=== PATIENT | male | born 1945 | race Caucasian/White ===

== ENCOUNTER 2016-06-24 16:08 | Inpatient (IN) | payer OTHER, MEDICARE ==
[2016-06-24] VITALS (9 sets, daily range): BP systolic 113–196; BP diastolic 59–92; PULSE 75–106; RESP 18–30; TEMP 98.1; O2SAT 84–99
[~2016-06-24] VITALS: Ht 182.9 cm; Wt 115.4 kg
[~2016-06-24 16:08] MED LIST: AZEL0.05 EACH NARE; B12-1CHW CHEW; COQ1200C3 PO; DILT180C56 PO; FISH500C PO; FURO40TA PO; MAGN400T PO; POTA10IN2 PO; PRED5TAB PO; RIVA20 PO; SIMV10TA PO; UMEC1AER INH; VENTAER INH; VITA100C6 PO; VITA400C28 PO
[2016-06-24] MEDS ORDERED: ETOMIDATE 20 MG/10 ML VIAL ONE (16:14)
[2016-06-24] MEDS ORDERED: SUCCINYLCHOLINE CHLORIDE 200 MG/10 ML VIAL ONE (16:15)
[2016-06-24] MEDS ORDERED: SODIUM CHLORIDE 0.9% FLUSH 5 ML FLUSH IVF PRN (16:15)
--- NOTE | 2016-06-24 16:45 | RADRPT ---
EXAM DATE/TIME: 06/24/2016 16:20 [facility] COMPARISON: CHEST PA & LAT, March 21, 2014, 20:13. INDICATIONS : Short of breath. MEDICAL HISTORY : Chronic obstructive pulmonary disease. Carcinoma, lung. Carcinoma, colon. SURGICAL HISTORY : left lower lobectomy,chest wall resection, colon resection ENCOUNTER: Initial ACUITY: 1 day PAIN SCORE: Non-responsive. LOCATION: Bilateral chest FINDINGS: There is a large pneumothorax on the right. Chronic scarring with volume loss on the left but the vol ume loss has increased compatible with a degree of probable acute tension. CONCLUSION: Large right pneumothorax with tension. Emergency department physician aware. Ryan Mccoy MD on June 24, 2016 at 16:42 Board Certified Radiologist. This report was verified electronically.
--- NOTE | 2016-06-24 17:15 | RADRPT ---
EXAM DATE/TIME: 06/24/2016 17:05 [facility] COMPARISON: CHEST PA & LAT, March 21, 2014, 20:13. CHEST SINGLE AP, June 24, 2016, 16:20. INDICATIONS : Post right chest tube placement MEDICAL HISTORY : Chronic obstructive pulmonary disease. Carcinoma, lung. Carcinoma, colon. SURGICAL HISTORY : left lower lobectomy,chest wall resection, colon resection ENCOUNTER: Subsequent ACUITY: 1 day PAIN SCORE: Non-responsive. LOCATION: Bilateral chest FINDINGS: Right chest tube is been placed, tip posterolaterally at the level of the midlung. The lung is reexpa nded. Chronic scarring and volume loss again noted on the left. CONCLUSION: 1. Interim chest tube placement. Pneumothorax has resolved. 2. Potential pleural-based mass laterally of the right lung base. There is also some fullness of the right hilum. CT of the chest suggested, preferably with intravenous contrast.3. Chronic scarring and volume loss on the left. Ryan Mccoy MD on June 24, 2016 at 17:11 Board Certified Radiologist. This report was verified electronically.
[2016-06-24 17:20] LABS: AUTOMATED NEUTROPHIL # 5.3 TH/MM3 (1.8-7.7); BASOPHIL # 0.1 TH/MM3 (0-0.2); BASOPHIL % 0.6 % (0.0-2.0); EOSINOPHIL # 0.1 TH/MM3 (0-0.4); EOSINOPHIL % 1.6 % (0.0-4.0); HEMATOCRIT 37.9 % (39.0-51.0); HEMO FLAGS DIFF FINAL; LYMPHOCYTE # 2.2 TH/MM3 (1.0-4.8); MEAN CELL VOLUME 94.2 FL (80.0-100.0); MEAN CORPUSCULAR HEMOGLOBIN 31.8 PG (27.0-34.0); MEAN CORPUSCULAR HGB CONC 33.7 % (32.0-36.0); MONO % 10.3 % (0.0-8.0); NEUT % 61.5 % (16.0-70.0); PLATELET COUNT 133 TH/MM3 (150-450); RED BLOOD COUNT 4.03 MIL/MM3 (4.50-5.90); RED CELL DISTRIBUTION WIDTH 15.6 % (11.6-17.2); WHITE BLOOD COUNT 8.6 TH/MM3 (4.0-11.0)
[2016-06-24 17:32] LABS: ANION GAP 10 MEQ/L (5-15); AST (GOT) 18 U/L (15-37); BICARBONATE 30.1 MEQ/L (21.0-32.0); BLOOD UREA NITROGEN 24 MG/DL (7-18); CHLORIDE 95 MEQ/L (98-107); GLOMERULAR FILTRATION RATE 62 ML/MIN (>89); MAGNESIUM 1.7 MG/DL (1.5-2.5); POTASSIUM 3.2 MEQ/L (3.5-5.1); SODIUM (NA) 135 MEQ/L (136-145)
[2016-06-24 17:33] LABS: APTT (PATIENT) 27.1 SEC (24.3-30.1); INTERNATIONAL NORMALIZED RATIO 1.1 RATIO
[2016-06-24 17:37] LABS: ALKALINE PHOSPHATASE 95 U/L (45-117); ALT (GPT) 23 U/L (12-78); TOTAL BILIRUBIN ADULT 0.7 MG/DL (0.2-1.0)
[2016-06-24 17:56] LABS: BLOOD GAS BASE EXCESS 2.7 mmol/L (-2-2); BLOOD GAS CARBOXYHEMOGLOBIN 2.2 % (0-4); BLOOD GAS HCO3 27 mmol/L (22-26); BLOOD GAS METHEMOGLOBIN 1.9 % (0-2); BLOOD GAS O2 HGB SATURATION 96 % (90-100); BLOOD GAS PCO2 46 mmHg (38-42); BLOOD GAS PO2 239 mmHG (61-120); BLOOD GAS TOTAL HGB 12.3 G/DL (12.0-16.0); CRITICAL VALUE NO; TEMP CORR TO 98.6
[2016-06-24 17:57] LABS: DRAW SITE RT BRACHIAL; FIO2 100 %; LITER FLOW 15 L/M; NUMBER OF ARTERIAL PUNCTURES 1; OXYGEN DEVICE NON REBREATHER; STAT YES
[2016-06-24] MEDS ORDERED: MULT-135 PO (18:53)
[2016-06-24] MEDS ORDERED: MAGN400T2 PO (18:53)
[2016-06-24] MEDS ORDERED: XARE20TA PO (18:53)
[2016-06-24] MEDS ORDERED: PRED5TAB PO (18:53)
[2016-06-24] MEDS ORDERED: DILT180C56 PO (18:53)
[2016-06-24] MEDS ORDERED: FURO1TAB60 PO (18:53)
[2016-06-24] MEDS ORDERED: UMEC1AER INH (18:53)
[2016-06-24] MEDS ORDERED: VENTAER INH (18:53)
[2016-06-24] MEDS ORDERED: CHOL50008 PO (18:53)
[2016-06-24] MEDS ORDERED: POTA-163 PO (18:53)
[2016-06-24] MEDS ORDERED: CYAN1TAB22 PO (18:53)
[2016-06-24] MEDS ORDERED: AZEL1SPR2 EACH NARE (18:53)
[2016-06-24] MEDS ORDERED: GLYB2.5T3 PO (18:53)
[2016-06-24] MEDS ORDERED: COQ1200C PO (18:53)
[2016-06-24] MEDS ORDERED: IPRASOL NEB (18:53)
[2016-06-24] MEDS ORDERED: ZOCO40TA PO (18:53)
[2016-06-24] MEDS ORDERED: TAMS0.4C4 PO (18:53)
--- NOTE | 2016-06-24 19:49 | PD ---
HPI Chief Complaint: Respiratory Distress Time Seen by Provider: 16:12 Travel History International Travel<30 days: No Contact w/Intl Traveler<30days: No Traveled to known affect area: No History of Present Illness HPI This 70-year-old man presents to the emergency department in extremis with shortness of breath. Patient describes couple days of URI symptoms, gradually worsening, with abrupt worsening this morning. He states he was using the commode when he had abrupt onset of severe shortness of breath. Symptoms been worsening since onset. He called the ambulance. He has a history of lung CA, status post partial resection on the left. No history of previous similar symptoms. With EMS he received Solu-Medrol, nebs, and was placed on nonrebreather. The best oxygen saturation to get on him was in the high 70s low 80s. History Past Medical History Narrative Medical History of colon cancer, cured History of lung cancer, probably cured but still being evaluated. He follows with Dr. Shoemaker. Social History Alcohol Use: No Tobacco Use: No (QUIT 16 YRS AGO) Allergies-Medications (Allergen,Severity, Reaction): Coded Allergies: Contrast Media (Verified Allergy, Severe, Hives, 06/24/16) Reported Meds & Prescriptions Reported Meds & Active Scripts Active Reported Xarelto (Rivaroxaban) 20 Mg Tab 20 Mg PO DAILY Ventolin Hfa 18 GM Inh (Albuterol Sulfate) 90 Mcg/Act Aer 1-2 Puff INH Q4-6H PRN Tamsulosin (Tamsulosin HCl) 0.4 Mg Cap 0.4 Mg PO HS Zocor (Simvastatin) 40 Mg Tab 40 Mg PO HS Prednisone 5 Mg Tab 5 Mg PO DAILY Potassium Chloride ER (Potassium Chloride) 20 Meq Tab 20 Meq PO DAILY Multi Vitamin (Multiple Vitamin) 1 Tab Tab 1 Tab PO DAILY Magnesium Oxide 400 Mg Tab 400 Mg PO DAILY Duoneb (Ipratropium-Albuterol Neb) 0.5-2.5 Mg/3 Ml Neb 1 Vial NEB BID Glyburide 2.5 Mg Tab 2.5 Mg PO DAILY Take with meals at the same time each day Lasix (Furosemide) 40 Mg Tab 40 Mg PO DAILY Diltiazem CD 24 HR 180 Mg Caper 180 Mg PO DAILY Vitamin D3 (Cholecalciferol) 5,000 Unit Tab 5,000 Units PO DAILY Coq10 (Coenzyme Q10 (Ubidecarenone)) 200 Mg Cap 200 Mg PO DAILY Vitamin B-12 (Cyanocobalamin) 5,000 Mcg Tab 5,000 Mcg PO DAILY Azelastine Nasal [place] (Azelastine HCl) 0.1% [place] 1 [place] EACH NARE DAILY Anoro Ellipta Inh (Umeclidinium/Vilanterol) 62.5-25 Mcg/Act Aero 1 Puff INH DAILY Review of Systems ROS Limitations: Clinical Condition Physical Exam Narrative GENERAL: 70-year-old man, marked respiratory distress. HEAD: Atraumatic. Normocephalic. EYES: Pupils equal and round. No scleral icterus. No injection or drainage. ENT: No nasal bleeding or discharge. Mucous membranes pink and moist. NECK: Trachea midline. No JVD. CARDIOVASCULAR: Tachycardia. No appreciable murmurs. RESPIRATORY: Marked respiratory distress. Faint wheezing on the left. Diminished breath sounds on the right. GASTROINTESTINAL: Abdomen soft, non-tender, nondistended. Hepatic and splenic margins not palpable. MUSCULOSKELETAL: No obvious deformities. No edema. NEUROLOGICAL: Awake and alert. No obvious cranial nerve deficits. Motor grossly within normal limits. Normal speech. PSYCHIATRIC: Appropriate mood and affect; insight and judgment normal. Data Data Last Documented VS Vital Signs Date Time Temp Pulse Resp B/P Pulse Ox O2 Delivery O2 Flow Rate FiO2 06/24/16 19:27 86 28 123/64 97 Non-Rebreather 15 06/24/16 16:11 98.1 Orders Complete Blood Count With Diff (06/24/16 16:12) Comprehensive Metabolic Panel (06/24/16 16:12) B-Type Natriuretic Peptide (06/24/16 16:12) D-Dimer (06/24/16 16:12) Act Partial Throm Time (Ptt) (06/24/16 16:12) Prothrombin Time / Inr (Pt) (06/24/16 16:12) Magnesium (Mg) (06/24/16 16:12) Troponin I (06/24/16 16:12) Arterial Blood Gas (Abg) (06/24/16 16:12) Iv Access Insert/Monitor (06/24/16 16:12) Electrocardiogram (06/24/16 16:12) Ecg Monitoring (06/24/16 16:12) Oximetry (06/24/16 16:12) Oxygen Administration (06/24/16 16:12) Chest, Single Ap (06/24/16 16:12) Sodium Chloride 0.9% Flush (Ns Flush) (06/24/16 16:15) Resp Bipap / Cpap Non Invas Vt (06/24/16 16:12) Etomidate Inj (Amidate Inj) (06/24/16 16:14) Succinylcholine Inj (Quelicin Inj) (06/24/16 16:15) Chest, Single Ap (06/24/16 ) Admit Order (Ed Use Only) (06/24/16 ) Labs Laboratory Tests Test 06/24/16 06/24/16 16:40 17:40 White Blood Count 8.6 TH/MM3 Red Blood Count 4.03 MIL/MM3 Hemoglobin 12.8 GM/DL Hematocrit 37.9 % Mean Corpuscular Volume 94.2 FL Mean Corpuscular Hemoglobin 31.8 PG Mean Corpuscular Hemoglobin 33.7 % Concent Red Cell Distribution Width 15.6 % Platelet Count 133 TH/MM3 Mean Platelet Volume 8.2 FL Neutrophils (%) (Auto) 61.5 % Lymphocytes (%) (Auto) 26.0 % Monocytes (%) (Auto) 10.3 % Eosinophils (%) (Auto) 1.6 % Basophils (%) (Auto) 0.6 % Neutrophils # (Auto) 5.3 TH/MM3 Lymphocytes # (Auto) 2.2 TH/MM3 Monocytes # (Auto) 0.9 TH/MM3 Eosinophils # (Auto) 0.1 TH/MM3 Basophils # (Auto) 0.1 TH/MM3 CBC Comment DIFF FINAL Differential Comment Prothrombin Time 12.0 SEC Prothromb Time International 1.1 RATIO Ratio Activated Partial 27.1 SEC Thromboplast Time D-Dimer Quantitative (PE/DVT) 0.48 MG/L FEU Sodium Level 135 MEQ/L Potassium Level 3.2 MEQ/L Chloride Level 95 MEQ/L Carbon Dioxide Level 30.1 MEQ/L Anion Gap 10 MEQ/L Blood Urea Nitrogen 24 MG/DL Creatinine 1.16 MG/DL Estimat Glomerular Filtration 62 ML/MIN Rate Random Glucose 213 MG/DL Calcium Level 9.1 MG/DL Magnesium Level 1.7 MG/DL Total Bilirubin 0.7 MG/DL Aspartate Amino Transf 18 U/L (AST/SGOT) Alanine Aminotransferase 23 U/L (ALT/SGPT) Alkaline Phosphatase 95 U/L Troponin I LESS THAN 0.02 NG/ML B-Type Natriuretic Peptide 184 PG/ML Total Protein 8.1 GM/DL Albumin 3.7 GM/DL Blood Gas Puncture Site RT BRACHIAL Blood Gas Patient Temperature 98.6 Blood Gas HCO3 27 mmol/L Blood Gas Base Excess 2.7 mmol/L Blood Gas Oxygen Saturation 96 % Arterial Blood pH 7.39 Arterial Blood Partial 46 mmHg Pressure CO2 Arterial Blood Partial 239 mmHG Pressure O2 Arterial Blood Oxygen Content 17.0 Vol % Arterial Blood 2.2 % Carboxyhemoglobin Arterial Blood Methemoglobin 1.9 % Blood Gas Hemoglobin 12.3 G/DL Oxygen Delivery Device NON REBREATHER Blood Gas Liter Flow 15 L/M Blood Gas Inspired Oxygen 100 % [facility] Medical Decision Making Medical Screen Exam Complete: Yes Emergency Medical Condition: Yes Interpretation(s) LABS: CBC remarkable for mild anemia. CMP generally unremarkable. Troponin negative BNP 184 Initial chest x-ray shows large right sided pneumothorax, repeat after chest tube shows resolution of the pneumothorax as well as a pleural-based mass laterally in the right lung base with fullness in the right hilum. Differential Diagnosis Pneumothorax, pneumonia, tumor, PE, other Narrative Course Medical decision making 70-year-old male presents emergent department in extremis respiratory distress found to have asymmetric lung sounds just of pneumothorax, confirmed on x-ray. Emergent chest tube was placed at the bedside by myself following procedural sedation with Etomidate. Patient tolerated well. Patient be admitted for further evaluation. Procedures Procedure Narrative After the risks and benefits were discussed the following procedure was performed: MODERATE SEDATION: The patient was placed on a shoe repairer and pulse oximetry. An ambu bag and suction was immediately available at bedside. The patient was monitored by the nurse. Oxygen saturation, heart rate and blood pressure were monitored. Procedural sedation was acheived using 8 mg of vomiting. The patient was observed until awake and alert. Procedural Sedation time in attendance was 25 minutes. CHEST TUBE THORACOSTOMY: The right chest was prepped with Betadine and sterilely draped. The area of the fifth intercostal interspace was infiltrated with 1% lidocaine plain. A 0.5 centimeter incision was made with a scalpel at the fifth intercostal space. Pigtail catheter was placed using trocar. Tube draining well. The thoracostomy tube was secured with suture. Sterile seal dressing placed. Patient tolerated procedure well. Diagnosis Primary Impression: Pneumothorax Qualified Code: J93.11 - Primary spontaneous pneumothorax Gary Gomez MD Jun 24, 2016 19:49
[2016-06-24] MEDS ORDERED: SODIUM CHLORIDE 0.9% FLUSH 5 ML FLUSH FLUSH PRN (20:15)
[2016-06-24] MEDS ORDERED: NALOXONE HCL 0.4 MG/ML AMP IV PRN (20:15)
[2016-06-24] MEDS: SODIUM CHLORIDE 0.9% FLUSH 5 ML FLUSH FLUSH SCH (21:38)
[2016-06-25] VITALS (12 sets, daily range): BP systolic 104–154; BP diastolic 62–95; PULSE 78–134; RESP 20–40; TEMP 97.9–98.9; O2SAT 88–100
[2016-06-25 04:23] LABS: AUTOMATED NEUTROPHIL # 5.3 TH/MM3 (1.8-7.7); BASOPHIL % 0.2 % (0.0-2.0); HEMATOCRIT 36.5 % (39.0-51.0); HEMO FLAGS DIFF FINAL; LYMPH % 2.9 % (9.0-44.0); LYMPHOCYTE # 0.2 TH/MM3 (1.0-4.8); MEAN CELL VOLUME 93.8 FL (80.0-100.0); MEAN CORPUSCULAR HGB CONC 34.1 % (32.0-36.0); MONO % 1.4 % (0.0-8.0); NEUT % 95.5 % (16.0-70.0); PLATELET COUNT 116 TH/MM3 (150-450); RED BLOOD COUNT 3.89 MIL/MM3 (4.50-5.90); RED CELL DISTRIBUTION WIDTH 15.4 % (11.6-17.2); WHITE BLOOD COUNT 5.6 TH/MM3 (4.0-11.0)
[2016-06-25 04:40] LABS: BICARBONATE 27.7 MEQ/L (21.0-32.0); POTASSIUM 4.2 MEQ/L (3.5-5.1)
--- NOTE | 2016-06-25 05:31 | HHI.HP ---
HPI Service [facility] Primary Care Physician Debbie Mcgee DO Admission Diagnosis Pneumothorax Diagnoses: Chief Complaint: Shortness of breath, low O2 sats Travel History International Travel<30 Days: No Contact w/Intl Traveler <30 Da: No Traveled to Known Affected Are: No History of Present Illness History from patient, ER physician communication, and review of medical records. Patient reported that he has been chronically short of breath for the past several months. However he stated yesterday, he also immediately noted that his O2 saturation were going down to the 70s. He stated he just was not reported to catch his breath and told his to call 911. He denies any fever. Denies hemoptysis. Patient attributed this to his constipation. He stated he was constipated all day long Has been sitting on the toilet all day long. He reports of history of emphysema. However is not sure whether he has bullous emphysema. Patient also has history of lung cancer bilaterally. However he did complete all treatments by 2013. In the emergency room, patient was found to have large right sided tension pneumothorax. Chest tube was placed by ER physician. Repeat chest x-ray post chest tube placement showed well expanded lungs. No complications. Review of Systems Constitutional: DENIES: Fatigue, Fever, Weight gain, Weight loss, Chills Respiratory: COMPLAINS OF: Cough, Shortness of breath, DENIES: Apneas, Snoring , Wheezing, Hemoptysis, Sputum production Cardiovascular: COMPLAINS OF: Dyspnea on Exertion, Lower Extremity Edema, Orthopnea, DENIES: Chest pain, Palpitations, Syncope, PND Gastrointestinal: COMPLAINS OF: Constipation, DENIES: Abdominal pain, Black stools, Bloody stools, Diarrhea, Nausea, Vomiting Genitourinary: DENIES: Urinary frequency, Urinary incontinence, Urgency, Hematuria, Dysuria, Nocturia Musculoskeletal: COMPLAINS OF: Muscle aches, DENIES: Joint pain, Stiffness, Back pain, Neck pain Hematologic/lymphatic: DENIES: Bruising Neurologic: COMPLAINS OF: Tremor, DENIES: Abnormal gait, Headache, Localized weakness, Seizures, Poor Balance Psychiatric: COMPLAINS OF: Anxiety Past Family Social History Past Medical History Hypertension Diet control diabetes Atrial fibrillationon chronic anticoagulation was Xarelto COPD/emphysema Left lower lobe lung cancerin 2005. Left lower lobectomy, chemotherapy, radiation therapy then. Right lung cancersmall [id number]. Status post chemotherapy and radiation therapy then. History of colon [id number]. Status post partial colon resection. 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 Multiple ureteral stents placements and removals. Latest intervention was last Friday by Dr. Aviles with cystoscopy and balloon dilatation versus removal. Chronic kidney disease Past Surgical History Partial colon resection Left lower lobe removal Hernia repair MediPort placement Reported Medications Patient's medications listed in EMR just reviewed. Patient does have a list of his meds on his phone. Allergies: Coded Allergies: Contrast Media (Verified Allergy, Severe, Hives, 06/24/16) Family History Mother who at 43 years old from breast cancer. Father at 49. Unknown cause. Social History Used to smoke cigarettes quit in 1999. Denies any alcohol abuse or use. Lives with his . Still driving. Physical Exam Vital Signs Vital Signs Date Time Temp Pulse Resp B/P Pulse Ox O2 Delivery O2 Flow Rate FiO2 06/24/16 23:17 87 18 113/59 97 Non-Rebreather 15 06/24/16 21:45 97 Non-Rebreather 12.00 06/24/16 21:40 98 Non-Rebreather 15 06/24/16 21:40 75 24 128/60 98 Non-Rebreather 15 06/24/16 21:30 96 Venturi Mask 50 06/24/16 21:06 94 Venturi Mask 50 06/24/16 19:30 99 Non-Rebreather 15.00 06/24/16 19:27 86 28 123/64 97 Non-Rebreather 15 06/24/16 17:54 88 20 129/61 99 Non-Rebreather 06/24/16 16:30 106 30 84 BiPAP 06/24/16 16:30 30 84 BiPAP 06/24/16 16:30 84 BiPAP 06/24/16 16:11 98.1 106 30 196/92 91 Physical Exam GENERAL: This is a well-nourished, well-developed patient, in no apparent distress. SKIN: No rashes, ecchymoses or lesions. Cool and dry. HEAD: Atraumatic. Normocephalic. No temporal or scalp tenderness. EYES:. No scleral icterus. No injection or drainage. Airway patent. NECK: Trachea midline. No JVD. Supple, nontender, no meningeal signs. CARDIOVASCULAR: Regular rate and rhythm without murmurs, gallops, or rubs. RESPIRATORY: Clear to auscultation. Breath sounds equal bilaterally. No wheezes , rales, or rhonchi. GASTROINTESTINAL: Abdomen soft, non-tender, nondistended. No hepato-splenomegaly , or palpable masses. No guarding. MUSCULOSKELETAL: Extremities without clubbing, cyanosis, or edema. No calf tenderness. NEUROLOGICAL: Awake and alert. Motor and sensory grossly within normal limits. Five out of 5 muscle strength in all muscle groups. Normal speech. Laboratory Laboratory Tests Test 06/24/16 06/24/16 06/25/16 16:40 17:40 03:30 White Blood Count 8.6 5.6 Red Blood Count 4.03 3.89 Hemoglobin 12.8 12.4 Hematocrit 37.9 36.5 Mean Corpuscular Volume 94.2 93.8 Mean Corpuscular Hemoglobin 31.8 32.0 Mean Corpuscular Hemoglobin 33.7 34.1 Concent Red Cell Distribution Width 15.6 15.4 Platelet Count 133 116 Mean Platelet Volume 8.2 8.3 Neutrophils (%) (Auto) 61.5 95.5 Lymphocytes (%) (Auto) 26.0 2.9 Monocytes (%) (Auto) 10.3 1.4 Eosinophils (%) (Auto) 1.6 0.0 Basophils (%) (Auto) 0.6 0.2 Neutrophils # (Auto) 5.3 5.3 Lymphocytes # (Auto) 2.2 0.2 Monocytes # (Auto) 0.9 0.1 Eosinophils # (Auto) 0.1 0.0 Basophils # (Auto) 0.1 0.0 CBC Comment DIFF FINAL DIFF FINAL Differential Comment Prothrombin Time 12.0 Prothromb Time International 1.1 Ratio Activated Partial 27.1 Thromboplast Time D-Dimer Quantitative (PE/DVT) 0.48 Sodium Level 135 139 Potassium Level 3.2 4.2 Chloride Level 95 102 Carbon Dioxide Level 30.1 27.7 Anion Gap 10 9 Blood Urea Nitrogen 24 20 Creatinine 1.16 0.96 Estimat Glomerular Filtration 62 78 Rate Random Glucose 213 168 Calcium Level 9.1 8.7 Magnesium Level 1.7 Total Bilirubin 0.7 Aspartate Amino Transf 18 (AST/SGOT) Alanine Aminotransferase 23 (ALT/SGPT) Alkaline Phosphatase 95 Troponin I LESS THAN 0.02 B-Type Natriuretic Peptide 184 Total Protein 8.1 Albumin 3.7 Blood Gas Puncture Site RT BRACHIAL Blood Gas Patient Temperature 98.6 Blood Gas HCO3 27 Blood Gas Base Excess 2.7 Blood Gas Oxygen Saturation 96 Arterial Blood pH 7.39 Arterial Blood Partial 46 Pressure CO2 Arterial Blood Partial 239 Pressure O2 Arterial Blood Oxygen Content 17.0 Arterial Blood 2.2 Carboxyhemoglobin Arterial Blood Methemoglobin 1.9 Blood Gas Hemoglobin 12.3 Oxygen Delivery Device NON REBREATHER Blood Gas Liter Flow 15 Blood Gas Inspired Oxygen 100 Result Diagram: 06/25/160 06/25/16 033 Imaging Vital Signs Date Time Temp Pulse Resp B/P Pulse Ox O2 Delivery O2 Flow Rate FiO2 06/25/16 06:17 90 20 145/74 99 Non-Rebreather 15 06/24/16 21:30 50 06/24/16 16:11 98.1 Assessment and Plan Assessment and Plan Impression: Right pneumothoraxwith tension. Status post chest tube placement. In ER Hypertension Diet control diabetes Atrial fibrillationon chronic anticoagulation was Xarelto COPD/emphysema Left lower lobe lung cancerin 2005. Left lower lobectomy, chemotherapy, radiation therapy then. Right lung cancersmall [id number]. Status post chemotherapy and radiation therapy then. History of colon [id number]. Status post partial colon resection. 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 Multiple ureteral stents placements and removals. Latest intervention was last Friday by Dr. Aviles with cystoscopy and balloon dilatation versus removal. Chronic kidney disease Plan: Continue chest tube. Pulmonology consult with patient's english and reading instructor. Repeat chest x-ray in about 12 hours. Resume home meds. Once the output from the chest tube is not significant, we'll DC the tube. For now pain control. Nebulizers scheduled and when necessary. Due to prophylaxiswith SCD. Discussed Condition With Patient, ER physician Physician Certification 2 Midnight Certification Type: Admission for Inpatient Services Order for Inpatient Services The services are ordered in accordance with Medicare regulations or non- Medicare payer requirements, as applicable. In the case of services not specified as inpatient-only, they are appropriately provided as inpatient services in accordance with the 2-midnight benchmark. Estimated LOS (days): 3 days is the estimated time the patient will need to remain in the hospital, assuming treatment plan goals are met and no additional complications. Post-Hospital Plan: Home Health Heber Falk MD Jun 25, 2016 05:31
[2016-06-25] MEDS: RESP: ALBUTEROL 2.5 MG/IPRATROPIUM 0.5 MG NEB (SCH) NEB ×3 (09:21→21:06)
[2016-06-25] MEDS: DILTIAZEM-CD 180 MG CAP ER PO SCH (09:53)
[2016-06-25] MEDS: SODIUM CHLORIDE 0.9% FLUSH 5 ML FLUSH FLUSH SCH ×2 (09:53→21:00)
[2016-06-25] MEDS: FUROSEMIDE 40 MG TAB PO SCH (09:54)
[2016-06-25] MEDS: predniSONE 5 MG TAB PO SCH (09:54)
[2016-06-25] MEDS: POTASSIUM CHLORIDE 20 MEQ CONTROLLED RELEASE TAB PO SCH (09:54)
[2016-06-25] MEDS: MAGNESIUM OXIDE 400 MG TAB PO SCH (09:55)
[2016-06-25] MEDS: RIVAROXABAN 20 MG TAB PO SCH (09:55)
[2016-06-25] MEDS: RESP: ALBUTEROL 2.5 MG/IPRATROPIUM 0.5 MG NEB (PRN) NEB (11:58)
--- NOTE | 2016-06-25 12:49 | RADRPT ---
EXAM DATE/TIME: 06/25/2016 12:18 [facility] COMPARISON: CHEST SINGLE AP, June 24, 2016, 16:20. CHEST SINGLE AP, June 24, 2016, 17:05. INDICATIONS : Short of breath, right lung collapse. MEDICAL HISTORY : None. SURGICAL HISTORY : None. ENCOUNTER: Subsequent ACUITY: 2 days PAIN SCORE: 3/10 LOCATION: Right chest FINDINGS: There is a right-sided pneumothorax with approximately 2.8 cm of separation along the mid right hemit horax. The left lung remains grossly clear and well-aerated. There is no significant midline shift. T he heart size is stable. The small chest tube appears to be in place in the right hemithorax. The findings were called by telephone to the nurse taking care of the patient. CONCLUSION: Right-sided pneumothorax with approximately 2.8 cm of separation. Ion Manrique MD on June 25, 2016 at 12:41 Board Certified Radiologist. This report was verified electronically.
[2016-06-25] MEDS ORDERED: DILTIAZEM INJ 125 MG in SODIUM CHLORIDE 0.9% INJ 100 ML IV SCH (13:00)
[2016-06-25] MEDS ORDERED: DILTIAZEM HCL 25 MG/5 ML VIAL IV PUSH ONE (13:00)
[2016-06-25] MEDS ORDERED: SODIUM CHLORIDE 0.9% FLUSH 5 ML FLUSH IVF PRN (13:00)
[2016-06-25] MEDS ORDERED: MIDAZOLAM HCL 2 MG/2 ML VIAL ONE (14:45)
--- NOTE | 2016-06-25 16:10 | PD.RAD ---
Post Procedure Progress Note Pre Procedure Diagnosis: (1) Pneumothorax Post Procedure Diagnosis: (1) Pneumothorax Procedure Date: Jun 25, 2016 Supervising Radiologist: Ryan Hillman Proceduralist/Assist: RT Martín(R) Anesthesia: Local, Conscious Sedation Plan of Activity Patient to Unit: Critical Care Patient Condition: Critical See PACS Report for procedural detail/treatment Drainage Procedure Procedure 1 Imaging Guidance: Fluoroscopy Side: Right Procedure Type: Chest Tube Non-Tunneled Procedure: Placement Macedonian: 12 Drainage: Pleurovac Ryan Hillman MD Jun 25, 2016 16:10
--- NOTE | 2016-06-25 16:33 | RADRPT ---
EXAM DATE/TIME: 06/25/2016 16:12 [facility] COMPARISON: CHEST SINGLE AP, June 25, 2016, 12:18. INDICATIONS : Chest tube placement. MEDICAL HISTORY : Carcinoma, colon. Chronic obstructive pulmonary disease. Carcinoma, lung. SURGICAL HISTORY : left lower lobectomy,chest wall resection, colon resection. ENCOUNTER: Subsequent ACUITY: 2 days PAIN SCORE: 0/10 LOCATION: Bilateral chest FINDINGS: The exam demonstrates a right-sided chest tube in good position. There is complete reinflation of the right lung. There is a small amount of subcutaneous emphysema. There are chronic interstitial change s seen bilaterally. CONCLUSION: 1. Right chest tube in good position with complete reinflation of the right lung. Aron Dorsey MD on June 25, 2016 at 16:31 Board Certified Radiologist. This report was verified electronically.
--- NOTE | 2016-06-25 16:40 | RADRPT ---
EXAM DATE/TIME: 06/25/2016 14:56 [facility] COMPARISON: No previous studies available for comparison. INDICATIONS : Patient presents with right sided pneumothorax in need of chest tube placement to inflate lung. MEDICAL HISTORY : HTN Afib COPD Left lower lobe cancer in 2006 Right lung cancer- small cell- 2014 History of colon cancer 2002 Left ureteral stricture Chronic kidney disease SURGICAL HISTORY : Partial colon resection Left lower lobe removal Hernia repair Port placement ENCOUNTER: Initial ACUITY: 1 day PAIN SCORE: 0/10 LOCATION: N/A FLUORO TIME: 1.4 minutes SEDATION TIME: 30 minutes MEDICATION(S): 1.) 1.5 mg midazolam (Versed) IV 2.) 75 mcg fentanyl (Sublimaze) IV DEVICE(S): 1.) 12 [place] non-locking catheter PROCEDURE : 1. Fluoroscopically guided chest tube placement. 2. Conscious sedation with continuous EKG and oximetry monitoring. The risks, benefits and alternatives to the procedure were explained and verbal and written consent w as obtained. The site was prepped in sterile fashion. Full sterile technique was used, including ca p, mask, sterile gloves and gown and a large sterile sheet. Hand hygiene and 2% chlorhexidine and/or betadine/alcohol prep was utilized per protocol for cutaneous antisepsis. The skin and subcutaneous tissues were infiltrated with local anesthetic solution. With fluoroscopic guidance the chest was punctured between the first and second interspace and the pr escribed catheter was placed in the lung apex. Wall suction was applied. Post procedure images demon strate satisfactory position of the tube. The catheter was sutured in place and a Percu-Stay was danyell lied. Conscious sedation was performed with the prescribed dosages and duration as above. The patient kanu ated the procedure well and there were no complications. EKG and oximetry remained stable throughout the procedure. The patient was sent to post anesthesia recovery in stable condition. CONCLUSION: Uncomplicated chest tube placement as above. Ryan Hillman MD on June 25, 2016 at 16:38 Board Certified Radiologist. This report was verified electronically.
--- NOTE | 2016-06-25 18:48 | MB ---
cc: GÓMEZ YEUNG MD DATE OF CONSULTATION 06/25/[address] Falk. REASON FOR CONSULTATION Pneumothorax and shortness of breath. HISTORY OF THE PRESENT ILLNESS Ms. Watkins is a pleasant 70-year-old male who is known to me from the office. He has history of non-small cell carcinoma status post resection and then a small cell carcinoma of the lung. He has chemotherapy and radiation treatment. He also developed radiation pneumonitis. The patient came to the hospital with sudden onset of shortness of breath. The patient states that he was feeling constipated. He has been going in and out of the bathroom. While he was in the bathroom he was straining and suddenly he felt chest pain and shortness of breath to the extent that he could not breathe. The patient's called the [facility]. He was brought to the hospital. He was found to have a large right pneumothorax. He had a chest tube placement with re-expansion of the lung. He still on non-rebreather mask but feels his breathing is better, has mild chest pain. No fever or chills. No night sweats. LABORATORY DATA His WBC count is 5.6, hemoglobin 12.4, hematocrit 36.5, MCV 93, platelet count 116. Sodium 139, potassium 4.2, chloride 102, CO2 27, BUN 20, creatinine 0.96. INR is 1.1. Blood gas on non-rebreather mask pH 7.39, pCO2 46, pO2 239, bicarb 27. PAST MEDICAL HISTORY Significant for: 1. A history of non-small cell carcinoma of the lung status post left lower lobectomy. 2. Small cell carcinoma of the lung status post chemotherapy and radiation therapy. 3. CA of the colon. 4. COPD. 5. Ureteral stent placement. 6. Atrial fibrillation. 7. Hypertension. MEDICATIONS He is currently takin. Flomax 0.4 mg a day. 2. Pravachol 80 mg a day. 3. Diltiazem drip. 4. Lasix 40 mg a day. 5. Potassium supplement. 6. Prednisone 5 mg a day. 7. Xarelto 20 mg a day. 8. Albuterol/Atrovent nebulizer treatment. ALLERGIES ALLERGIC TO CONTRAST MEDIA. SOCIAL HISTORY He is . Mother of breast cancer. He has history of smoking in the past. FAMILY HISTORY Noncontributory. REVIEW OF SYSTEMS Normally he is up, around and active. Does not use oxygen but he is on prednisone for radiation pneumonitis which was being weaned. No seizure, stroke or epilepsy.. PHYSICAL EXAMINATION GENERAL: Well built, well-nourished male in mild to moderate short of breath. He is on a nonrebreather mask. VITAL SIGNS: Blood pressure 114/63, heart rate 80, respirations 20, temperature 98.9. HEENT: Examination unremarkable. NECK: Supple. JVP not raised. CHEST: He has a right chest tube in place. Good breath sounds bilaterally. He has air leak. No SQ emphysema. CARDIOVASCULAR: S1, S2 irregular. ABDOMEN: Soft, nondistended. Bowel sounds are present. EXTREMITIES: 1+ pitting edema. IMPRESSION 1. Spontaneous right pneumothorax status post chest tube placement. 2. Small cell carcinoma of the lung status post left lower lobectomy. 3. Small cell carcinoma of the lung status post chemotherapy and radiation therapy. 4. History of CA of the colon. 5. COPD. 6. Atrial fibrillation. PLAN The patient is being admitted to the Intensive Care Unit. We will leave the chest tube to suction once the air leak stops, then we will repeat chest x-ray and clamp the chest tube. Continue aerosol treatment and p.o. steroid. He is on diltiazem and Xarelto. Supplement the oxygen to keep the saturation greater than 90%. Further treatment will depend on the course in the hospital. Thank you Dr. Falk for this consultation. MD CATHERINE Odom/MICHELE /5:53 PM /6:35 PM YOLY
--- NOTE | 2016-06-25 20:28 | PD.CONS ---
[facility] Service Critical Care Medicine Consult Requested By Dr. Sadler Reason for Consult acute hypoxia with respiratory distress Primary Care Physician Debbie Mcgee, DO History of Present Illness This is a 70-year-old male who presented the emergency department in apparent respiratory distress and shortness of breath. The patient describes chronic shortness of breath over the past few months with increase shortness of breath over the last 1 day. He states that he had abrupt onset of this when he was having a bowel movement and bearing down. In the ER, it was noted to have a complete right-sided pneumothorax with early midline shift the mediastinum to the left. A emergent right set up until chest tube was placed by the ER physician. This subsequently decompressed pneumothorax and the patient felt better. He was admitted to hospitalist service. However, while being in the ER home he again had acute shortness of breath and hypoxia. A repeat chest x- ray demonstrated reexpansion of the right-sided pneumothorax. Patient also went into atrial fibrillation with rapid ventricular response. He was given 30 mill grams of diltiazem IV and was placed on a nonrebreather. Critical-care medicine was consulted to evaluate and manage his rapid ventricular response and also his hypoxia and recurrent pneumothorax. Review of Systems Constitutional: DENIES: Diaphoretic episodes, Fatigue, Fever, Chills, Dizziness Respiratory: COMPLAINS OF: Shortness of breath, DENIES: Cough, Wheezing, Hemoptysis, Sputum production Cardiovascular: DENIES: Chest pain, Syncope, Dyspnea on Exertion, Orthopnea Gastrointestinal: DENIES: Abdominal pain, Constipation, Diarrhea, Nausea, Vomiting Past Family Social History Allergies: Coded Allergies: Contrast Media (Verified Allergy, Severe, Hives, 06/24/16) Past Medical History History of colon cancer in remission History of left-sided non-small cell lung cancer History of right sided small cell lung cancer status post XRT Hypertension Diabetes Atrial fibrillation on chronic anicteric regulation with cerebral toe COPD Left ureteral stricture CKD, unknown stage Past Surgical History Partial colon resection Left lower lobe lobectomy Hernia repair Port placement Reported Medications Xarelto Albuterol inhaler Tamsulosin Zocor Prednisone 5 mg daily The dried Lasix 40 mg daily Diltiazem 180 mg daily Active Ordered Medications See MAR Family History Was reviewed in the chart and found to be noncontributory to his acute illness. No family history of spontaneous pneumothorax Social History Prior smoker, quit in 1999. Denies alcohol. Denies drugs of abuse. Physical Exam Vital Signs Vital Signs Date Time Temp Pulse Resp B/P Pulse Ox O2 Delivery O2 Flow Rate FiO2 06/25/16 18:00 88 06/25/16 17:00 98 Non-Rebreather 15.00 06/25/16 17:00 98.3 78 32 111/62 98 06/25/16 17:00 84 06/25/16 16:03 88 20 114/63 99 Non-Rebreather 06/25/16 13:21 102 30 138/67 96 Non-Rebreather 06/25/16 12:21 98.9 134 30 148/95 96 Non-Rebreather 06/25/16 11:22 108 26 138/87 97 Non-Rebreather 06/25/16 10:00 88 06/25/16 09:56 99 40 154/80 91 Partial Rebreather 06/25/16 09:26 100 Non-Rebreather 15.00 06/25/16 06:17 90 20 145/74 99 Non-Rebreather 15 06/24/16 23:17 87 18 113/59 97 Non-Rebreather 15 06/24/16 21:45 97 Non-Rebreather 12.00 06/24/16 21:40 98 Non-Rebreather 15 06/24/16 21:40 75 24 128/60 98 Non-Rebreather 15 06/24/16 21:30 96 Venturi Mask 50 06/24/16 21:06 94 Venturi Mask 50 Physical Exam GENERAL: Elderly male, sitting in bed, mild respiratory distress HEENT: Normocephalic, atraumatic. Pupils equally round and reactive. Mucous membranes are moist. NECK: Trachea is midline. JVD unable to assess secondary to obesity CHEST: Mildly tachypneic, mildly labored. Scant expiratory wheezes. Significant decreased breath sounds on the right. There is a small pigtail chest tube which exits the right chest about the fifth intercostal space. There is a significant air leak with this chest tube. Chest tube is to suction. Minimal serosanguineous drainage. CARDIOVASCULAR: Normal rate, irregularly irregular rhythm. Rate is in the 90s on my evaluation. No appreciable murmurs. ABDOMEN: Obese, soft, nontender, nondistended. No guarding. MUSCULOSKELETAL: 1+ peripheral edema. Distal pulses 2+. NEUROLOGICAL: RASS 0. CAM -. Follows commands all 4 extremity. Laboratory Laboratory Tests Test 06/25/16 03:30 White Blood Count 5.6 Red Blood Count 3.89 Hemoglobin 12.4 Hematocrit 36.5 Mean Corpuscular Volume 93.8 Mean Corpuscular Hemoglobin 32.0 Mean Corpuscular Hemoglobin 34.1 Concent Red Cell Distribution Width 15.4 Platelet Count 116 Mean Platelet Volume 8.3 Neutrophils (%) (Auto) 95.5 Lymphocytes (%) (Auto) 2.9 Monocytes (%) (Auto) 1.4 Eosinophils (%) (Auto) 0.0 Basophils (%) (Auto) 0.2 Neutrophils # (Auto) 5.3 Lymphocytes # (Auto) 0.2 Monocytes # (Auto) 0.1 Eosinophils # (Auto) 0.0 Basophils # (Auto) 0.0 CBC Comment DIFF FINAL Differential Comment Sodium Level 139 Potassium Level 4.2 Chloride Level 102 Carbon Dioxide Level 27.7 Anion Gap 9 Blood Urea Nitrogen 20 Creatinine 0.96 Estimat Glomerular Filtration 78 Rate Random Glucose 168 Calcium Level 8.7 Result Diagram: 06/25/16 0330 06/25/16 0330 Assessment and Plan Assessment and Plan Assessment: This is a 70-year-old male with history of COPD and atrial fibrillation who presents now with atrial fibrillation with rapid ventricular response as well as a spontaneous pneumothorax which was initially decompressed with a right-sided pectoral chest tube but now 3 cannulated. Either, the pectoral chest tube is not working properly though it would be unlikely given that it still has a large air leak, more likely is that the pigtail chest tube is in adequate to drain the large air leak and the patient has. We will consult original radiology and will have them place a second anterior pigtail chest tube to relieve the pneumothorax. I do think that his rapid ventricular response likely related the fact he is not taking his diltiazem today and the catecholamine response associated with his labored breathing and pneumothorax. Certainly, given the patient's comorbidities and age, along with the fact that he is a recurrent pneumothorax causing respiratory distress, the patient remains critically ill as time. I agree with admitting him to the ICU. Active problems: Recurrent right-sided pneumothorax acute hypoxic respiratory failure Atrial fibrillation with rapid ventricular response Plan: IR consult for anterior chest tube placement for recurrent pneumothorax Wean oxygen for goal SPO2 greater than 90% Continue chest tube to suction Continue diltiazem infusion as needed for goal heart rate greater than 120 I agree with the hospitalist plan as documented earlier in the day. Admit the patient to the ICU. The patient's new infarct resolves, and he remained stable in the ICU overnight , I think it may be safe to evaluate tomorrow and possibly transfer him to the floor. This patient remains critically ill with one or more organ systems which are or may become a threat to life. I have spent in excess of 30 minutes discontinuously in the care and management of this patient. This time is exclusive of procedures, and includes, but is not limited to, evaluation of the patient, review of the medical record, discussions with family, consultants, nursing staff, or respiratory therapy, and documentation in the medical record. Abhijeet Warren MD Jun 25, 2016 20:28
[2016-06-25] MEDS: TAMSULOSIN HCL 0.4 MG CAP PO SCH (21:00)
[2016-06-25] MEDS: PRAVASTATIN SOD 80 MG TAB PO SCH (21:00)
--- NOTE | 2016-06-25 23:57 | EKG ---
Date Performed: 06/24/2016 Time Performed: 16:14:42 PTAGE: 70 years EKG: ATRIAL FIBRILLATION WITH RAPID VENTRICULAR RESPONSE MARKED LEFT AXIS DEVIATION INTRAVENTRIC ULAR CONDUCTION DELAY ABNORMAL ECG PREVIOUS TRACING : 03/21/2014 19.48 DOCTOR: David Murry Interpretating Date/Time 06/25/2016 23:49:24
[2016-06-26] VITALS (12 sets, daily range): BP systolic 101–116; BP diastolic 55–75; PULSE 61–91; RESP 17–20; TEMP 97.5–98; O2SAT 92–96
[2016-06-26] MEDS ORDERED: FUROSEMIDE 20 MG/2 ML VIAL IV PUSH ONE (00:15)
--- NOTE | 2016-06-26 02:44 | RADRPT ---
EXAM DATE/TIME: 06/26/2016 02:17 [facility] COMPARISON: CHEST EXPIRATION ONLY, June 25, 2016, 16:12. INDICATIONS : Pneumothorax MEDICAL HISTORY : Carcinoma, colon. Chronic obstructive pulmonary disease. Carcinoma, lung. SURGICAL HISTORY : ENCOUNTER: Subsequent ACUITY: 2 days PAIN SCORE: Non-responsive. LOCATION: Bilateral chest FINDINGS: A single portable frontal view the chest shows 2 small caliber thoracostomy tubes involving the right hemithorax. There is a lateral pneumothorax which is small. This is new from the prior exam. Separat ion from the overlying parietal pleura is 12 mm. Heart remains mildly enlarged. Volume loss on the le ft in the thorax unchanged. Old trauma involving the left rib cage. CONCLUSION: Small lateral right pneumothorax despite 2 small caliber thoracostomy tubes. Italo Carrillo Jr., MD on June 26, 2016 at 2:41 Board Certified Radiologist. This report was verified electronically.
[2016-06-26] MEDS: RESP: ALBUTEROL 2.5 MG/IPRATROPIUM 0.5 MG NEB (SCH) NEB ×2 (03:46→08:43)
[2016-06-26 04:39] LABS: HEMATOCRIT 33.5 % (39.0-51.0); MEAN CELL VOLUME 92.6 FL (80.0-100.0); MEAN CORPUSCULAR HEMOGLOBIN 31.6 PG (27.0-34.0); MEAN CORPUSCULAR HGB CONC 34.1 % (32.0-36.0); PLATELET COUNT 116 TH/MM3 (150-450); RED BLOOD COUNT 3.62 MIL/MM3 (4.50-5.90); RED CELL DISTRIBUTION WIDTH 15.5 % (11.6-17.2); REVIEW FLAG FINAL; WHITE BLOOD COUNT 8.9 TH/MM3 (4.0-11.0)
[2016-06-26 05:08] LABS: BICARBONATE 28.1 MEQ/L (21.0-32.0); POTASSIUM 3.8 MEQ/L (3.5-5.1)
[2016-06-26] MEDS: RIVAROXABAN 20 MG TAB PO SCH ×2 (08:11→09:00)
[2016-06-26] MEDS: POTASSIUM CHLORIDE 20 MEQ CONTROLLED RELEASE TAB PO SCH (08:11)
[2016-06-26] MEDS: predniSONE 5 MG TAB PO SCH (08:11)
[2016-06-26] MEDS: DILTIAZEM-CD 180 MG CAP ER PO SCH (08:11)
[2016-06-26] MEDS: FUROSEMIDE 40 MG TAB PO SCH (08:11)
[2016-06-26] MEDS: MAGNESIUM OXIDE 400 MG TAB PO SCH (08:11)
[2016-06-26] MEDS: SODIUM CHLORIDE 0.9% FLUSH 5 ML FLUSH FLUSH SCH (08:12)
--- NOTE | 2016-06-26 12:01 | EKG ---
Date Performed: 06/25/2016 Time Performed: 12:56:48 PTAGE: 70 years EKG: ATRIAL FIBRILLATION WITH RAPID VENTRICULAR RESPONSE LEFT ANTERIOR FASCICULAR BLOCK ST DEVIA TION AND MODERATE T-WAVE ABNORMALITY, CONSIDER LATERAL ISCHEMIA ABNORMAL ECG PREVIOUS TRACING : 06/24/2016 16.14 DOCTOR: Gray Meadows Interpretating Date/Time 06/26/2016 11:59:48
[2016-06-26] MEDS: RESP: ALBUTEROL 2.5 MG/IPRATROPIUM 0.5 MG NEB (PRN) NEB (12:33)
--- NOTE | 2016-06-26 12:52 | HHI.PR ---
Subjective Remarks The patient was receiving a breathing treatment. He says that his breathing was better. He said that he had pain at the site of the second chest tube placement. His past was at the bedside. Discussed with nursing. Objective Vitals Vital Signs Date Time Temp Pulse Resp B/P Pulse Ox O2 Delivery O2 Flow Rate FiO2 06/26/16 10:00 90 06/26/16 08:44 96 Nasal Cannula 2.00 06/26/16 08:00 97.8 68 20 108/70 96 06/26/16 08:00 61 06/26/16 07:00 96 Nasal Cannula 3.00 06/26/16 06:00 70 06/26/16 04:00 64 06/26/16 04:00 64 17 101/55 95 06/26/16 03:53 93 Nasal Cannula 4.00 06/26/16 02:00 70 06/26/16 00:00 98.0 68 18 105/63 92 06/26/16 00:00 68 06/25/16 22:00 78 06/25/16 21:07 Venturi Mask 6.00 35 06/25/16 21:00 Venturi Mask 35 06/25/16 20:00 78 06/25/16 20:00 97.9 78 35 104/74 100 06/25/16 18:00 88 06/25/16 17:00 98 Non-Rebreather 15.00 06/25/16 17:00 98.3 78 32 111/62 98 06/25/16 17:00 84 06/25/16 16:03 88 20 114/63 99 Non-Rebreather 06/25/16 13:21 102 30 138/67 96 Non-Rebreather I/O 06/25/16 06/25/16 06/25/16 06/26/16 06/26/16 06/26/16 07:00 15:00 23:00 07:00 15:00 23:00 Intake Total 326 ml 35 ml Output Total 650 ml 900 ml 20 ml Balance -324 ml -865 ml -20 ml Intake Oral 240 ml IV Total 86 ml 35 ml Output Urine Total 650 ml 900 ml Chest Tube Drainage Total 20 ml Result Diagram: 06/26/16 0417 06/26/16416 Imaging Last Impressions Chest X-Ray 06/26/16 06 Signed Impressions: Service Date/Time: Sunday, June 26, 2016 02:17 - CONCLUSION: Small lateral right pneumothorax despite 2 small caliber thoracostomy tubes. Italo Carrillo Jr., MD Chest Tube Insertion 06/25/16 0000 Signed Impressions: Service Date/Time: Saturday, June 25, 2016 14:56 - CONCLUSION: Uncomplicated chest tube placement as above. Ryan Hillman MD Objective Remarks GENERAL: Elderly male, sitting in bed, NAD, HEENT: Normocephalic, atraumatic. Pupils equally round and reactive. Mucous membranes are moist. NECK: Trachea is midline. JVD unable to assess secondary to obesity CHEST: Scant expiratory wheezes. Significant decreased breath sounds on the right. There is a small pigtail chest tube which exits the right chest about the fifth intercostal space. Second chest tube at upper right of chest. Tender to palpation. CARDIOVASCULAR: Irregularly irregular rhythm. ABDOMEN: Obese, soft, nontender, nondistended. No guarding. MUSCULOSKELETAL: 1+ peripheral edema. Distal pulses 2+. NEUROLOGICAL: Follows commands all 4 extremity. PSYCH: Mood and affect appropriate. Medications and IVs Current Medications Medications (Trade) Dose Ordered Sig/Shola Route Start Time Stop Time Status Last Admin (NS Flush) 2 ml UNSCH PRN FLUSH 06/24/16 20:15 (NS Flush) 2 ml BID FLUSH 06/24/16 21:00 06/26/16 08:12 (Narcan Inj) 0.4 mg UNSCH PRN IV 06/24/16 20:15 (Cardizem Cd) 180 mg DAILY PO 06/25/16 09:00 06/26/16 08:11 (Lasix) 40 mg DAILY PO 06/25/16 09:00 06/26/16 08:11 (Mag-Ox) 400 mg DAILY PO 06/25/16 09:00 06/26/16 08:11 (KCl) 20 meq DAILY PO 06/25/16 09:00 06/26/16 08:11 (Deltasone) 5 mg DAILY PO 06/25/16 09:00 06/26/16 08:11 (Xarelto) 20 mg DAILY PO 06/25/16 09:00 06/26/16 09:00 (Flomax) 0.4 mg HS PO 06/25/16 21:00 06/25/16 21:00 (Pravachol) 80 mg HS PO 06/25/16 21:00 06/25/16 21:00 (NS Flush) 2 ml UNSCH PRN IVF 06/25/16 13:00 A/P Assessment and Plan Pneumothorax Spontaneous pneumothorax initially decompressed with a right-sided pectoral chest tube but repeat CXR revealed recurrence. Interventional radiology placed a second anterior pigtail chest tube to relieve the pneumothorax. CXR AM 06/26 revealed: Small lateral right pneumothorax despite 2 small caliber thoracostomy tubes. - Discussed with IR, plan on upsizing chest tube 06/26. - repeat CXR in AM. - oxygen and nebs as needed. - chest tubes to suction. Atrial fibrillation with rapid ventricular response S/t respiratory distress. Resolved after diltiazem infusion given. - continue PO diltiazem. - telemetry. Anemia/ thrombocytopenia The pt has a history of cancer. Counts are similar to baseline. - continue to monitor. Hyperglycemia The pt is on prednisone as an outpt. - insulin sliding scale. - check HgbA1c. PPx: Xarelto. Discharge Planning Transfer to the floor. Lavelle Sadler DO Jun 26, 2016 12:52
[2016-06-26] MEDS ORDERED: fentaNYL CITRATE 250 MCG/5 ML AMP ONE (14:51)
--- NOTE | 2016-06-26 16:39 | RADRPT ---
EXAM DATE/TIME: 06/26/2016 14:41 [facility] COMPARISON: No previous studies available for comparison. INDICATIONS : Patient is in need of an exchange of existing chest tube due to recurrent pneumothorax. MEDICAL HISTORY : History of right sided tension pneumothorax, emphysema, bilateral lung cancer, HTN, DM, AFIB with RVR , colon cancer, chronic kidney disease, anemia, thrombocytopenia, left ureteral stricture. SURGICAL HISTORY : History of port placement, chest tube placement, partial colon resection, left lower lobe removal, he rnia repair, ureteral stent placement amd removal, cystoscopy with balloon dilatation. ENCOUNTER: Subsequent ACUITY: 1 day PAIN SCORE: 0/10 FLUORO TIME: 10.4 minutes SEDATION TIME: 40 minutes MEDICATION(S): 1.) 250 mcg fentanyl (Sublimaze) IV DEVICE(S): 1.) 18 Bahamian non-locking catheter BS Expel Large Capacity Drainage Catheter PROCEDURE : 1. Fluoroscopically guided chest tube exchange. 2. Conscious sedation with continuous EKG and oximetry monitoring. The risks, benefits and alternatives to the procedure were explained and verbal and written consent w as obtained. The site was prepped in sterile fashion. Full sterile technique was used, including ca p, mask, sterile gloves and gown and a large sterile sheet. Hand hygiene and 2% chlorhexidine and/or betadine/alcohol prep was utilized per protocol for cutaneous antisepsis. The skin and subcutaneous tissues were infiltrated with local anesthetic solution. With fluoroscopic guidance the previously placed chest tube was exchanged for the prescribed catheter . Post procedure imaging demonstrates satisfactory position of the tube. The catheter was sutured i n place and a Percu-Stay was applied. Conscious sedation was performed with the prescribed dosages and duration as above. The patient kanu ated the procedure well and there were no complications. EKG and oximetry remained stable throughout the procedure. The patient was sent to post anesthesia recovery in stable condition. CONCLUSION: Uncomplicated chest tube exchange as above. Ryan Hillman MD on June 26, 2016 at 16:36 Board Certified Radiologist. This report was verified electronically.
[2016-06-26 16:44] LABS: HEMOGLOBIN A1a 2.7 %; HEMOGLOBIN A1b 0.9 %; HEMOGLOBIN Ao 82.5 %; HEMOGLOBIN F 1.5 %; HEMOGLOBIN LA1C 1.9 %; HEMOGLOBIN P3 3.8 %
--- NOTE | 2016-06-26 18:14 | PD.RAD ---
Post Procedure Progress Note Pre Procedure Diagnosis: (1) Pneumothorax Post Procedure Diagnosis: (1) Pneumothorax Procedure Date: Jun 26, 2016 Supervising Radiologist: Ryan Hillman Proceduralist/Assist: RT Jose(R)(CV) Anesthesia: Local, Conscious Sedation Plan of Activity Patient to Unit: Critical Care Patient Condition: Good See PACS Report for procedural detail/treatment Drainage Procedure Procedure 1 Imaging Guidance: Fluoroscopy Side: Right Procedure Type: Chest Tube Non-Tunneled Procedure: Exchange Burkinan: 18 Drainage: Pleurovac Ryan Hillman MD Jun 26, 2016 18:14
--- NOTE | 2016-06-26 18:49 | HHI.PR ---
Subjective Remarks 70 YOWM with COPD,PTX, s/p Chest tube had chest tube replaced today Breathing much better Weaned to NC Mild CP Chest tube with air leak Objective Vital Signs Vital Signs Date Time Temp Pulse Resp B/P Pulse Ox O2 Delivery O2 Flow Rate FiO2 06/26/16 12:00 88 06/26/16 12:00 98.0 88 20 108/66 92 06/26/16 10:00 90 06/26/16 08:44 96 Nasal Cannula 2.00 06/26/16 08:00 97.8 68 20 108/70 96 06/26/16 08:00 61 06/26/16 07:00 96 Nasal Cannula 3.00 06/26/16 06:00 70 06/26/16 04:00 64 06/26/16 04:00 64 17 101/55 95 06/26/16 03:53 93 Nasal Cannula 4.00 06/26/16 02:00 70 06/26/16 00:00 98.0 68 18 105/63 92 06/26/16 00:00 68 06/25/16 22:00 78 06/25/16 21:07 Venturi Mask 6.00 35 06/25/16 21:00 Venturi Mask 35 06/25/16 20:00 78 06/25/16 20:00 97.9 78 35 104/74 100 I/O 06/25/16 06/25/16 06/25/16 06/26/16 06/26/16 06/26/16 07:00 15:00 23:00 07:00 15:00 23:00 Intake Total 326 ml 35 ml 720 ml Output Total 650 ml 900 ml 1245 ml Balance -324 ml -865 ml -525 ml Intake Oral 240 ml 720 ml IV Total 86 ml 35 ml 0 ml Output Urine Total 650 ml 900 ml 1225 ml Chest Tube Drainage Total 20 ml # Bowel Movements 0 Result Diagram: 06/26/1641606/26/16416 Objective Remarks GENERAL: WBWN WM, NAD SKIN: Warm and dry. HEAD: Normocephalic. EYES: No scleral icterus. No injection or drainage. NECK: Supple, trachea midline. No JVD or lymphadenopathy. CARDIOVASCULAR: Regular rate and rhythm without murmurs, gallops, or rubs. RESPIRATORY: Breath sounds equal bilaterally. No accessory muscle use. Two right chest tubes, has air leak GASTROINTESTINAL: Abdomen soft, non-tender, nondistended. MUSCULOSKELETAL: No cyanosis, or edema. BACK: Nontender without obvious deformity. No CVA tenderness. A/P Assessment and Plan Right PTX, s/p chest tubes COPD HTN AF Ca lung and Colon PLAN: Chest tubes to suction Supplement 02 Cont Xarelto Pred 5 mg daily Dw pt and his . Jasen Zacarias MD Jun 26, 2016 18:49
[2016-06-26] MEDS: INSULIN ASPART SUPPLEMENTAL SCALE SQ SCH (21:00)
[2016-06-27] VITALS (12 sets, daily range): BP systolic 110–130; BP diastolic 63–78; PULSE 61–96; RESP 16–20; TEMP 97.8–99.3; O2SAT 92–95
[2016-06-27] MEDS: TAMSULOSIN HCL 0.4 MG CAP PO SCH ×2 (00:04→20:38)
[2016-06-27] MEDS: PRAVASTATIN SOD 80 MG TAB PO SCH ×2 (00:05→20:39)
[2016-06-27] MEDS: SODIUM CHLORIDE 0.9% FLUSH 5 ML FLUSH FLUSH SCH ×3 (00:13→20:39)
[2016-06-27] MEDS: RESP: ALBUTEROL 2.5 MG/IPRATROPIUM 0.5 MG NEB (PRN) NEB (00:44)
[2016-06-27] MEDS: RESP: ALBUTEROL 2.5 MG/IPRATROPIUM 0.5 MG NEB (SCH) NEB ×4 (04:32→22:03)
[2016-06-27] MEDS: INSULIN ASPART SUPPLEMENTAL SCALE SQ SCH ×4 (06:06→20:41)
--- NOTE | 2016-06-27 07:42 | RADRPT ---
EXAM DATE/TIME: 06/27/2016 06:32 [facility] COMPARISON: No previous studies available for comparison. INDICATIONS : Short of breath, coughing, evaluate pneumothorax MEDICAL HISTORY : Carcinoma, colon. Carcinoma, lung. Chronic obstructive pulmonary disease. SURGICAL HISTORY : chest tubes on right side ENCOUNTER: Subsequent ACUITY: 4 - 6 days PAIN SCORE: 0/10 LOCATION: Right chest FINDINGS: A single frontal expiratory view of the chest was performed. The lungs are symmetrically aerated and clear. 2 pigtail catheters identified within the right chest. The upper pigtail is slightly larger than on the previous film. There may be a miniscule amount of residual air at the right lung apex but markedly improved since the previous days film. Mediastinal structures are in the midline. The cardio-mediastinal contours and bronchopulmonary markings are unremarkable for an expiratory exam . Left-sided rib deformities are stable. CONCLUSION: 2 chest tubes noted on the right side. Marked improvement in the pneumothorax on the right with a haja y questionable pleural line the right lung apex clearly smaller than on the previous day study Gray Bernardo MD on June 27, 2016 at 7:39 Board Certified Radiologist. This report was verified electronically.
[2016-06-27] MEDS: POTASSIUM CHLORIDE 20 MEQ CONTROLLED RELEASE TAB PO SCH (09:36)
[2016-06-27] MEDS: predniSONE 5 MG TAB PO SCH (09:36)
[2016-06-27] MEDS: RIVAROXABAN 20 MG TAB PO SCH (09:36)
[2016-06-27] MEDS: MAGNESIUM OXIDE 400 MG TAB PO SCH (09:36)
[2016-06-27] MEDS: DILTIAZEM-CD 180 MG CAP ER PO SCH (09:36)
[2016-06-27] MEDS: FUROSEMIDE 40 MG TAB PO SCH (09:36)
--- NOTE | 2016-06-27 11:11 | HHI.PR ---
Subjective Remarks The pt mentioned that he hasn't ambulated. He is also constipated. He says his breathing is better. Discussed with nursing. Objective Vitals Vital Signs Date Time Temp Pulse Resp B/P Pulse Ox O2 Delivery O2 Flow Rate FiO2 06/27/16 09:14 95 Nasal Cannula 2.00 06/27/16 08:00 98.9 87 18 130/78 94 06/27/16 04:35 94 Nasal Cannula 2.00 06/27/16 04:00 99.3 85 20 122/74 93 06/27/16 00:50 92 Nasal Cannula 2.00 06/27/16 00:00 97.8 61 20 126/63 94 06/27/16 00:00 97.8 61 20 126/63 94 06/26/16 23:30 Nasal Cannula 2.00 06/26/16 20:00 97.8 84 20 110/75 94 06/26/16 19:21 92 Nasal Cannula 2.00 06/26/16 18:00 91 06/26/16 14:00 97.5 86 17 116/68 92 06/26/16 12:00 88 06/26/16 12:00 98.0 88 20 108/66 92 I/O 06/26/16 06/26/16 06/26/16 06/27/16 06/27/16 06/27/16 06:59 14:59 22:59 06:59 14:59 22:59 Intake Total 755 ml 240 ml 240 ml Output Total 2145 ml 350 ml 300 ml Balance -1390 ml -110 ml -60 ml Intake Oral 720 ml 240 ml 240 ml IV Total 35 ml Output Urine Total 2125 ml 350 ml 300 ml Chest Tube Drainage Total 20 ml # Voids 0 # Bowel Movements 0 0 0 Result Diagram: 06/26/167 06/26/16 0417 Imaging Last Impressions Chest X-Ray 06/27/16 0600 Signed Impressions: Service Date/Time: June 06:32 - CONCLUSION: 2 chest tubes noted on the right side. Marked improvement in the pneumothorax on the right with a very questionable pleural line the right lung apex clearly smaller than on the previous day study Gray Bernardo MD Chest Tube Change 06/26/16 0000 Signed Impressions: Service Date/Time: Sunday, June 26, 2016 14:41 - CONCLUSION: Uncomplicated chest tube exchange as above. Ryan Hillman MD Chest Tube Insertion 06/25/16 0000 Signed Impressions: Service Date/Time: Saturday, June 25, 2016 14:56 - CONCLUSION: Uncomplicated chest tube placement as above. Ryan Hillman MD Objective Remarks GENERAL: Elderly male, sitting in bed, NAD. HEENT: Normocephalic, atraumatic. Pupils equally round and reactive. Mucous membranes are moist. NECK: Trachea is midline. JVD unable to assess secondary to obesity CHEST: Scant expiratory wheezes. Significant decreased breath sounds on the right. There is a small pigtail chest tube which exits the right chest about the fifth intercostal space. Second chest tube at upper right of chest. Tender to palpation. CARDIOVASCULAR: Irregularly irregular rhythm. ABDOMEN: Obese, soft, nontender, nondistended. No guarding. MUSCULOSKELETAL: 1+ peripheral edema. Distal pulses 2+. NEUROLOGICAL: Follows commands all 4 extremity. PSYCH: Mood and affect appropriate. Medications and IVs Current Medications Medications (Trade) Dose Ordered Sig/Shola Route Start Time Stop Time Status Last Admin (NS Flush) 2 ml UNSCH PRN FLUSH 06/24/16 20:15 (NS Flush) 2 ml BID FLUSH 06/24/16 21:00 06/27/16 09:36 (Narcan Inj) 0.4 mg UNSCH PRN IV 06/24/16 20:15 (Cardizem Cd) 180 mg DAILY PO 06/25/16 09:00 06/27/16 09:36 (Lasix) 40 mg DAILY PO 06/25/16 09:00 06/27/16 09:36 (Mag-Ox) 400 mg DAILY PO 06/25/16 09:00 06/27/16 09:36 (KCl) 20 meq DAILY PO 06/25/16 09:00 06/27/16 09:36 (Deltasone) 5 mg DAILY PO 06/25/16 09:00 06/27/16 09:36 (Xarelto) 20 mg DAILY PO 06/25/16 09:00 06/27/16 09:36 (Flomax) 0.4 mg HS PO 06/25/16 21:00 06/27/16 00:04 (Pravachol) 80 mg HS PO 06/25/16 21:00 06/27/16 00:05 (NS Flush) 2 ml UNSCH PRN IVF 06/25/16 13:00 A/P Assessment and Plan Pneumothorax Spontaneous pneumothorax initially decompressed with a right-sided pectoral chest tube but repeat CXR revealed recurrence. Interventional radiology placed a second anterior pigtail chest tube to relieve the pneumothorax. CXR AM 06/26 revealed: Small lateral right pneumothorax despite 2 small caliber thoracostomy tubes. S/p upsizing of chest tube 06/26. CXR 06/27 improved. - oxygen and nebs as needed. - chest tubes to suction. - follow up with pulmonology. - physical therapy. Atrial fibrillation with rapid ventricular response S/t respiratory distress. Resolved after diltiazem infusion given. - continue PO diltiazem. - telemetry. Anemia/ thrombocytopenia The pt has a history of cancer. Counts are similar to baseline. - continue to monitor. Hyperglycemia The pt is on prednisone as an outpt. A1c is 6.4%. - insulin sliding scale. - lifestyle modifications. Constipation The pt has some abdominal discomfort. +BS. - bowel regimen started. PPx: Xarelto. Discharge Planning Awaiting clinical improvement. Lavelle Sadler DO Jun 27, 2016 11:11
[2016-06-27] MEDS ORDERED: POLYETHYLENE GLYCOL 17 GM PKG PO ONE (12:00)
[2016-06-27] MEDS: DOCUSATE SODIUM 100 MG CAP PO SCH ×2 (12:04→20:38)
[2016-06-27] MEDS: SENNOSIDES 8.6 MG TAB PO SCH (12:04)
--- NOTE | 2016-06-27 17:08 | RADRPT ---
EXAM DATE/TIME: 06/27/2016 16:31 [facility] COMPARISON: CHEST EXPIRATION ONLY, June 27, 2016, 6:32. INDICATIONS : Pneumothorax. MEDICAL HISTORY : None. SURGICAL HISTORY : None. Chest tube placement. ENCOUNTER: Initial ACUITY: 4 - 6 days PAIN SCORE: 0/10 LOCATION: Right chest FINDINGS: Right thoracostomy tubes remain in place. I see no residual pneumothorax. There is minimal parenchyma l opacity at the right lung base and minimal residual subcutaneous emphysema. Vague left chest densit y is stable. Cardiomediastinal contours are stable. CONCLUSION: No residual pneumothorax. Ryan Hillman MD on June 27, 2016 at 16:56 Board Certified Radiologist. This report was verified electronically.
--- NOTE | 2016-06-27 19:22 | HHI.PR ---
Subjective Remarks 70 YOWM with COPD,PTX, s/p Chest tube Breathing much better Weaned to NC Mild CP Chest tube with air leak Desaturated when 02 was removed briefly. Objective Vital Signs Vital Signs Date Time Temp Pulse Resp B/P Pulse Ox O2 Delivery O2 Flow Rate FiO2 06/27/16 14:00 98.1 72 17 113/70 94 06/27/16 12:00 98.4 84 16 116/74 94 06/27/16 09:14 95 Nasal Cannula 2.00 06/27/16 08:00 98.9 87 18 130/78 94 06/27/16 04:35 94 Nasal Cannula 2.00 06/27/16 04:00 99.3 85 20 122/74 93 06/27/16 00:50 92 Nasal Cannula 2.00 06/27/16 00:00 97.8 61 20 126/63 94 06/27/16 00:00 97.8 61 20 126/63 94 06/26/16 23:30 Nasal Cannula 2.00 06/26/16 20:00 97.8 84 20 110/75 94 I/O 06/26/16 06/26/16 06/26/16 06/27/16 06/27/16 06/27/16 06:59 14:59 22:59 06:59 14:59 22:59 Intake Total 755 ml 240 ml 240 ml 700 ml Output Total 2145 ml 350 ml 300 ml Balance -1390 ml -110 ml -60 ml 700 ml Intake Oral 720 ml 240 ml 240 ml 700 ml IV Total 35 ml Output Urine Total 2125 ml 350 ml 300 ml Chest Tube Drainage Total 20 ml # Voids 0 3 # Bowel Movements 0 0 0 0 Result Diagram: 06/26/1641606/26/16416 Objective Remarks GENERAL: WBWN WM, NAD SKIN: Warm and dry. HEAD: Normocephalic. EYES: No scleral icterus. No injection or drainage. NECK: Supple, trachea midline. No JVD or lymphadenopathy. CARDIOVASCULAR: Regular rate and rhythm without murmurs, gallops, or rubs. RESPIRATORY: Breath sounds equal bilaterally. No accessory muscle use. Two right chest tubes, has air leak GASTROINTESTINAL: Abdomen soft, non-tender, nondistended. MUSCULOSKELETAL: No cyanosis, or edema. BACK: Nontender without obvious deformity. No CVA tenderness. A/P Assessment and Plan Right PTX, s/p chest tubes COPD HTN AF Ca lung and Colon PLAN: Chest tubes to suction Supplement 02 Cont Xarelto Pred 5 mg daily CXR in AM Jasen Zacarias MD Jun 27, 2016 19:22
[2016-06-28] VITALS (12 sets, daily range): BP systolic 99–137; BP diastolic 68–78; PULSE 59–104; RESP 17–20; TEMP 97.5–99.4; O2SAT 92–100
[2016-06-28] MEDS: RESP: ALBUTEROL 2.5 MG/IPRATROPIUM 0.5 MG NEB (SCH) NEB ×4 (04:26→19:38)
[2016-06-28] MEDS: INSULIN ASPART SUPPLEMENTAL SCALE SQ SCH ×4 (06:48→21:25)
--- NOTE | 2016-06-28 08:22 | RADRPT ---
EXAM DATE/TIME: 06/28/2016 07:59 [facility] COMPARISON: CHEST SINGLE AP, June 25, 2016, 12:18. CHEST EXPIRATION ONLY, June 27, 2016, 6:32. INDICATIONS: Pneumothorax. Short of breath. MEDICAL HISTORY: History of right sided tension pneumothorax, emphysema, bilateral lung cancer, SURGICAL HISTORY: History of port placement, chest tube placement, partial colon resection, left ENCOUNTER: Subsequent ACUITY: 2 days PAIN SCORE: 0/10 LOCATION: Right chest FINDINGS: Large bore chest tube is in place on the right without pneumothorax. Minimal subcutaneous emphysema i s present. Second small bore chest tube is in the right base. Minimal parenchymal changes are seen on the left. CONCLUSION: Chest tubes in good position without pneumothorax. Thomas Dorsey MD FACR on June 28, 2016 at 8:15 Board Certified Radiologist. This report was verified electronically.
[2016-06-28] MEDS: RIVAROXABAN 20 MG TAB PO SCH (08:54)
[2016-06-28] MEDS: MAGNESIUM OXIDE 400 MG TAB PO SCH (08:55)
[2016-06-28] MEDS: DILTIAZEM-CD 180 MG CAP ER PO SCH (08:55)
[2016-06-28] MEDS: FUROSEMIDE 40 MG TAB PO SCH (08:55)
[2016-06-28] MEDS: predniSONE 5 MG TAB PO SCH (08:55)
[2016-06-28] MEDS: DOCUSATE SODIUM 100 MG CAP PO SCH (08:55)
[2016-06-28] MEDS: POTASSIUM CHLORIDE 20 MEQ CONTROLLED RELEASE TAB PO SCH (08:55)
[2016-06-28] MEDS: SENNOSIDES 8.6 MG TAB PO SCH (08:55)
[2016-06-28] MEDS: SODIUM CHLORIDE 0.9% FLUSH 5 ML FLUSH FLUSH SCH ×2 (08:55→21:23)
[2016-06-28] MEDS ORDERED: LACTULOSE SYRUP 20 GM/30 ML CUP PO SCH (11:15)
[2016-06-28] MEDS ORDERED: POLYETHYLENE GLYCOL 17 GM PKG PO SCH (11:15)
[2016-06-28] MEDS ORDERED: BISACODYL 10 MG SUPP RECTAL ONE (11:15)
--- NOTE | 2016-06-28 11:15 | HHI.PR ---
Subjective Remarks The patient was resting comfortably. He said that he still has not had a bowel movement. He did complain of some congestion. He also had some pain at the site of the top chest tube. He said that he felt weak and would be agreeable with going to rehabilitation when stable for discharge. Discussed with nursing. Objective Vitals Vital Signs Date Time Temp Pulse Resp B/P Pulse Ox O2 Delivery O2 Flow Rate FiO2 06/28/16 09:57 97 Nasal Cannula 2.00 06/28/16 09:57 97 Nasal Cannula 2.00 06/28/16 09:04 Nasal Cannula 6.00 06/28/16 08:32 97.8 90 20 118/68 92 06/28/16 04:00 97.5 59 20 99/69 94 06/28/16 00:00 98.2 78 18 114/78 93 06/28/16 00:00 98.2 78 18 114/78 93 06/27/16 22:05 95 Nasal Cannula 2.00 06/27/16 20:45 Nasal Cannula 2.00 06/27/16 20:00 98.6 89 18 110/76 92 06/27/16 18:00 95 06/27/16 14:00 98.1 72 17 113/70 94 06/27/16 12:00 98.4 84 16 116/74 94 I/O 06/27/16 06/27/16 06/27/16 06/28/16 06/28/16 06/28/16 07:00 15:00 23:00 07:00 15:00 23:00 Intake Total 240 ml 700 ml 750 ml Output Total 300 ml 220 ml 40 ml 20 ml Balance -60 ml -220 ml 660 ml 730 ml Intake Oral 240 ml 700 ml 750 ml Output Urine Total 300 ml 220 ml Chest Tube Drainage Total 40 ml 20 ml # Voids 3 2 # Bowel Movements 0 0 Result Diagram: 06/26/1641606/26/16416 Imaging Last Impressions Chest X-Ray 06/27/16 0600 Signed Impressions: Service Date/Time: June 06:32 - CONCLUSION: 2 chest tubes noted on the right side. Marked improvement in the pneumothorax on the right with a very questionable pleural line the right lung apex clearly smaller than on the previous day study Gray Bernardo MD Chest Tube Change 06/26/16 0000 Signed Impressions: Service Date/Time: Sunday, June 26, 2016 14:41 - CONCLUSION: Uncomplicated chest tube exchange as above. Ryan Hillman MD Chest Tube Insertion 06/25/16 0000 Signed Impressions: Service Date/Time: Saturday, June 25, 2016 14:56 - CONCLUSION: Uncomplicated chest tube placement as above. Ryan Hillman MD Objective Remarks GENERAL: Elderly male, sitting in bed, NAD. HEENT: Normocephalic, atraumatic. Pupils equally round and reactive. Mucous membranes are moist. NECK: Trachea is midline. JVD unable to assess secondary to obesity CHEST: Scant expiratory wheezes. Significant decreased breath sounds on the right. There is a small pigtail chest tube which exits the right chest about the fifth intercostal space. Second chest tube at upper right of chest. Tender to palpation. CARDIOVASCULAR: Irregularly irregular rhythm. ABDOMEN: Obese, soft, nontender, nondistended. No guarding. MUSCULOSKELETAL: 1+ peripheral edema. Distal pulses 2+. NEUROLOGICAL: Follows commands all 4 extremity. PSYCH: Mood and affect appropriate. Procedures Chest tube placement. Medications and IVs Current Medications Medications (Trade) Dose Ordered Sig/Shola Route Start Time Stop Time Status Last Admin (NS Flush) 2 ml UNSCH PRN FLUSH 06/24/16 20:15 (NS Flush) 2 ml BID FLUSH 06/24/16 21:00 06/28/16 08:55 (Narcan Inj) 0.4 mg UNSCH PRN IV 06/24/16 20:15 (Cardizem Cd) 180 mg DAILY PO 06/25/16 09:00 06/28/16 08:55 (Lasix) 40 mg DAILY PO 06/25/16 09:00 06/28/16 08:55 (Mag-Ox) 400 mg DAILY PO 06/25/16 09:00 06/28/16 08:55 (KCl) 20 meq DAILY PO 06/25/16 09:00 06/28/16 08:55 (Deltasone) 5 mg DAILY PO 06/25/16 09:00 06/28/16 08:55 (Xarelto) 20 mg DAILY PO 06/25/16 09:00 06/28/16 08:54 (Flomax) 0.4 mg HS PO 06/25/16 21:00 06/27/16 20:38 (Pravachol) 80 mg HS PO 06/25/16 21:00 06/27/16 20:39 (NS Flush) 2 ml UNSCH PRN IVF 06/25/16 13:00 (Colace) 100 mg BID PO 06/27/16 12:00 06/28/16 08:55 (Senokot) 17.2 mg DAILY PO 06/27/16 12:00 06/28/16 08:55 (Lactulose Liq) 30 ml DAILY PO 06/28/16 11:15 (Miralax) 17 gm DAILY PO 06/28/16 11:15 UNV (Dulcolax Supp) 10 mg ONCE ONCE RECTAL 06/28/16 11:15 06/28/16 11:16 (Roxicodone) 5 mg Q4H PRN PO 06/28/16 11:15 UNV (Roxicodone) 10 mg Q4H PRN PO 06/28/16 11:15 UNV A/P Assessment and Plan Pneumothorax Spontaneous pneumothorax initially decompressed with a right-sided pectoral chest tube but repeat CXR revealed recurrence. Interventional radiology placed a second anterior pigtail chest tube to relieve the pneumothorax. CXR AM 06/26 revealed: Small lateral right pneumothorax despite 2 small caliber thoracostomy tubes. S/p upsizing of chest tube 06/26. CXR 06/27 improved. Chest tubes on water seal 06/28. - oxygen and nebs as needed. - chest tubes to water seal. - follow up CXR this afternoon. Remove CT per IR. - follow up with pulmonology. - physical therapy. - pain control. - sputum culture and gram stain. - start guaifenesin. Atrial fibrillation with rapid ventricular response S/t respiratory distress. Resolved after diltiazem infusion given. - continue PO diltiazem. - telemetry. Anemia/ thrombocytopenia The pt has a history of cancer. Counts are similar to baseline. - continue to monitor. Hyperglycemia The pt is on prednisone as an outpt. A1c is 6.4%. - insulin sliding scale. - lifestyle modifications. Constipation The pt has some abdominal discomfort. +BS. - bowel regimen started. Suppository if necessary. PPx: Xarelto. Discharge Planning Awaiting clinical improvement. Lavelle Sadler DO Jun 28, 2016 11:15
[2016-06-28] MEDS: guaiFENesin E.R. 600 MG TAB PO SCH ×2 (12:07→21:23)
--- NOTE | 2016-06-28 13:34 | RADRPT ---
EXAM DATE/TIME: 06/28/2016 12:52 [facility] COMPARISON: CHEST EXPIRATION ONLY, June 28, 2016, 7:59. INDICATIONS : Evaluate chest tube, heart and lungs. MEDICAL HISTORY : Carcinoma, lung. Emphysema. Pneumothorax SURGICAL HISTORY : Chest tube, port. ENCOUNTER: Subsequent ACUITY: 3 days PAIN SCORE: 4/10 LOCATION: Right chest FINDINGS: Right-sided pigtail thoracostomy tubes remain in place. There is no evidence of pneumothorax. Diminis hed aeration in the bases is exacerbated by expiratory technique the mediastinal configuration is em ssly stable accounting for differences in projection. CONCLUSION: No pneumothorax Ryan Hillman MD on June 28, 2016 at 13:24 Board Certified Radiologist. This report was verified electronically.
[2016-06-28] MEDS ORDERED: PILL SPLITTER OTHER PRN (15:15)
--- NOTE | 2016-06-28 15:34 | RADRPT ---
EXAM DATE/TIME: 06/28/2016 15:24 [facility] COMPARISON: CHEST SINGLE AP, June 28, 2016, 12:52. INDICATIONS : Status post chest tube removal. MEDICAL HISTORY : History of right sided tension pneumothorax, emphysema, bilateral lung. SURGICAL HISTORY : History of port placement, chest tube placement, partial colon resection, left. ENCOUNTER: Subsequent ACUITY: 1 day PAIN SCORE: 0/10 LOCATION: chest FINDINGS: There is been removal of both chest tubes from the right. No residual pneumothorax is seen. There are chronic interstitial changes throughout both lungs. The heart is normal in size. The bony s tructures demonstrate old, healed rib fractures on the left. CONCLUSION: 1. No pneumothorax identified following chest tube removal. Aron Dorsey MD on June 28, 2016 at 15:32 Board Certified Radiologist. This report was verified electronically.
--- NOTE | 2016-06-28 17:24 | RADRPT ---
EXAM DATE/TIME: 06/28/2016 00:00 [facility] COMPARISON: No previous studies available for comparison. INDICATIONS : Pneumothorax DEVICE(S): 1.) Vaseline occlusive dressing PROCEDURE : Chest tube removal x2, right chest. Using aseptic technique the previously placed chest tubes were easily removed in one piece and Vaseli ne gauze and sterile dressing was applied. Chest radiograph is to be obtained. CONCLUSION: Uncomplicated chest tube removal. Ryan Hillman MD on June 28, 2016 at 17:11 Board Certified Radiologist. This report was verified electronically.
[2016-06-28] MEDS: SOD PHOSPHATE/SOD BIPHOSPHATE (ADULT) ENEMA 133ML PR ONE ×2 (17:30→21:25)
[2016-06-28] MEDS: ALPRAZolam 0.25 MG TAB PO PRN (17:36)
[2016-06-28] MEDS ORDERED: ETOMIDATE 20 MG/10 ML VIAL ONE (18:04)
[2016-06-28] MEDS ORDERED: SUCCINYLCHOLINE CHLORIDE 200 MG/10 ML VIAL ONE (18:05)
[2016-06-28] MEDS ORDERED: MIDAZOLAM HCL 5 MG/ML VIAL (1 ML) ONE (18:15)
[2016-06-28] MEDS ORDERED: LIDOCAINE 2%/EPINEPHrine 1:100,000 30ML MDV ONE (18:16)
[2016-06-28] MEDS ORDERED: DILTIAZEM HCL 25 MG/5 ML VIAL ONE (18:37)
--- NOTE | 2016-06-28 18:42 | HHI.PR ---
Subjective Remarks 70 YOWM with COPD,PTX, s/p Chest tube Breathing much better Weaned to NC Mild CP Chest tube wasremoved Developed PTX, hypoxia tr to IDC put kem tube with improvement in oxygenation Objective Vital Signs Vital Signs Date Time Temp Pulse Resp B/P Pulse Ox O2 Delivery O2 Flow Rate FiO2 06/28/16 18:00 100 15.00 100 06/28/16 17:14 99.4 89 20 113/74 94 06/28/16 15:14 94 Nasal Cannula 2.00 06/28/16 15:14 94 Nasal Cannula 2.00 06/28/16 13:13 98.1 80 20 109/76 93 06/28/16 09:57 97 Nasal Cannula 2.00 06/28/16 09:57 97 Nasal Cannula 2.00 06/28/16 09:04 Nasal Cannula 6.00 06/28/16 08:32 97.8 90 20 118/68 92 06/28/16 04:00 97.5 59 20 99/69 94 06/28/16 00:00 98.2 78 18 114/78 93 06/28/16 00:00 98.2 78 18 114/78 93 06/27/16 22:05 95 Nasal Cannula 2.00 06/27/16 20:45 Nasal Cannula 2.00 06/27/16 20:00 98.6 89 18 110/76 92 I/O 06/27/16 06/27/16 06/27/16 06/28/16 06/28/16 06/28/16 07:00 15:00 23:00 07:00 15:00 23:00 Intake Total 240 ml 700 ml 750 ml 400 ml Output Total 300 ml 220 ml 40 ml 20 ml Balance -60 ml -220 ml 660 ml 730 ml 400 ml Intake Oral 240 ml 700 ml 750 ml 400 ml Output Urine Total 300 ml 220 ml Chest Tube Drainage Total 40 ml 20 ml # Voids 3 2 # Bowel Movements 0 0 Result Diagram: 06/26/1641606/26/16416 Objective Remarks GENERAL: WBWN WM, NAD SKIN: Warm and dry. HEAD: Normocephalic. EYES: No scleral icterus. No injection or drainage. NECK: Supple, trachea midline. No JVD or lymphadenopathy. CARDIOVASCULAR: Regular rate and rhythm without murmurs, gallops, or rubs. RESPIRATORY: Breath sounds equal bilaterally. No accessory muscle use. Two right chest tubes, has air leak GASTROINTESTINAL: Abdomen soft, non-tender, nondistended. MUSCULOSKELETAL: No cyanosis, or edema. BACK: Nontender without obvious deformity. No CVA tenderness. A/P Assessment and Plan Right PTX, s/p chest tubes COPD HTN AF Ca lung and Colon PLAN: Chest tubes to suction Supplement 02 Cont Xarelto Pred 5 mg daily CXR in AM DW Family at BS DW . Jasen Zacarias MD Jun 28, 2016 18:42
--- NOTE | 2016-06-28 19:27 | RADRPT ---
EXAM DATE/TIME: 06/28/2016 18:56 [facility] COMPARISON: No previous studies available for comparison. INDICATIONS : Post right chest tube placement MEDICAL HISTORY : Right sided tension pneumothorax, emphysema, bilateral lung. SURGICAL HISTORY : Port placement, chest tube placement, partial colon resection, left. ENCOUNTER: Subsequent ACUITY: 1 day PAIN SCORE: 0/10 LOCATION: Right chest FINDINGS: A single view of the chest demonstrates right chest tube without significant pneumothorax. Subcutaneo us air the right chest wall. Multiple remote left rib fractures. Mild basilar dependent opacity most characteristic of atelectasis. Mild cardiomegaly. CONCLUSION: 1. Right chest tube without significant pneumothorax. Subcutaneous air right chest wall. Remote left sided rib fractures. Aamir Johnson MD on June 28, 2016 at 19:23 Board Certified Radiologist. This report was verified electronically.
--- NOTE | 2016-06-28 20:11 | PD.PROCEDR ---
Procedure Note Procedure Tube Thoracostomy Procedure Note Right sided 28 Tamazight chest tube Diagnosis: Recurrent spontaneous pneumothorax with tension physiology Indications: Current right-sided spontaneous pneumothorax Consent: Consent is deemed emergent or medically necessary. Anesthesia: Versed 2 mg IV, fentanyl 100 g IV, 1% lidocaine locally Description of the Procedure: The patient was placed in the supine position. The arm was abducted above the head and secured. The right lateral chest was prepped and draped sterilely to include the axilla and nipple. 1% Lidcaine was infiltrated subcutaneously and into the tissues down to the periosteum of the rib. The 5th intercostal space was identified. A small incision was made using a #11 blade. At the mid-axillary line, blunt dissection was performed until the rib was palpated. A Shanti clamp was used to bluntly enter the pleura immediately above the adjacent rib. The space was opened bluntly with the Shanti clamp. A finger was inserted and lung and pleura were felt. A 28 Fr chest tube was inserted along the course of the finger and into the pleural cavity easily and without resistance. The chest tube was connected to a Pleur-o -vac and connected to [id number] suction. The catheter was sutured to the skin using a 0 silk sandal suture and an occlusive dressing was applied. There were no immediate complications noted. There was minimal EBL. The patient tolerated the procedure well. Chest Tube output: Approximately 40 cc of serosanguineous output. There is an air leak. A Chest x-ray has been ordered. I personally performed the procedure. Abhijeet Warren MD Jun 28, 2016 20:11
--- NOTE | 2016-06-28 20:21 | PD.CONS ---
[facility] Service Critical Care Medicine Consult Requested By Dr. Sadler Reason for Consult acute respiratory distress Primary Care Physician Debbie Mcgee, DO History of Present Illness This patient is a 70-year-old male well-known to me who originally presented to the emergency department with right-sided spontaneous pneumothorax. At that time I was consult to evaluate the patient for recurrent pneumothorax. At that time, a second chest tube was placed by interventional radiology, and the patient was sent to the ICU for overnight monitoring. At that time he remained stable and was discharged to the floor. I was called emergently to the ICU for a rapid response that was coming from the floor. The rapid response was this gentleman who was in severe respiratory distress of few hours after his 2 chest tubes had been removed. The patient has an SPO2 of 70% and is being assisted with his ventilation with a [id number]. It was very difficult to accurately her breath sounds given the patient's obesity, but he did appear to have nearly absent breath sounds on the right. He is in severe respiratory distress. Emergently, I placed a 14-gauge 1.75 inch Angiocath in the second intercostal space, midclavicular line anteriorly and got a large gush of air. Immediately, the patient's respiratory distress subsided, and his saturations improved to 100%. Due to the patient's obesity and recent pulmonary instability , I decided that the safest possible action at this point was to place a slightly more permanent connection to the pleura. Through the 14-gauge Angiocath, I threaded a J-tipped guidewire into the pleural space, and over this I threaded a 8 Honduran pigtail catheter. This pigtail catheter was connected to a Pleur-evac and maintained at 40 cm water suction. This procedure was not done sterilely, and again was done emergently. This pigtail chest tube had a significant air leak. Given the patient's prior history of a spontaneous hemothorax that did not resolve with a single pigtail chest tube, decision was made to place a formal open thoracostomy tube which would be large bore enough to completely decompress his pneumothorax. At this point, the patient was stable. We raised the arm above the head, and under sterile conditions, I placed a 28 Honduran right-sided chest tube (please see separate procedure note for details). At the end of this, the patient was much more calm and unlabored. The patient is no longer distresses and is hemodynamically stable. Review of Systems ROS Limitations: Clinical Condition Past Family Social History Allergies: Coded Allergies: Contrast Media (Verified Allergy, Severe, Hives, 06/24/16) Past Medical History Atrial fibrillation Lung cancer COPD Past Surgical History Unknown at this time Physical Exam Vital Signs Vital Signs Date Time Temp Pulse Resp B/P Pulse Ox O2 Delivery O2 Flow Rate FiO2 06/28/16 19:43 100 Non-Rebreather 06/28/16 18:00 100 15.00 100 06/28/16 17:14 99.4 89 20 113/74 94 06/28/16 15:14 94 Nasal Cannula 2.00 06/28/16 15:14 94 Nasal Cannula 2.00 06/28/16 13:13 98.1 80 20 109/76 93 06/28/16 09:57 97 Nasal Cannula 2.00 06/28/16 09:57 97 Nasal Cannula 2.00 06/28/16 09:04 Nasal Cannula 6.00 06/28/16 08:32 97.8 90 20 118/68 92 06/28/16 04:00 97.5 59 20 99/69 94 06/28/16 00:00 98.2 78 18 114/78 93 06/28/16 00:00 98.2 78 18 114/78 93 06/27/16 22:05 95 Nasal Cannula 2.00 06/27/16 20:45 Nasal Cannula 2.00 Physical Exam GENERAL: Elderly male, sitting in bed, mild respiratory distress HEENT: Normocephalic, atraumatic. Pupils equally round and reactive. Mucous membranes are moist. NECK: Trachea is midline. JVD unable to assess secondary to obesity CHEST: Mildly tachypneic, mildly labored. Scant expiratory wheezes. Significant decreased breath sounds on the right. There is a small pigtail chest tube which exits the right chest about the fifth intercostal space. There is a significant air leak with this chest tube. Chest tube is to suction. Minimal serosanguineous drainage. CARDIOVASCULAR: Normal rate, irregularly irregular rhythm. Rate is in the 90s on my evaluation. No appreciable murmurs. ABDOMEN: Obese, soft, nontender, nondistended. No guarding. MUSCULOSKELETAL: 1+ peripheral edema. Distal pulses 2+. NEUROLOGICAL: RASS 0. CAM -. Follows commands all 4 extremity. Laboratory Date/Time Procedure Status Source Growth 06/28/16 13:50 Gram Stain Received Sputum Expectorated Sputum Pending 06/28/16 13:50 Sputum Culture Received Sputum Expectorated Sputum Pending Result Diagram: 06/26/16 0417 06/26/16 0417 Assessment and Plan Assessment and Plan Assessment: This is a 70-year-old male with history of COPD and atrial fibrillation who was recently admitted and diagnosed with spontaneous pneumothorax, now recently status post removal of chest tubes, with severe respiratory distress and near respiratory arrest. Clinically, he has recurrent right-sided tension pneumothorax. Active problems: Recurrent right-sided pneumothorax with tension physiology acute hypoxic respiratory failure Atrial fibrillation with rapid ventricular response Plan: Emergent needle thoracostomy, transitioning to emergent anterior percutaneous pigtail thoracostomy Urgent right-sided 28 Honduran tube thoracostomy Stat chest x-ray Keep chest tube to suction Admit the patient to the ICU. Wean oxygen by nasal cannula for goal SPO2 greater than 90% now that his respiratory status stabilized Diltiazem 20 mg IV bolus for atrial fibrillation with RVR. After this we will start patient on Cardizem drip. This note represents the time I spent in evaluation and management of this patient while he was critically ill in near respiratory arrest. I have spent in excess of 35 minutes discontinuously in the care and management of this patient. This time is exclusive of procedures, and includes, but is not limited to, evaluation of the patient, review of the medical record, discussions with family, consultants, nursing staff, or respiratory therapy, and documentation in the medical record. Abhijeet Warren MD Jun 28, 2016 20:21
[2016-06-28] MEDS ORDERED: MAGNESIUM CITRATE SOLN 300 ML BTL PO ONE (21:00)
[2016-06-28] MEDS: DOCUSATE SODIUM 50 MG/SENNA 8.6 MG TAB PO SCH (21:23)
[2016-06-28] MEDS: TAMSULOSIN HCL 0.4 MG CAP PO SCH (21:23)
[2016-06-28] MEDS: POLYETHYLENE GLYCOL 17 GM PKG PO SCH (21:24)
[2016-06-28] MEDS: BISACODYL 10 MG SUPP RECTAL SCH (21:24)
[2016-06-28] MEDS: LACTULOSE SYRUP 20 GM/30 ML CUP PO SCH (21:24)
[2016-06-28] MEDS: PRAVASTATIN SOD 80 MG TAB PO SCH (21:24)
[2016-06-29] VITALS (16 sets, daily range): BP systolic 105–149; BP diastolic 60–80; PULSE 86–146; RESP 19–27; TEMP 98.3–98.6; O2SAT 91–99
[2016-06-29] MEDS: RESP: ALBUTEROL 2.5 MG/IPRATROPIUM 0.5 MG NEB (SCH) NEB ×4 (03:53→16:00)
--- NOTE | 2016-06-29 06:13 | RADRPT ---
EXAM DATE/TIME: 06/29/2016 05:08 [facility] COMPARISON: No previous studies available for comparison. INDICATIONS : Distention. MEDICAL HISTORY : Carcinoma, colon. Hiatal hernia. SURGICAL HISTORY : Colon resection. Colostomy. ENCOUNTER: Initial ACUITY: 1 day PAIN SCORE: Non-responsive. LOCATION: abdomen, all quadrants. FINDINGS: Frontal view of the abdomen demonstrates gas in nondistended loops of small and large bowel. Chest t ube projects over the lower right chest. Anterior abdominal wall anchor screws in place. The osseou s structures are grossly intact. CONCLUSION: No dilated loops of small or large bowel. Italo Hayes MD on June 29, 2016 at 6:11 Board Certified Radiologist. This report was verified electronically.
[2016-06-29] MEDS: INSULIN ASPART SUPPLEMENTAL SCALE SQ SCH ×4 (06:14→20:12)
--- NOTE | 2016-06-29 06:55 | RADRPT ---
EXAM DATE/TIME: 06/29/2016 06:24 [facility] COMPARISON: CHEST SINGLE AP, June 28, 2016, 18:56. INDICATIONS : Shortness of breath. MEDICAL HISTORY : Emphysema. SURGICAL HISTORY : None. ENCOUNTER: Subsequent ACUITY: 4 - 6 days PAIN SCORE: Non-responsive. LOCATION: Bilateral chest FINDINGS: Right chest tube remains projected at the lower right chest. No evidence of pneumothorax. Stable pr ominence to the right hilum and patchy infiltrates in the medial left lower lung. The heart is marsha l size. Both hemidiaphragms are well delineated. Old left rib fractures. CONCLUSION: Stable appearance the chest with fullness in the right hilar region and patchy left lower lung infilt rates. No evidence of pneumothorax. Italo Hayes MD on June 29, 2016 at 6:52 Board Certified Radiologist. This report was verified electronically.
--- NOTE | 2016-06-29 08:18 | HHI.CCPN ---
Subjective Remarks/Hospital Course Hospital Course: This patient is a 70-year-old male well-known to me who originally presented to the emergency department with right-sided spontaneous pneumothorax. At that time I was consult to evaluate the patient for recurrent pneumothorax. At that time, a second chest tube was placed by interventional radiology, and the patient was sent to the ICU for overnight monitoring. At that time he remained stable and was discharged to the floor. I was called emergently to the ICU for a rapid response that was coming from the floor. The rapid response was this gentleman who was in severe respiratory distress of few hours after his 2 chest tubes had been removed. The patient has an SPO2 of 70% and is being assisted with his ventilation with a [id number]. It was very difficult to accurately her breath sounds given the patient's obesity, but he did appear to have nearly absent breath sounds on the right. He is in severe respiratory distress. Emergently, I placed a 14-gauge 1.75 inch Angiocath in the second intercostal space, midclavicular line anteriorly and got a large gush of air. Immediately, the patient's respiratory distress subsided, and his saturations improved to 100%. Due to the patient's obesity and recent pulmonary instability , I decided that the safest possible action at this point was to place a slightly more permanent connection to the pleura. Through the 14-gauge Angiocath, I threaded a J-tipped guidewire into the pleural space, and over this I threaded a 8 Khmer pigtail catheter. This pigtail catheter was connected to a Pleur-evac and maintained at 40 cm water suction. This procedure was not done sterilely, and again was done emergently. This pigtail chest tube had a significant air leak. Given the patient's prior history of a spontaneous hemothorax that did not resolve with a single pigtail chest tube, decision was made to place a formal open thoracostomy tube which would be large bore enough to completely decompress his pneumothorax. At this point, the patient was stable. We raised the arm above the head, and under sterile conditions, I placed a 28 Khmer right-sided chest tube (please see separate procedure note for details). At the end of this, the patient was much more calm and unlabored. The patient is no longer distresses and is hemodynamically stable. Subjective: 06/29: feels much better this AM. CXR without evidence of ptx. CT to [id number] suction. only had 1 small liquid BM which sounds like overflow diarrhea, despite vigorous bowel regimen. still feels constipated. on NC o2. Objective Vital Signs Date Time Temp Pulse Resp B/P Pulse Ox O2 Delivery O2 Flow Rate FiO2 06/29/16 06:00 89 06/29/16 04:00 98.5 27 125/71 99 06/28/16 21:00 Nasal Cannula 2.00 06/28/16 18:00 100 Intake and Output 06/28/16 06/28/16 06/29/16 08:00 16:00 00:00 Intake Total 750 ml 640 ml Output Total 20 ml 200 ml Balance 730 ml 440 ml Result Diagram: 06/26/1641606/26/16416 Objective Remarks GENERAL: Elderly male, sitting in bed, no distress this AM. HEENT: Normocephalic, atraumatic. Pupils equally round and reactive. Mucous membranes are moist. NECK: Trachea is midline. JVD unable to assess secondary to obesity CHEST: unlabored. on NC o2. equal breath sounds. right-sided chest tube with 300mL serosanguinous output. +tidal. no air leak with coughing. CARDIOVASCULAR: Normal rate, irregularly irregular rhythm. Rate is in the 70s on my evaluation. No appreciable murmurs. ABDOMEN: Obese, soft, nontender, moderately distended. No guarding. MUSCULOSKELETAL: 1+ peripheral edema. Distal pulses 2+. NEUROLOGICAL: RASS 0. CAM -. Follows commands all 4 extremity. A/P Assessment and Plan Assessment: This is a 70-year-old male with history of COPD and atrial fibrillation who was recently admitted and diagnosed with spontaneous pneumothorax, now recently status post removal of chest tubes, couse complicated by recurrent pneumothorax with tension physiology. now with new right chest tube. Clinically improved this AM, but I am concerned that we may be missing something from a ptx standpoint. I will order non-contrasted Chest CT to eval for structural abnormalities which may be contributing to his recurrent ptx. He has had prior radiation to that lung, and has COPD, so he has risk factors. If there are structural abnormalities, I will consult thoracic surgery. From a constipation standpoint, we have a vigorous bowel regimen, which we will continue. I will order non-contrasted CT abd/pelvis to ensure that this patient s/p partial colectomy with h/o colon cancer does not have any mechanical obstruction. If he does not have evidence of mechanical obstruction, we will proceed with Neostigmine to help alleviate constipation symptoms, since it appears by clinical history that Valsalva contributed to his initial spontaneous ptx. His afib RVR is more controlled this AM and we will transition from diltiazem drip to po dilt and increase his home dose. Active problems: Recurrent right-sided pneumothorax with tension physiology acute hypoxic respiratory failure- resolving Atrial fibrillation with rapid ventricular response Severe Constipation Plan: continue chest tube to suction --non-contrasted Chest CT, will consider thoracic surgery consult if there are structural abnormalities present --wean o2 by NC for goal spo2 > 90% --daily CXR --wean off dilt drip. --increase home dilt to 240mg daily Bowel Regimen: --senna/colace BID --lactulose TID --miraLAX BID --Dulcolax suppository daily --will give another bottle of mag citrate today --will order another enema today --will give a dose of methylnaltrexone SQ today --will obtain non-contrasted CT abd/pelvis to eval for mechanical obstruction --if no mechanical obstruction, and still no significant relief, will pursue Neostigmine --SCDs and home Xarelto for DVT prophylaxis --no GI prophy indicated at this time --remain in the ICU. Abhijeet Warren MD Jun 29, 2016 08:18
[2016-06-29] MEDS ORDERED: MAGNESIUM CITRATE SOLN 300 ML BTL PO ONE (08:30)
[2016-06-29] MEDS: guaiFENesin E.R. 600 MG TAB PO SCH ×2 (08:48→20:12)
[2016-06-29] MEDS: SENNOSIDES 8.6 MG TAB PO SCH (08:48)
[2016-06-29] MEDS: SODIUM CHLORIDE 0.9% FLUSH 5 ML FLUSH FLUSH SCH ×2 (08:48→20:13)
[2016-06-29] MEDS: POTASSIUM CHLORIDE 20 MEQ CONTROLLED RELEASE TAB PO SCH (08:48)
[2016-06-29] MEDS: LACTULOSE SYRUP 20 GM/30 ML CUP PO SCH ×3 (08:48→17:11)
[2016-06-29] MEDS: FUROSEMIDE 40 MG TAB PO SCH (08:49)
[2016-06-29] MEDS: MAGNESIUM OXIDE 400 MG TAB PO SCH (08:49)
[2016-06-29] MEDS: RIVAROXABAN 20 MG TAB PO SCH (08:49)
[2016-06-29] MEDS: BISACODYL 10 MG SUPP RECTAL SCH (08:49)
[2016-06-29] MEDS: DOCUSATE SODIUM 50 MG/SENNA 8.6 MG TAB PO SCH ×2 (08:49→20:12)
[2016-06-29] MEDS: predniSONE 5 MG TAB PO SCH (08:49)
[2016-06-29] MEDS ORDERED: MINERAL OIL ENEMA 118 ML BTL RECTAL ONE (09:00)
[2016-06-29] MEDS ORDERED: DILTIAZEM-CD 240 MG CAP ER PO SCH (09:00)
[2016-06-29] MEDS ORDERED: METHYLNALTREXONE BROMIDE 12 MG/0.6 ML VIAL SQ ONE (10:00)
[2016-06-29 10:07] LABS: HEMATOCRIT 42.9 % (39.0-51.0); MEAN CELL VOLUME 93.7 FL (80.0-100.0); MEAN CORPUSCULAR HEMOGLOBIN 32.2 PG (27.0-34.0); MEAN CORPUSCULAR HGB CONC 34.4 % (32.0-36.0); PLATELET COUNT 102 TH/MM3 (150-450); RED BLOOD COUNT 4.58 MIL/MM3 (4.50-5.90); RED CELL DISTRIBUTION WIDTH 15.7 % (11.6-17.2); REVIEW FLAG FINAL; WHITE BLOOD COUNT 10.4 TH/MM3 (4.0-11.0)
[2016-06-29] MEDS: POLYETHYLENE GLYCOL 17 GM PKG PO SCH ×2 (10:20→20:12)
[2016-06-29 11:40] LABS: BICARBONATE 30.8 MEQ/L (21.0-32.0)
[2016-06-29] MEDS ORDERED: DILTIAZEM HCL 25 MG/5 ML VIAL ONE (14:22)
--- NOTE | 2016-06-29 14:26 | RADRPT ---
EXAM DATE/TIME: 06/29/2016 13:14 [facility] COMPARISON: No previous studies available for comparison. INDICATIONS : Constipation; history of colon cancer. ORAL CONTRAST: No oral contrast ingested. RADIATION DOSE: 19.75 CTDIvol (mGy) ; Combined studies - Thorax/Abdomen/Pelvis MEDICAL HISTORY : Carcinoma, colon. Chronic obstructive pulmonary disease. Cardiovascular disease Renal disease, diabetes. SURGICAL HISTORY : Lobectomy. Hiatal hernia. ENCOUNTER: Initial ACUITY: 1 week PAIN SCALE: 0/10 LOCATION: Abdomen. TECHNIQUE: Volumetric scanning of the abdomen and pelvis was performed. Using automated exposure control and adjustment of the mA and/or kV according to patient size, radiation dose was kept as low as reasonably achievable to obtain optimal diagnostic quality images. FINDINGS: Large-bore chest tube is seen in the base of the lung. There is a very small right pneumothorax pres ent. Moderate coronary artery calcifications are noted. Portion of the liver and spleen identified are free of focal defects. Pancreas is unremarkable. Adrenal glands appear normal. There are no renal stones identified. The left ureter is dilated down to the mid pelvis. The point of obstruction is not identified. The point of obstruction is approximately 4 cm above the bladder. The right kidney is unremarkable. Pelvic contents appear otherwise normal with only moderate vascular calcifications. CONCLUSION: 1. Small right pneumothorax in spite of chest tube. 2. Dilatation of the left collecting system with dilated ureter extending down to within 4 cm of the bladder. Etiology for this dilatation is not appreciated. Thomas Dorsey MD FACR on June 29, 2016 at 14:10 Board Certified Radiologist. This report was verified electronically.
--- NOTE | 2016-06-29 14:30 | RADRPT ---
EXAM DATE/TIME: 06/29/2016 13:14 [facility] COMPARISON: CT THORAX W/O CONTRAST, January 31, 2014, 20:40. INDICATIONS : Recurrent spontaneous pneumothorax; evaluate for structural abnormality. RADIATION DOSE: 19.74 CTDIvol (mGy) ; Combined studies - Thorax/Abdomen/Pelvis MEDICAL HISTORY : Cardiovascular disease. Chronic obstructive pulmonary disease. Carcinoma, colon . SURGICAL HISTORY : Lobectomy. Colon resection. Hiatal hernia repair. ENCOUNTER: Initial ACUITY: 1 week PAIN SCALE: 7/10 LOCATION: Right chest TECHNIQUE: Volumetric scanning of the chest was performed. Using automated exposure control and adjustment of the mA and/or kV according to patient size, radiation dose was kept as low as reasonab ly achievable to obtain optimal diagnostic quality images. FINDINGS: Large-bore chest tube remains in place in the right base. There is a small pneumothorax anteriorly. There is moderate pleural thickening along the pleural surface of the lung. The right lung may not c ompletely re-expand. The left lung is small with some shift of the mediastinum to the right. Old left rib fractures are noted. There is no pericardial effusion identified. There is no axillary or significant mediastinal adenopathy appreciated. CONCLUSION: 1. Persistent loculated right pneumothorax. Chest tube is in the right base. 2. Given the amount of pleural thickening evident, the right lung may not re-expand. 3. I do not see any blebs. Does the patient have a persistent air leak? Thomas Dorsey MD FACR on June 29, 2016 at 14:18 Board Certified Radiologist. This report was verified electronically.
[2016-06-29] MEDS: DILTIAZEM 125 MG/NS 100 ML IV SCH ×2 (15:24)
[2016-06-29] MEDS ORDERED: fentaNYL CITRATE 250 MCG/5 ML AMP ONE (20:10)
[2016-06-29] MEDS: TAMSULOSIN HCL 0.4 MG CAP PO SCH (20:12)
[2016-06-29] MEDS: PRAVASTATIN SOD 80 MG TAB PO SCH (20:12)
[2016-06-29] MEDS ORDERED: LORazepam 2 MG/ML VIAL ONE (21:05)
--- NOTE | 2016-06-29 21:25 | PD.RAD ---
Post Procedure Progress Note Pre Procedure Diagnosis: (1) Pneumothorax Post Procedure Diagnosis: (1) Pneumothorax Procedure Date: Jun 29, 2016 Supervising Radiologist: Ryan Hillman Proceduralist/Assist: RT Jose(R)(CV) Anesthesia: Local, Conscious Sedation Plan of Activity Patient to Unit: Critical Care Patient Condition: Fair See PACS Report for procedural detail/treatment Drainage Procedure Procedure 1 Imaging Guidance: Fluoroscopy Side: Right Procedure Type: Chest Tube Non-Tunneled Procedure: Placement Iranian: 14 Drainage: Pleurovac Ryan Hillman MD Jun 29, 2016 21:25
--- NOTE | 2016-06-29 22:57 | RADRPT ---
EXAM DATE/TIME: 06/29/2016 22:19 [facility] COMPARISON: CHEST SINGLE AP, June 29, 2016, 6:24. CT THORAX W/O CONTRAST, June 29, 2016, 13:14. INDICATIONS : Post right chest tube placement MEDICAL HISTORY : Emphysema SURGICAL HISTORY : None. ENCOUNTER: Initial ACUITY: 1 day PAIN SCORE: Non-responsive. LOCATION: Bilateral chest FINDINGS: Large bore chest tube remains in place in the right lung base. There is now a pigtail catheter placed in the right apex. No evidence of pneumothorax is appreciated CONCLUSION: Placement second right chest tube pigtail catheter towards the apex with no evidence of pneumothorax Cristi Gutierrez MD on June 29, 2016 at 22:54 Board Certified Radiologist. This report was verified electronically.
[2016-06-30] VITALS (13 sets, daily range): BP systolic 117–149; BP diastolic 68–95; PULSE 81–101; RESP 18–30; TEMP 97.6–98.8; O2SAT 94–97
[2016-06-30] MEDS: RESP: ALBUTEROL 2.5 MG/IPRATROPIUM 0.5 MG NEB (SCH) NEB ×4 (03:53→21:10)
[2016-06-30] MEDS: INSULIN ASPART SUPPLEMENTAL SCALE SQ SCH ×4 (06:50→22:47)
--- NOTE | 2016-06-30 08:46 | RADRPT ---
EXAM DATE/TIME: 06/30/2016 08:18 [facility] COMPARISON: CHEST SINGLE AP, June 29, 2016, 6:24. INDICATIONS : Shortness of breath. MEDICAL HISTORY : Emphysema. SURGICAL HISTORY : None. ENCOUNTER: Subsequent ACUITY: 4 - 6 days PAIN SCORE: 0/10 LOCATION: Bilateral chest FINDINGS: Chest tube has been placed in the apex of the right lung. Large-bore chest tube is in the right base . Left lung is clear. Heart and pulmonary vascularity are normal. CONCLUSION: Large-bore chest tube apex of the right lung without pneumothorax. Thomas Dorsey MD FACR on June 30, 2016 at 8:43 Board Certified Radiologist. This report was verified electronically.
[2016-06-30] MEDS: LACTULOSE SYRUP 20 GM/30 ML CUP PO SCH ×3 (09:00→18:00)
[2016-06-30] MEDS: BISACODYL 10 MG SUPP RECTAL SCH (09:00)
[2016-06-30] MEDS: POLYETHYLENE GLYCOL 17 GM PKG PO SCH ×3 (09:00→22:50)
[2016-06-30] MEDS: DOCUSATE SODIUM 50 MG/SENNA 8.6 MG TAB PO SCH ×3 (09:00→22:50)
[2016-06-30] MEDS: POTASSIUM CHLORIDE 20 MEQ CONTROLLED RELEASE TAB PO SCH (09:34)
[2016-06-30] MEDS: guaiFENesin E.R. 600 MG TAB PO SCH ×2 (09:34→22:24)
[2016-06-30] MEDS: FUROSEMIDE 40 MG TAB PO SCH (09:34)
[2016-06-30] MEDS: SENNOSIDES 8.6 MG TAB PO SCH (09:34)
[2016-06-30] MEDS: RIVAROXABAN 20 MG TAB PO SCH (09:34)
[2016-06-30] MEDS: MAGNESIUM OXIDE 400 MG TAB PO SCH (09:35)
[2016-06-30] MEDS: DILTIAZEM-CD 180 MG CAP ER PO SCH (09:35)
[2016-06-30] MEDS: predniSONE 5 MG TAB PO SCH (09:35)
[2016-06-30] MEDS: SODIUM CHLORIDE 0.9% FLUSH 5 ML FLUSH FLUSH SCH ×2 (09:36→22:26)
--- NOTE | 2016-06-30 17:16 | EKG ---
Date Performed: 06/29/2016 Time Performed: 14:09:44 PTAGE: 70 years EKG: Atrial fibrillation with rapid ventricular response Left axis deviation LBBB Possible left ventricular hypertrophy Lateral ST-T changes may be due to hypertrophy and/or ischemia Abnormal ECG PREVIOUS TRACING : 06/25/2016 12.56 Since previous tracing, no significant change noted DOCTOR: Javed Nunez Interpretating Date/Time 06/30/2016 17:15:38
--- NOTE | 2016-06-30 18:42 | RADRPT ---
EXAM DATE/TIME: 06/29/2016 20:27 [facility] COMPARISON: No previous studies available for comparison. INDICATIONS : Patient with a history of recurrent pneumothorax. MEDICAL HISTORY : History of right sided tension pneumothorax, emphysema, bilateral lung cancer, HTN, DM, AFIB with RVR , colon cancer, chronic kidney disease, anemia, thrombocytopenia, left ureteral stricture. SURGICAL HISTORY : History of port placement, chest tube placement, partial colon resection, left lower lobe removal, he rnia repair, ureteral stent placement amd removal, cystoscopy with balloon dilatation. ENCOUNTER: Subsequent ACUITY: 1 week PAIN SCORE: 3/10 LOCATION: Shortness of breath FLUORO TIME: 3.8 minutes MEDICATION(S): 1.) 1 mg lorazepam (Ativan) IV 2.) 150 mcg fentanyl (Sublimaze) IV DEVICE(S): 1.) 14 Egyptian locking catheter Expel drainage catheter with twist-loc hub PROCEDURE : 1. Fluoroscopically guided chest tube placement. 2. Conscious sedation with continuous EKG and oximetry monitoring. The risks, benefits and alternatives to the procedure were explained and verbal and written consent w as obtained. The site was prepped in sterile fashion. Full sterile technique was used, including ca p, mask, sterile gloves and gown and a large sterile sheet. Hand hygiene and 2% chlorhexidine and/or betadine/alcohol prep was utilized per protocol for cutaneous antisepsis. The skin and subcutaneous tissues were infiltrated with local anesthetic solution. With fluoroscopic guidance the chest was punctured between the first and second interspace and the pr escribed catheter was placed in the lung apex. Wall suction was applied. Post procedure images demon strate satisfactory position of the tube. The catheter was sutured in place and a Percu-Stay was danyell lied. Conscious sedation was performed with the prescribed dosages and duration as above. The patient kanu ated the procedure well and there were no complications. EKG and oximetry remained stable throughout the procedure. The patient was sent to post anesthesia recovery in stable condition. CONCLUSION: Uncomplicated chest tube placement as above. Ryan Hillman MD on June 30, 2016 at 18:41 Board Certified Radiologist. This report was verified electronically.
--- NOTE | 2016-06-30 21:55 | HHI.CCPN ---
Subjective Remarks/Hospital Course Hospital Course: This patient is a 70-year-old male well-known to me who originally presented to the emergency department with right-sided spontaneous pneumothorax. At that time I was consult to evaluate the patient for recurrent pneumothorax. At that time, a second chest tube was placed by interventional radiology, and the patient was sent to the ICU for overnight monitoring. At that time he remained stable and was discharged to the floor. I was called emergently to the ICU for a rapid response that was coming from the floor. The rapid response was this gentleman who was in severe respiratory distress of few hours after his 2 chest tubes had been removed. The patient has an SPO2 of 70% and is being assisted with his ventilation with a [id number]. It was very difficult to accurately her breath sounds given the patient's obesity, but he did appear to have nearly absent breath sounds on the right. He is in severe respiratory distress. Emergently, I placed a 14-gauge 1.75 inch Angiocath in the second intercostal space, midclavicular line anteriorly and got a large gush of air. Immediately, the patient's respiratory distress subsided, and his saturations improved to 100%. Due to the patient's obesity and recent pulmonary instability , I decided that the safest possible action at this point was to place a slightly more permanent connection to the pleura. Through the 14-gauge Angiocath, I threaded a J-tipped guidewire into the pleural space, and over this I threaded a 8 Marshallese pigtail catheter. This pigtail catheter was connected to a Pleur-evac and maintained at 40 cm water suction. This procedure was not done sterilely, and again was done emergently. This pigtail chest tube had a significant air leak. Given the patient's prior history of a spontaneous hemothorax that did not resolve with a single pigtail chest tube, decision was made to place a formal open thoracostomy tube which would be large bore enough to completely decompress his pneumothorax. At this point, the patient was stable. We raised the arm above the head, and under sterile conditions, I placed a 28 Marshallese right-sided chest tube (please see separate procedure note for details). At the end of this, the patient was much more calm and unlabored. The patient is no longer distresses and is hemodynamically stable. Subjective: 06/29: feels much better this AM. CXR without evidence of ptx. CT to [id number] suction. only had 1 small liquid BM which sounds like overflow diarrhea, despite vigorous bowel regimen. still feels constipated. on NC o2. 06/30: CT scan yesterday with residual apical ptx. IR re-consulted and Dr. Hillman placed right apical pigtail chest tube with resolution of ptx. AM CXR this AM without evidence of ptx. successful large BM yesterday with complete resolution of severe constipation (almost 2 weeks without BM). feels good today. no complaints. Objective Vital Signs Date Time Temp Pulse Resp B/P Pulse Ox O2 Delivery O2 Flow Rate FiO2 06/30/16 18:00 81 06/30/16 16:16 24 06/30/16 16:00 98.8 132/80 97 06/30/16 13:21 Nasal Cannula 2.00 06/28/16 18:00 100 Intake and Output 06/29/16 06/29/16 06/30/16 08:00 16:00 00:00 Intake Total 480 ml 480 ml 667 ml Output Total 625 ml 650 ml 54 ml Balance -145 ml -170 ml 613 ml Result Diagram: 06/29/16 0845 06/29/16 1051 Other Results Microbiology Date/Time Procedure Status Source Growth 06/28/16 13:50 Gram Stain - Final Complete Sputum Expectorated Sputum 06/28/16 13:50 Sputum Culture - Final Complete Sputum Expectorated Sputum HEAVY GROWTH NORMAL RESPIRATORY BRIANA Objective Remarks GENERAL: Elderly male, sitting in bed, no distress this AM. HEENT: Normocephalic, atraumatic. Pupils equally round and reactive. Mucous membranes are moist. NECK: Trachea is midline. JVD unable to assess secondary to obesity CHEST: unlabored. on NC o2. equal breath sounds. right-sided chest tube in place with minimal serous output. right-sided pigtail catheter in place with minimal serous output. +tidal. no air leak with coughing. CARDIOVASCULAR: Normal rate, irregularly irregular rhythm. Rate is in the 70s on my evaluation. No appreciable murmurs. ABDOMEN: Obese, soft, nontender, moderately distended. No guarding. MUSCULOSKELETAL: 1+ peripheral edema. Distal pulses 2+. NEUROLOGICAL: RASS 0. CAM -. Follows commands all 4 extremity. A/P Assessment and Plan Assessment: This is a 70-year-old male with history of COPD and atrial fibrillation who was recently admitted and diagnosed with spontaneous pneumothorax, now recently status post removal of chest tubes, couse complicated by recurrent pneumothorax with tension physiology. now with new right chest tube and pigtail anterior chest tube. From a chest tube standpoint, I have discussed his care again today with Dr. Hillman. We both feel like after 3 pneumothoraces, we should be more conservative with his chest tube removals. We agree that we should give him at minimum another 24-48h, and then stage the removal of the chest tubes one at a time, most likely pulling the 28Fr first, and secondly the pigtail. Before we completely pull all chest tubes, Dr. Hillman feels it would be very helpful to get repeat non-contrasted CT chest to evaluate particularly the posterior apical bleb to see if there again is any structural reason. We are planning to hold off on CT surgery evaluation until we repeat the CT chest, and if there appears to be a structural abnormality, or residual ptx at that time, involve the thoracic surgery team. Active problems: Recurrent right-sided pneumothorax with tension physiology acute hypoxic respiratory failure- resolving Atrial fibrillation with rapid ventricular response Severe Constipation Plan: continue chest tubes to suction --non-contrasted Chest CT in 48h --conservative management of chest tubes --wean o2 by NC for goal spo2 > 90% --daily CXR --wean off dilt drip. --increase home dilt to 360mg daily Bowel Regimen: --senna/colace BID --lactulose TID prn --miraLAX BID --Dulcolax suppository daily prn -- goal daily bowel movements. --SCDs and home Xarelto for DVT prophylaxis --no GI prophy indicated at this time --remain in the ICU. Abhijeet Warren MD Jun 30, 2016 21:55
[2016-06-30] MEDS: PRAVASTATIN SOD 80 MG TAB PO SCH (22:25)
[2016-06-30] MEDS: TAMSULOSIN HCL 0.4 MG CAP PO SCH (22:25)
[2016-07-01] VITALS (14 sets, daily range): BP systolic 104–123; BP diastolic 58–74; PULSE 68–79; RESP 17–22; TEMP 97.7–98.6; O2SAT 95–98
[2016-07-01] MEDS: DILTIAZEM 125 MG/NS 100 ML IV SCH ×2 (01:29)
[2016-07-01] MEDS: RESP: ALBUTEROL 2.5 MG/IPRATROPIUM 0.5 MG NEB (SCH) NEB ×4 (04:09→21:13)
[2016-07-01] MEDS: INSULIN ASPART SUPPLEMENTAL SCALE SQ SCH ×4 (06:36→20:24)
[2016-07-01] MEDS: SENNOSIDES 8.6 MG TAB PO SCH (09:00)
[2016-07-01] MEDS: BISACODYL 10 MG SUPP RECTAL SCH (09:00)
[2016-07-01] MEDS: LACTULOSE SYRUP 20 GM/30 ML CUP PO SCH ×3 (09:00→18:00)
[2016-07-01] MEDS: predniSONE 5 MG TAB PO SCH (09:43)
[2016-07-01] MEDS: SODIUM CHLORIDE 0.9% FLUSH 5 ML FLUSH FLUSH SCH ×2 (09:43→21:00)
[2016-07-01] MEDS: RIVAROXABAN 20 MG TAB PO SCH (09:43)
[2016-07-01] MEDS: DILTIAZEM-CD 180 MG CAP ER PO SCH (09:44)
[2016-07-01] MEDS: POTASSIUM CHLORIDE 20 MEQ CONTROLLED RELEASE TAB PO SCH (09:44)
[2016-07-01] MEDS: FUROSEMIDE 40 MG TAB PO SCH (09:44)
[2016-07-01] MEDS: guaiFENesin E.R. 600 MG TAB PO SCH ×2 (09:44→20:25)
[2016-07-01] MEDS: MAGNESIUM OXIDE 400 MG TAB PO SCH (09:44)
--- NOTE | 2016-07-01 10:28 | HHI.CCPN ---
Subjective Remarks/Hospital Course Hospital Course: This patient is a 70-year-old male well-known to me who originally presented to the emergency department with right-sided spontaneous pneumothorax. At that time I was consult to evaluate the patient for recurrent pneumothorax. At that time, a second chest tube was placed by interventional radiology, and the patient was sent to the ICU for overnight monitoring. At that time he remained stable and was discharged to the floor. I was called emergently to the ICU for a rapid response that was coming from the floor. The rapid response was this gentleman who was in severe respiratory distress of few hours after his 2 chest tubes had been removed. The patient has an SPO2 of 70% and is being assisted with his ventilation with a [id number]. It was very difficult to accurately her breath sounds given the patient's obesity, but he did appear to have nearly absent breath sounds on the right. He is in severe respiratory distress. Emergently, I placed a 14-gauge 1.75 inch Angiocath in the second intercostal space, midclavicular line anteriorly and got a large gush of air. Immediately, the patient's respiratory distress subsided, and his saturations improved to 100%. Due to the patient's obesity and recent pulmonary instability , I decided that the safest possible action at this point was to place a slightly more permanent connection to the pleura. Through the 14-gauge Angiocath, I threaded a J-tipped guidewire into the pleural space, and over this I threaded a 8 Danish pigtail catheter. This pigtail catheter was connected to a Pleur-evac and maintained at 40 cm water suction. This procedure was not done sterilely, and again was done emergently. This pigtail chest tube had a significant air leak. Given the patient's prior history of a spontaneous hemothorax that did not resolve with a single pigtail chest tube, decision was made to place a formal open thoracostomy tube which would be large bore enough to completely decompress his pneumothorax. At this point, the patient was stable. We raised the arm above the head, and under sterile conditions, I placed a 28 Danish right-sided chest tube (please see separate procedure note for details). At the end of this, the patient was much more calm and unlabored. The patient is no longer distresses and is hemodynamically stable. Subjective: 06/29: feels much better this AM. CXR without evidence of ptx. CT to [id number] suction. only had 1 small liquid BM which sounds like overflow diarrhea, despite vigorous bowel regimen. still feels constipated. on NC o2. 06/30: CT scan yesterday with residual apical ptx. IR re-consulted and Dr. Hillman placed right apical pigtail chest tube with resolution of ptx. AM CXR this AM without evidence of ptx. successful large BM yesterday with complete resolution of severe constipation (almost 2 weeks without BM). feels good today. no complaints. 07/01: No acute issues overnight. The patient remains on 3 L nasal cannula, O2 saturation 97-98%. Patient had bowel movement this morning, the patient issued resolved. Patient continues on a Cardizem infusion receiving his first dose of oral Cardizem last evening. Objective Vital Signs Date Time Temp Pulse Resp B/P Pulse Ox O2 Delivery O2 Flow Rate FiO2 07/01/16 08:00 98.0 78 20 112/69 95 07/01/16 07:20 Nasal Cannula 3.00 06/28/16 18:00 100 Intake and Output 06/30/16 06/30/16 07/01/16 08:00 16:00 00:00 Intake Total 280 ml 682 ml Output Total 0 ml 910 ml Balance 280 ml -228 ml Result Diagram: 06/29/16 0845 06/29/16 1051 Other Results Microbiology Date/Time Procedure Status Source Growth 06/28/16 13:50 Gram Stain - Final Complete Sputum Expectorated Sputum 06/28/16 13:50 Sputum Culture - Final Complete Sputum Expectorated Sputum HEAVY GROWTH NORMAL RESPIRATORY BRIANA Objective Remarks GENERAL: Elderly male, sitting in bed, no distress this AM. HEENT: Normocephalic, atraumatic. Pupils equally round and reactive. Mucous membranes are moist. NECK: Trachea is midline. No JVD CHEST: On 3 L nasal cannula,B/L breath sounds equal. right-sided chest tube in place with minimal serous output. right-sided pigtail catheter in place with minimal serous output. +tidal. no noted air leak. CARDIOVASCULAR: Normal rate, irregularly irregular rhythm. Rate is in the 70s on my evaluation. No appreciable murmurs. On Cardizem infusion ABDOMEN: Obese, soft, nontender, moderately distended. No guarding. MUSCULOSKELETAL: 1+ peripheral edema. Distal pulses 2+. NEUROLOGICAL: RASS 0. CAM -. Follows commands x 4 extremities. A/P Assessment and Plan Assessment: This is a 70-year-old male with history of COPD and atrial fibrillation who was recently admitted and diagnosed with spontaneous pneumothorax, now recently status post removal of chest tubes, couse complicated by recurrent pneumothorax with tension physiology. now with new right chest tube and pigtail anterior chest tube. From a chest tube standpoint, I have discussed his care again today with Dr. Hillman. We both feel like after 3 pneumothoraces, we should be more conservative with his chest tube removals. We agree that we should give him at minimum another 24-48h, and then stage the removal of the chest tubes one at a time, most likely pulling the 28Fr first, and secondly the pigtail. Active problems: Recurrent right-sided pneumothorax with tension physiology acute hypoxic respiratory failure- resolving Atrial fibrillation with rapid ventricular response Severe Constipation Plan: continue chest tubes to suction --non-contrasted Chest CT -06/30 negative --conservative management of chest tubes --wean o2 by NC for goal spo2 > 90% --daily CXR --wean off dilt drip, Cardizem infusion at 5 mg/hour, continue to wean. --increase home dilt to 360mg daily Bowel Regimen: --senna/colace BID --lactulose TID prn --miraLAX BID --Dulcolax suppository daily prn -- goal daily bowel movements --SCDs and home Xarelto for DVT prophylaxis --no GI prophy indicated at this time -- to be transferred to CICU Dispo: Level 3 Physician Shital Cadet MD Jul 01, 2016 10:28
--- NOTE | 2016-07-01 11:43 | RADRPT ---
EXAM DATE/TIME: 07/01/2016 10:37 [facility] COMPARISON: CHEST SINGLE AP, June 30, 2016, 8:18. INDICATIONS: Respiratory disease, pneumothorax MEDICAL HISTORY: Emphysema. SURGICAL HISTORY: None. ENCOUNTER: Subsequent ACUITY: 1 week PAIN SCORE: 0/10 LOCATION: Bilateral chest FINDINGS: The right-sided chest tubes are stable in appearance compared to previous examination. The heart and mediastinal structures are unchanged. No acute focal pulmonary infiltrate is noted. There is persi stent elevation of the left yinka-diaphragm. No pneumothorax is noted. CONCLUSION: 1. No significant change compared to 06/30/16. Jose R Solomon MD on July 01, 2016 at 11:36 Board Certified Radiologist. This report was verified electronically.
[2016-07-01] MEDS: ALPRAZolam 0.25 MG TAB PO PRN (12:45)
--- NOTE | 2016-07-01 15:04 | RADRPT ---
EXAM DATE/TIME: 07/01/2016 13:51 [facility] COMPARISON: CHEST SINGLE AP, July 01, 2016, 10:37. INDICATIONS : Chest tube, water seal MEDICAL HISTORY : None. SURGICAL HISTORY : None. ENCOUNTER: Subsequent ACUITY: 1 week PAIN SCORE: 0/10 LOCATION: Bilateral chest FINDINGS: A single view of the chest demonstrates 2 right-sided chest tubes there is a large basilar thoracosto my tube and a pigtail apical tube. There is no evidence of pneumothorax. Chest is otherwise stable. CONCLUSION: No evidence of pneumothorax line placement of chest tube to waterseal. Nasim Varma MD on July 01, 2016 at 14:58 Board Certified Radiologist. This report was verified electronically.
--- NOTE | 2016-07-01 19:13 | HHI.PR ---
Subjective Remarks 70 YOWM with COPD,PTX, s/p Chest tube Breathing much better Weaned to NC Two chest tubes to water seal Denies sob Gets anxious some time Objective Vital Signs Vital Signs Date Time Temp Pulse Resp B/P Pulse Ox O2 Delivery O2 Flow Rate FiO2 07/01/16 18:00 79 07/01/16 17:00 76 07/01/16 16:00 68 07/01/16 15:00 76 07/01/16 15:00 98.2 76 18 104/63 98 07/01/16 15:00 94 Nasal Cannula 3.00 07/01/16 11:00 97.7 79 18 121/74 95 07/01/16 11:00 79 07/01/16 11:00 95 Nasal Cannula 3.00 07/01/16 08:00 98.0 78 20 112/69 95 07/01/16 08:00 78 07/01/16 07:20 97 Nasal Cannula 3.00 07/01/16 07:00 95 Nasal Cannula 3.00 07/01/16 06:00 77 07/01/16 04:00 73 07/01/16 04:00 97.9 73 22 116/58 95 07/01/16 02:00 79 07/01/16 00:00 76 07/01/16 00:00 98.6 76 20 123/70 96 06/30/16 22:00 84 06/30/16 21:10 94 Nasal Cannula 3.00 06/30/16 20:00 94 06/30/16 20:00 98.7 82 18 144/72 94 I/O 06/30/16 06/30/16 06/30/16 07/01/16 07/01/16 07/01/16 07:00 15:00 23:00 07:00 15:00 23:00 Intake Total 280 ml 682 ml 369 ml 960 ml Output Total 0 ml 910 ml 470 ml 933 ml Balance 280 ml -228 ml -101 ml 27 ml Intake Oral 240 ml 600 ml 320 ml 960 ml IV Total 40 ml 82 ml 49 ml Output Urine Total 880 ml 450 ml 875 ml Chest Tube Drainage Total 0 ml 30 ml 20 ml 58 ml # Voids 2 # Bowel Movements 4 3 2 3 Result Diagram: 06/29/16 0845 06/29/16 1051 Objective Remarks GENERAL: WBWN WM, NAD SKIN: Warm and dry. HEAD: Normocephalic. EYES: No scleral icterus. No injection or drainage. NECK: Supple, trachea midline. No JVD or lymphadenopathy. CARDIOVASCULAR: Regular rate and rhythm without murmurs, gallops, or rubs. RESPIRATORY: Breath sounds equal bilaterally. No accessory muscle use. Two right chest tubes, has air leak GASTROINTESTINAL: Abdomen soft, non-tender, nondistended. MUSCULOSKELETAL: No cyanosis, or edema. BACK: Nontender without obvious deformity. No CVA tenderness. A/P Assessment and Plan Right PTX, s/p chest tubes COPD HTN AF Ca lung and Colon PLAN: Chest tubes to water seal Supplement 02 Cont Xarelto Pred 5 mg daily Xanax prn anxiety. Jasen Zacarias MD Jul 01, 2016 19:13
[2016-07-01] MEDS: PRAVASTATIN SOD 80 MG TAB PO SCH (20:24)
[2016-07-01] MEDS: TAMSULOSIN HCL 0.4 MG CAP PO SCH (20:24)
[2016-07-01] MEDS: DOCUSATE SODIUM 50 MG/SENNA 8.6 MG TAB PO SCH (21:00)
[2016-07-01] MEDS: POLYETHYLENE GLYCOL 17 GM PKG PO SCH (21:00)
[2016-07-02] VITALS (7 sets, daily range): BP systolic 103–126; BP diastolic 57–65; PULSE 72–85; RESP 17–20; TEMP 97.8–98.6; O2SAT 96–98
[2016-07-02] MEDS: RESP: ALBUTEROL 2.5 MG/IPRATROPIUM 0.5 MG NEB (SCH) NEB ×3 (03:55→15:44)
[2016-07-02 04:44] LABS: BICARBONATE 29.8 MEQ/L (21.0-32.0); POTASSIUM 3.7 MEQ/L (3.5-5.1)
--- NOTE | 2016-07-02 06:44 | RADRPT ---
EXAM DATE/TIME: 07/02/2016 05:39 [facility] COMPARISON: CHEST SINGLE AP, July 01, 2016, 13:51. INDICATIONS : Short of breath. MEDICAL HISTORY : Cardiovascular disease. Chronic obstructive pulmonary disease. Carcinoma, colon. SURGICAL HISTORY : Lobectomy. Colon resection. Hiatal hernia repair. ENCOUNTER: Subsequent ACUITY: 1 week PAIN SCORE: Non-responsive. LOCATION: Bilateral chest FINDINGS: A single view of the chest demonstrates 2 right-sided chest tubes, stable. No pneumothorax. Right bas ilar density in seen. The cardiomediastinal contours are unremarkable. Old left-sided rib fractures. CONCLUSION: No evidence for pneumothorax. Persistent right basilar density. Leonid Chavez MD on July 02, 2016 at 6:41 Board Certified Radiologist. This report was verified electronically.
[2016-07-02] MEDS: INSULIN ASPART SUPPLEMENTAL SCALE SQ SCH ×4 (07:00→21:00)
[2016-07-02] MEDS: SODIUM CHLORIDE 0.9% FLUSH 5 ML FLUSH FLUSH SCH ×2 (08:56→22:08)
[2016-07-02] MEDS: predniSONE 5 MG TAB PO SCH (09:00)
[2016-07-02] MEDS: DILTIAZEM-CD 180 MG CAP ER PO SCH (09:00)
[2016-07-02] MEDS: DOCUSATE SODIUM 50 MG/SENNA 8.6 MG TAB PO SCH ×2 (09:00→21:00)
[2016-07-02] MEDS: FUROSEMIDE 40 MG TAB PO SCH (09:00)
[2016-07-02] MEDS: RIVAROXABAN 20 MG TAB PO SCH (09:00)
[2016-07-02] MEDS: guaiFENesin E.R. 600 MG TAB PO SCH ×2 (09:00→22:09)
[2016-07-02] MEDS: POTASSIUM CHLORIDE 20 MEQ CONTROLLED RELEASE TAB PO SCH (09:00)
[2016-07-02] MEDS: MAGNESIUM OXIDE 400 MG TAB PO SCH (09:00)
--- NOTE | 2016-07-02 18:18 | HHI.CCPN ---
Subjective Remarks/Hospital Course Hospital Course: This patient is a 70-year-old male well-known to me who originally presented to the emergency department with right-sided spontaneous pneumothorax. At that time I was consult to evaluate the patient for recurrent pneumothorax. At that time, a second chest tube was placed by interventional radiology, and the patient was sent to the ICU for overnight monitoring. At that time he remained stable and was discharged to the floor. I was called emergently to the ICU for a rapid response that was coming from the floor. The rapid response was this gentleman who was in severe respiratory distress of few hours after his 2 chest tubes had been removed. The patient has an SPO2 of 70% and is being assisted with his ventilation with a jle-yvags-nlda. It was very difficult to accurately her breath sounds given the patient's obesity, but he did appear to have nearly absent breath sounds on the right. He is in severe respiratory distress. Emergently, I placed a 14-gauge 1.75 inch Angiocath in the second intercostal space, midclavicular line anteriorly and got a large gush of air. Immediately, the patient's respiratory distress subsided, and his saturations improved to 100%. Due to the patient's obesity and recent pulmonary instability , I decided that the safest possible action at this point was to place a slightly more permanent connection to the pleura. Through the 14-gauge Angiocath, I threaded a J-tipped guidewire into the pleural space, and over this I threaded a 8 Maldivian pigtail catheter. This pigtail catheter was connected to a Pleur-evac and maintained at 40 cm water suction. This procedure was not done sterilely, and again was done emergently. This pigtail chest tube had a significant air leak. Given the patient's prior history of a spontaneous hemothorax that did not resolve with a single pigtail chest tube, decision was made to place a formal open thoracostomy tube which would be large bore enough to completely decompress his pneumothorax. At this point, the patient was stable. We raised the arm above the head, and under sterile conditions, I placed a 28 Maldivian right-sided chest tube (please see separate procedure note for details). At the end of this, the patient was much more calm and unlabored. The patient is no longer distresses and is hemodynamically stable. Subjective: 06/29: feels much better this AM. CXR without evidence of ptx. CT to [id number] suction. only had 1 small liquid BM which sounds like overflow diarrhea, despite vigorous bowel regimen. still feels constipated. on NC o2. 06/30: CT scan yesterday with residual apical ptx. IR re-consulted and Dr. Hillman placed right apical pigtail chest tube with resolution of ptx. AM CXR this AM without evidence of ptx. successful large BM yesterday with complete resolution of severe constipation (almost 2 weeks without BM). feels good today. no complaints. 07/01: No acute issues overnight. The patient remains on 3 L nasal cannula, O2 saturation 97-98%. Patient had bowel movement this morning, the patient issued resolved. Patient continues on a Cardizem infusion receiving his first dose of oral Cardizem last evening. 07/02: No output from chest tubes, placed to waterseal., Pulmonary following. Patient continues on 2 L/m nasal cannula. O2 saturation 97-99%. Cardizem infusion discontinued, last evening. Objective Vital Signs Date Time Temp Pulse Resp B/P Pulse Ox O2 Delivery O2 Flow Rate FiO2 07/02/16 15:00 98.4 83 20 126/65 96 07/02/16 15:00 Nasal Cannula 3.00 06/28/16 18:00 100 Intake and Output 07/01/16 07/01/16 07/02/16 08:00 16:00 00:00 Intake Total 369 ml 960 ml Output Total 470 ml 933 ml Balance -101 ml 27 ml Result Diagram: 06/29/16 0845 07/02/16 0354 Imaging Last 24 hours Impressions Chest X-Ray 07/02/16 0600 Signed Impressions: Service Date/Time: Saturday, July 02, 2016 05:39 - CONCLUSION: No evidence for pneumothorax. Persistent right basilar density. Leonid Chavez MD Objective Remarks GENERAL: Elderly male, sitting in bed, no respiratory distress . HEENT: Normocephalic, atraumatic. Pupils equally round and reactive. Mucous membranes are moist. NECK: Trachea is midline. No JVD CHEST: On 3 L nasal cannula,B/L breath sounds equal. right-sided chest tube in place with no output. right-sided pigtail catheter in place with no output. + tidal. Both placed to waterseal. CARDIOVASCULAR: Normal rate, irregularly irregular rhythm. Rate is in the 70s on my evaluation. No appreciable murmurs. On Cardizem infusion ABDOMEN: Obese, soft, nontender, moderately distended. No guarding. MUSCULOSKELETAL: 1+ peripheral edema. Distal pulses 2+. NEUROLOGICAL: RASS 0. CAM -. Follows commands x 4 extremities. Urinary Catheter: No Vascular Central Line Catheter: No A/P Assessment and Plan Assessment: This is a 70-year-old male with history of COPD and atrial fibrillation who was recently admitted and diagnosed with spontaneous pneumothorax, now recently status post removal of chest tubes, couse complicated by recurrent pneumothorax with tension physiology. now with new right chest tube and pigtail anterior chest tube. From a chest tube standpoint, I have discussed his care again today with Dr. Hillman. We both feel like after 3 pneumothoraces, we should be more conservative with his chest tube removals. We agree that we should give him at minimum another 24-48h, and then stage the removal of the chest tubes one at a time, most likely pulling the 28Fr first, and secondly the pigtail. Active problems: Recurrent right-sided pneumothorax with tension physiology acute hypoxic respiratory failure- resolving Atrial fibrillation with rapid ventricular response Severe Constipation-resolved Plan: continue chest tubes to suction --non-contrasted Chest CT -06/30 negative --conservative management of chest tubes --wean o2 by NC for goal spo2 > 90% --daily CXR --wean off dilt drip, Cardizem infusion at 5 mg/hour, continue to wean. --increase home dilt to 360mg daily Bowel Regimen: --senna/colace BID --lactulose TID prn on hold --miraLAX BID on hold --Dulcolax suppository daily prn -- goal daily bowel movements --SCDs and home Xarelto for DVT prophylaxis --no GI prophy indicated at this time -- to be transferred to CICU Dispo: Level 2 Physician Shital Cadet MD Jul 02, 2016 18:18
--- NOTE | 2016-07-02 18:58 | HHI.PR ---
Subjective Remarks 70 YOWM with COPD,PTX, s/p Chest tube Breathing much better Weaned to NC Denies sob Gets anxious some time Was out of bed to commode One chest tube to water seal, other to suction no air leak CXR no PTX Objective Vital Signs Vital Signs Date Time Temp Pulse Resp B/P Pulse Ox O2 Delivery O2 Flow Rate FiO2 07/02/16 15:00 98.4 83 20 126/65 96 07/02/16 15:00 95 Nasal Cannula 3.00 07/02/16 15:00 84 07/02/16 11:00 95 Nasal Cannula 3.00 07/02/16 11:00 85 07/02/16 11:00 98.6 85 18 103/65 96 07/02/16 07:35 98 Nasal Cannula 3.00 07/02/16 07:00 76 07/02/16 07:00 95 Nasal Cannula 2.00 07/02/16 07:00 98.2 76 17 117/60 96 07/02/16 03:00 95 Nasal Cannula 3.00 07/02/16 03:00 72 07/02/16 03:00 74 18 103/57 97 07/01/16 23:00 73 07/01/16 23:00 98.0 73 17 109/60 96 07/01/16 23:00 94 Nasal Cannula 3.00 07/01/16 21:15 97 Nasal Cannula 3.00 07/01/16 19:00 98.1 74 18 115/60 95 07/01/16 19:00 96 Nasal Cannula 3.00 07/01/16 19:00 73 I/O 07/01/16 07/01/16 07/01/16 07/02/16 07/02/16 07/02/16 07:00 15:00 23:00 07:00 15:00 23:00 Intake Total 369 ml 960 ml 960 ml 750 ml 750 ml Output Total 470 ml 933 ml 350 ml 1100 ml 1100 ml Balance -101 ml 27 ml 610 ml -350 ml -350 ml Intake Oral 320 ml 960 ml 960 ml 700 ml 700 ml IV Total 49 ml 50 ml 50 ml Output Urine Total 450 ml 875 ml 350 ml 1100 ml 1100 ml Chest Tube Drainage Total 20 ml 58 ml 0 ml # Bowel Movements 2 3 0 2 2 Result Diagram: 06/29/16 0845 07/02/16 0354 Objective Remarks GENERAL: WBWN WM, NAD SKIN: Warm and dry. HEAD: Normocephalic. EYES: No scleral icterus. No injection or drainage. NECK: Supple, trachea midline. No JVD or lymphadenopathy. CARDIOVASCULAR: Regular rate and rhythm without murmurs, gallops, or rubs. RESPIRATORY: Breath sounds equal bilaterally. No accessory muscle use. Two right chest tubes, has air leak GASTROINTESTINAL: Abdomen soft, non-tender, nondistended. MUSCULOSKELETAL: No cyanosis, or edema. BACK: Nontender without obvious deformity. No CVA tenderness. A/P Assessment and Plan Right PTX, s/p chest tubes COPD HTN AF Ca lung and Colon PLAN: Put Both Chest tubes to water seal CXR in AM If no ptx, can clamp chest tube Supplement 02 Cont Xarelto Pred 5 mg daily Xanax prn anxiety. Jasen Zacarias MD Jul 02, 2016 18:58
[2016-07-02] MEDS: RESP: ALBUTEROL 2.5 MG/IPRATROPIUM 0.5 MG NEB (PRN) NEB (20:32)
[2016-07-02] MEDS: TAMSULOSIN HCL 0.4 MG CAP PO SCH (22:08)
[2016-07-02] MEDS: PRAVASTATIN SOD 80 MG TAB PO SCH (22:09)
[2016-07-03] VITALS (13 sets, daily range): BP systolic 93–116; BP diastolic 63–78; PULSE 55–80; RESP 18–20; TEMP 98–99.4; O2SAT 94–97
--- NOTE | 2016-07-03 07:25 | RADRPT ---
EXAM DATE/TIME: 07/03/2016 06:50 [facility] COMPARISON: CHEST SINGLE AP, July 01, 2016, 10:37. CHEST SINGLE AP, July 01, 2016, 13:51. CHEST SINGLE AP , July 02, 2016, 5:39. INDICATIONS : Right pneumothorax. MEDICAL HISTORY : Cardiovascular disease. Chronic obstructive pulmonary disease.Carcinoma, colon. SURGICAL HISTORY : Lobectomy. Colon resection. Hiatal hernia repair. ENCOUNTER: Subsequent ACUITY: 1 week PAIN SCORE: 0/10 LOCATION: Right chest FINDINGS: Portable AP view of the chest demonstrates a normal-sized cardiac silhouette with calcification of th e aorta. Multiple EKG lines overlie the patient. 2 right chest tubes remain present and no pneumothor ax is visualized. There is a pleural-parenchymal opacity at the left lung base that has increased. CONCLUSION: 1. 2 chest tubes remain present on the right and no pneumothorax is visualized. 2. Increased left basilar pleural-parenchymal opacity likely representing pleural effusion with assoc iated volume loss and/or airspace consolidation. Ryan Melgoza MD on July 03, 2016 at 7:22 Board Certified Radiologist. This report was verified electronically.
[2016-07-03] MEDS: INSULIN ASPART SUPPLEMENTAL SCALE SQ SCH ×4 (08:23→21:12)
[2016-07-03] MEDS: SODIUM CHLORIDE 0.9% FLUSH 5 ML FLUSH FLUSH SCH ×2 (08:24→21:13)
[2016-07-03] MEDS: guaiFENesin E.R. 600 MG TAB PO SCH ×2 (08:34→21:13)
[2016-07-03] MEDS: MAGNESIUM OXIDE 400 MG TAB PO SCH (08:34)
[2016-07-03] MEDS: POTASSIUM CHLORIDE 20 MEQ CONTROLLED RELEASE TAB PO SCH (08:34)
[2016-07-03] MEDS: DILTIAZEM-CD 180 MG CAP ER PO SCH (08:34)
[2016-07-03] MEDS: DOCUSATE SODIUM 50 MG/SENNA 8.6 MG TAB PO SCH ×2 (08:34→21:12)
[2016-07-03] MEDS: RIVAROXABAN 20 MG TAB PO SCH (08:34)
[2016-07-03] MEDS: FUROSEMIDE 40 MG TAB PO SCH (08:34)
[2016-07-03] MEDS: predniSONE 5 MG TAB PO SCH (08:34)
--- NOTE | 2016-07-03 12:10 | HHI.CCPN ---
Subjective Remarks/Hospital Course Hospital Course: This patient is a 70-year-old male well-known to me who originally presented to the emergency department with right-sided spontaneous pneumothorax. At that time I was consult to evaluate the patient for recurrent pneumothorax. At that time, a second chest tube was placed by interventional radiology, and the patient was sent to the ICU for overnight monitoring. At that time he remained stable and was discharged to the floor. I was called emergently to the ICU for a rapid response that was coming from the floor. The rapid response was this gentleman who was in severe respiratory distress of few hours after his 2 chest tubes had been removed. The patient has an SPO2 of 70% and is being assisted with his ventilation with a [id number]. It was very difficult to accurately her breath sounds given the patient's obesity, but he did appear to have nearly absent breath sounds on the right. He is in severe respiratory distress. Emergently, I placed a 14-gauge 1.75 inch Angiocath in the second intercostal space, midclavicular line anteriorly and got a large gush of air. Immediately, the patient's respiratory distress subsided, and his saturations improved to 100%. Due to the patient's obesity and recent pulmonary instability , I decided that the safest possible action at this point was to place a slightly more permanent connection to the pleura. Through the 14-gauge Angiocath, I threaded a J-tipped guidewire into the pleural space, and over this I threaded a 8 [place] pigtail catheter. This pigtail catheter was connected to a Pleur-evac and maintained at 40 cm water suction. This procedure was not done sterilely, and again was done emergently. This pigtail chest tube had a significant air leak. Given the patient's prior history of a spontaneous hemothorax that did not resolve with a single pigtail chest tube, decision was made to place a formal open thoracostomy tube which would be large bore enough to completely decompress his pneumothorax. At this point, the patient was stable. We raised the arm above the head, and under sterile conditions, I placed a 28 [place] right-sided chest tube (please see separate procedure note for details). At the end of this, the patient was much more calm and unlabored. The patient is no longer distresses and is hemodynamically stable. Subjective: 06/29: feels much better this AM. CXR without evidence of ptx. CT to [id number] suction. only had 1 small liquid BM which sounds like overflow diarrhea, despite vigorous bowel regimen. still feels constipated. on NC o2. 06/30: CT scan yesterday with residual apical ptx. IR re-consulted and Dr. Hillman placed right apical pigtail chest tube with resolution of ptx. AM CXR this AM without evidence of ptx. successful large BM yesterday with complete resolution of severe constipation (almost 2 weeks without BM). feels good today. no complaints. 07/01: No acute issues overnight. The patient remains on 3 L nasal cannula, O2 saturation 97-98%. Patient had bowel movement this morning, the patient issued resolved. Patient continues on a Cardizem infusion receiving his first dose of oral Cardizem last evening. 07/02: No output from chest tubes, placed to waterseal., Pulmonary following. Patient continues on 2 L/m nasal cannula. O2 saturation 97-99%. Cardizem infusion discontinued, last evening. 07/03: Afebrile. O2 sat remains 97% on 2 L nasal cannula. Patient up out of bed in the last 24 hours with PT, plan today's removal of pigtail catheter. Chest tube to remain to waterseal. Pulmonary on board. Chest x-ray this a.m. showed pleural effusion, additional dose of Lasix given. Objective Vital Signs Date Time Temp Pulse Resp B/P Pulse Ox O2 Delivery O2 Flow Rate FiO2 07/03/16 11:03 79 07/03/16 11:03 98.2 18 116/63 96 07/03/16 11:03 Nasal Cannula 2.00 07/03/16 07:25 21 Intake and Output 07/02/16 07/02/16 07/03/16 08:00 16:00 00:00 Intake Total 960 ml 750 ml 750 ml Output Total 350 ml 1100 ml 1100 ml Balance 610 ml -350 ml -350 ml Result Diagram: 06/29/16 0845 07/02/16 0354 Imaging Last 24 hours Impressions Chest X-Ray 07/02/16 0600 Signed Impressions: Service Date/Time: Saturday, July 02, 2016 05:39 - CONCLUSION: No evidence for pneumothorax. Persistent right basilar density. Leonid Chavez MD Objective Remarks GENERAL: Elderly male, sitting in bed, no respiratory distress . HEENT: Normocephalic, atraumatic. Pupils equally round and reactive. Mucous membranes are moist. NECK: Trachea is midline. No JVD CHEST: On 3 L nasal cannula,B/L breath sounds equal.Right-sided chest tube in place with no output. right-sided pigtail catheter in place with no output. + tidal. [facility]. CARDIOVASCULAR: Normal rate, irregularly irregular rhythm. Rate is in the 70s on my evaluation. No appreciable murmurs. ABDOMEN: Obese, soft, nontender, moderately distended. No guarding. MUSCULOSKELETAL: 1+ peripheral edema. Distal pulses 2+. NEUROLOGICAL: RASS 0. CAM -. Follows commands x 4 extremities. Urinary Catheter: No Vascular Central Line Catheter: No A/P Assessment and Plan Assessment: This is a 70-year-old male with history of COPD and atrial fibrillation who was recently admitted and diagnosed with spontaneous pneumothorax, now recently status post removal of chest tubes, couse complicated by recurrent pneumothorax with tension physiology. now with new right chest tube and pigtail anterior chest tube. From a chest tube standpoint, I have discussed with Dr. Hillman, pigtail catheter to be removed today. Active problems: Recurrent right-sided pneumothorax with tension physiology acute hypoxic respiratory failure- resolving Atrial fibrillation with rapid ventricular response Severe Constipation-resolved Plan: Chest tubes to waterseal --non-contrasted Chest CT -06/30 negative --conservative management of chest tubes --wean o2 by NC for goal spo2 > 90% --daily CXR-07/03 increased opacity, pleural effusion,additional dose of Lasix given. --Continue home med Diltiziam 360mg/day - Incentive Spirometry every hour while awake -Continue scheduled duo nebs every 6 hours Bowel Regimen: --senna/colace BID --lactulose TID prn on hold --miraLAX BID on hold --Dulcolax suppository daily prn -- goal daily bowel movements --SCDs and home Xarelto for DVT prophylaxis --no GI prophy indicated at this time -- to be transferred to floor, Pulmonolgist, Dr. Zacarias following Dispo: Critical care medicine signed off. Planned transfer to hospitalist Level 2 Physician Shital Cadet MD Jul 03, 2016 12:10
[2016-07-03] MEDS: RESP: ALBUTEROL 2.5 MG/IPRATROPIUM 0.5 MG NEB (SCH) NEB ×3 (12:30→20:00)
[2016-07-03] MEDS ORDERED: FUROSEMIDE 20 MG/2 ML VIAL IV PUSH ONE (12:30)
--- NOTE | 2016-07-03 14:42 | RADRPT ---
EXAM DATE/TIME: 07/03/2016 14:09 [facility] COMPARISON: CHEST EXPIRATION ONLY, June 29, 2016, 22:19. INDICATIONS: Post chest tube removal. Evaluate for pneumothorax. MEDICAL HISTORY: Cardiovascular disease. Chronic obstructive pulmonary disease. Carcinoma, colon. SURGICAL HISTORY: Lobectomy. Colon resection. Hiatal hernia repair. ENCOUNTER: Subsequent ACUITY: 4 - 6 days PAIN SCORE: 3/10 LOCATION: Bilateral chest FINDINGS: One of the right-sided chest tubes has been removed. No recurrent pneumothorax is noted. A chest tu be remains within the right lung base. Bilateral scattered densities are noted within the lungs and are stable. CONCLUSION: 1. No pneumothorax status post removal of one of the right-sided chest tubes. 2. No significant change in the scattered parenchymal densities bilaterally. Jose R Solomon MD on July 03, 2016 at 14:31 Board Certified Radiologist. This report was verified electronically.
--- NOTE | 2016-07-03 18:54 | HHI.PR ---
Subjective Remarks 70 YOWM with COPD,PTX, s/p Chest tube Breathing much better Weaned to NC Denies sob Gets anxious some time Was out of bed to commode One chest tube removed Denies sob, mild chest discomfort Objective Vital Signs Vital Signs Date Time Temp Pulse Resp B/P Pulse Ox O2 Delivery O2 Flow Rate FiO2 07/03/16 15:52 97 Nasal Cannula 2.00 07/03/16 15:52 98.0 79 18 101/72 96 07/03/16 15:46 72 07/03/16 11:03 79 07/03/16 11:03 98.2 79 18 116/63 96 07/03/16 11:03 96 Nasal Cannula 2.00 07/03/16 07:25 95 21 07/03/16 07:00 98.3 80 18 93/67 96 07/03/16 07:00 96 Nasal Cannula 2.00 07/03/16 07:00 80 07/03/16 04:00 95 Nasal Cannula 2.00 07/03/16 04:00 55 20 114/64 95 07/03/16 04:00 55 07/03/16 00:00 94 Nasal Cannula 2.00 07/03/16 00:00 64 07/03/16 00:00 98.0 64 18 111/78 94 07/02/16 20:33 96 Nasal Cannula 2.00 07/02/16 20:00 97 Nasal Cannula 2.00 07/02/16 20:00 72 07/02/16 20:00 97.8 72 18 114/62 97 07/02/16 20:00 72 I/O 07/02/16 07/02/16 07/02/16 07/03/16 07/03/16 07/03/16 07:00 15:00 23:00 07:00 15:00 23:00 Intake Total 960 ml 750 ml 750 ml 240 ml 1080 ml Output Total 350 ml 1100 ml 1100 ml 395 ml 1135 ml Balance 610 ml -350 ml -350 ml -155 ml -55 ml Intake Oral 960 ml 700 ml 700 ml 240 ml 1080 ml IV Total 50 ml 50 ml Output Urine Total 350 ml 1100 ml 1100 ml 300 ml 1100 ml Stool Total 50 ml Chest Tube Drainage Total 0 ml 45 ml 35 ml # Bowel Movements 0 2 2 2 Result Diagram: 06/29/16 0845 07/02/16 0354 Objective Remarks GENERAL: WBWN WM, NAD SKIN: Warm and dry. HEAD: Normocephalic. EYES: No scleral icterus. No injection or drainage. NECK: Supple, trachea midline. No JVD or lymphadenopathy. CARDIOVASCULAR: Regular rate and rhythm without murmurs, gallops, or rubs. RESPIRATORY: Breath sounds equal bilaterally. No accessory muscle use. Two right chest tubes, has air leak GASTROINTESTINAL: Abdomen soft, non-tender, nondistended. MUSCULOSKELETAL: No cyanosis, or edema. BACK: Nontender without obvious deformity. No CVA tenderness. A/P Assessment and Plan Right PTX, s/p chest tubes COPD HTN AF Ca lung and Colon PLAN: Supplement 02 Cont Xarelto Pred 5 mg daily Xanax prn anxiety. Clamp chest tube 4 AM Rpt CXR If no ptx, will remove chest tube Jasen Zacarias MD Jul 03, 2016 18:54
[2016-07-03] MEDS: TAMSULOSIN HCL 0.4 MG CAP PO SCH (21:12)
[2016-07-03] MEDS: PRAVASTATIN SOD 80 MG TAB PO SCH (21:12)
[2016-07-04] VITALS (14 sets, daily range): BP systolic 100–131; BP diastolic 57–76; PULSE 67–102; RESP 18–20; TEMP 97.9–99; O2SAT 95–99
[2016-07-04] MEDS: RESP: ALBUTEROL 2.5 MG/IPRATROPIUM 0.5 MG NEB (SCH) NEB ×4 (04:14→20:52)
[2016-07-04] MEDS: INSULIN ASPART SUPPLEMENTAL SCALE SQ SCH ×4 (07:00→21:09)
[2016-07-04] MEDS: FUROSEMIDE 40 MG TAB PO SCH (08:54)
[2016-07-04] MEDS: DILTIAZEM-CD 180 MG CAP ER PO SCH (08:54)
[2016-07-04] MEDS: predniSONE 5 MG TAB PO SCH (08:55)
[2016-07-04] MEDS: MAGNESIUM OXIDE 400 MG TAB PO SCH (08:55)
[2016-07-04] MEDS: guaiFENesin E.R. 600 MG TAB PO SCH ×2 (08:55→21:08)
[2016-07-04] MEDS: RIVAROXABAN 20 MG TAB PO SCH (08:55)
[2016-07-04] MEDS: POTASSIUM CHLORIDE 20 MEQ CONTROLLED RELEASE TAB PO SCH (08:55)
[2016-07-04] MEDS: DOCUSATE SODIUM 50 MG/SENNA 8.6 MG TAB PO SCH ×2 (08:56→21:08)
[2016-07-04] MEDS: SODIUM CHLORIDE 0.9% FLUSH 5 ML FLUSH FLUSH SCH ×2 (08:56→21:00)
--- NOTE | 2016-07-04 10:07 | RADRPT ---
EXAM DATE/TIME: 07/04/2016 08:02 [facility] COMPARISON: CHEST SINGLE AP, July 03, 2016, 6:50. INDICATIONS: Evaluate for pneumothorax. MEDICAL HISTORY: Cardiovascular disease. Chronic obstructive pulmonary disease. Carcinoma, colon. Asthma., A-fib. SURGICAL HISTORY: Colon resection. Lobectomy ENCOUNTER: Subsequent ACUITY: 2 weeks PAIN SCORE: 0/10 LOCATION: Bilateral chest FINDINGS: A right-sided chest tube remains in the base. There is no pneumothorax. The heart and mediastinal s tructures are stable. The lungs are also unchanged. CONCLUSION: 1. No pneumothorax. Jose R Solomon MD on July 04, 2016 at 9:42 Board Certified Radiologist. This report was verified electronically.
--- NOTE | 2016-07-04 10:36 | RADRPT ---
EXAM DATE/TIME: 07/04/2016 00:00 [facility] COMPARISON: CHEST SINGLE AP, July 04, 2016, 8:02. INDICATIONS : PNEUMOTHORAX DEVICE(S): 1.) Vaseline occlusive dressinggauze and tape PROCEDURE : Chest tube removal. Using aseptic technique the previously placed chest tube was easily removed in one piece and Vaseline gauze and sterile dressing was applied. Chest radiograph is to be obtained. CONCLUSION: Uncomplicated chest tube removal. Ryan Hillman MD on July 04, 2016 at 10:34 Board Certified Radiologist. This report was verified electronically.
--- NOTE | 2016-07-04 13:00 | HHI.PR ---
Subjective Remarks Follow-up for pneumothorax Patient seen this morning, the injury Patient denies any shortness of breath, mild soreness in chest tube site. Chest x-ray did not show any pneumothorax. Objective Vitals Vital Signs Date Time Temp Pulse Resp B/P Pulse Ox O2 Delivery O2 Flow Rate FiO2 07/04/16 09:48 99 Nasal Cannula 2.00 07/04/16 08:00 98.1 83 18 101/57 98 07/04/16 08:00 97 Nasal Cannula 2.00 07/04/16 07:00 82 07/04/16 05:00 18 07/04/16 04:12 99 Nasal Cannula 2.00 07/04/16 04:00 83 07/04/16 04:00 98 Nasal Cannula 2.00 07/04/16 04:00 98.1 83 18 101/57 98 07/04/16 03:00 69 07/04/16 02:00 67 07/04/16 01:00 71 07/04/16 00:00 97.9 75 18 103/67 96 07/04/16 00:00 96 Nasal Cannula 2.00 07/04/16 00:00 75 07/03/16 23:00 75 07/03/16 22:00 18 07/03/16 22:00 69 07/03/16 21:00 75 07/03/16 20:00 99.4 74 18 104/65 97 07/03/16 20:00 98 Nasal Cannula 2.00 07/03/16 20:00 74 07/03/16 19:12 95 Nasal Cannula 2.00 07/03/16 19:00 75 07/03/16 15:52 97 Nasal Cannula 2.00 07/03/16 15:52 98.0 79 18 101/72 96 07/03/16 15:46 72 I/O 07/03/16 07/03/16 07/03/16 07/04/16 07/04/16 07/04/16 07:00 15:00 23:00 07:00 15:00 23:00 Intake Total 240 ml 1080 ml 505 ml Output Total 395 ml 1135 ml 5 ml Balance -155 ml -55 ml 500 ml Intake Oral 240 ml 1080 ml 500 ml IV Total 5 ml Output Urine Total 300 ml 1100 ml Stool Total 50 ml Chest Tube Drainage Total 45 ml 35 ml 5 ml # Voids 1 # Bowel Movements 2 1 Result Diagram: 1/10/17 0354 Objective Remarks GENERAL: Elderly male, sitting in bed, no respiratory distress . HEENT: Normocephalic, atraumatic. Pupils equally round and reactive. Mucous membranes are moist. NECK: Trachea is midline. No JVD CHEST: Right-sided chest tube in place with no output. CARDIOVASCULAR: Normal rate, irregularly irregular rhythm. Rate is in the 70s on my evaluation. No appreciable murmurs. ABDOMEN: Obese, soft, nontender, moderately distended. No guarding. MUSCULOSKELETAL: 1+ peripheral edema. Distal pulses 2+. A/P Assessment and Plan Assessment: This is a 70-year-old male with history of COPD and atrial fibrillation who was recently admitted and diagnosed with spontaneous pneumothorax, now recently status post removal of chest tubes, couse complicated by recurrent pneumothorax with tension physiology. Active problems: Recurrent right-sided pneumothorax with tension physiology acute hypoxic respiratory failure- resolving Atrial fibrillation with rapid ventricular response Severe Constipation-resolved Plan: Repeat pneumothorax today personally reviewed did not show any pneumothorax, awaiting input from pulmonary. For chest tube removal today. If successful, possible discharge tomorrow. In use oxygen support, incentive spirometry. -Continue scheduled duo nebs every 6 hours status post pigtail removal yesterday. Continue prednisone. Bowel Regimen: --senna/colace BID --lactulose TID prn on hold --miraLAX BID on hold --Dulcolax suppository daily prn -- goal daily bowel movements --SCDs and home Xarelto for DVT prophylaxis Xarelto Discharge Planning Discharge tomorrow if cleared by pulmonary. Jose G Melara MD Jul 04, 2016 13:00
--- NOTE | 2016-07-04 18:17 | HHI.PR ---
Subjective Remarks 70 YOWM with COPD,PTX, s/p Chest tube Breathing much better Weaned to NC Denies sob Gets anxious some time Was out of bed to commode Denies sob, mild chest discomfort Objective Vital Signs Vital Signs Date Time Temp Pulse Resp B/P Pulse Ox O2 Delivery O2 Flow Rate FiO2 07/04/16 16:00 98.6 76 20 100/62 95 07/04/16 16:00 95 Nasal Cannula 2.00 07/04/16 16:00 76 07/04/16 12:00 102 07/04/16 12:00 98.7 102 20 125/76 96 07/04/16 12:00 96 Nasal Cannula 2.00 07/04/16 09:48 99 Nasal Cannula 2.00 07/04/16 08:00 98.1 83 18 101/57 98 07/04/16 08:00 97 Nasal Cannula 2.00 07/04/16 07:00 82 07/04/16 05:00 18 07/04/16 04:12 99 Nasal Cannula 2.00 07/04/16 04:00 83 07/04/16 04:00 98 Nasal Cannula 2.00 07/04/16 04:00 98.1 83 18 101/57 98 07/04/16 03:00 69 07/04/16 02:00 67 07/04/16 01:00 71 07/04/16 00:00 97.9 75 18 103/67 96 07/04/16 00:00 96 Nasal Cannula 2.00 07/04/16 00:00 75 07/03/16 23:00 75 07/03/16 22:00 18 07/03/16 22:00 69 07/03/16 21:00 75 07/03/16 20:00 99.4 74 18 104/65 97 07/03/16 20:00 98 Nasal Cannula 2.00 07/03/16 20:00 74 07/03/16 19:12 95 Nasal Cannula 2.00 07/03/16 19:00 75 I/O 07/03/16 07/03/16 07/03/16 07/04/16 07/04/16 07/04/16 07:00 15:00 23:00 07:00 15:00 23:00 Intake Total 240 ml 1080 ml 505 ml Output Total 395 ml 1135 ml 5 ml Balance -155 ml -55 ml 500 ml Intake Oral 240 ml 1080 ml 500 ml IV Total 5 ml Output Urine Total 300 ml 1100 ml Stool Total 50 ml Chest Tube Drainage Total 45 ml 35 ml 5 ml # Voids 1 # Bowel Movements 2 1 Result Diagram: 07/02/16 0354 Objective Remarks GENERAL: WBWN WM, NAD SKIN: Warm and dry. HEAD: Normocephalic. EYES: No scleral icterus. No injection or drainage. NECK: Supple, trachea midline. No JVD or lymphadenopathy. CARDIOVASCULAR: Regular rate and rhythm without murmurs, gallops, or rubs. RESPIRATORY: Breath sounds equal bilaterally. No accessory muscle use. Two right chest tubes, has air leak GASTROINTESTINAL: Abdomen soft, non-tender, nondistended. MUSCULOSKELETAL: No cyanosis, or edema. BACK: Nontender without obvious deformity. No CVA tenderness. A/P Assessment and Plan Right PTX, s/p chest tubes COPD HTN AF Ca lung and Colon PLAN: Supplement 02 Cont Xarelto Pred 5 mg daily Xanax prn anxiety. Leave chest tube clamped CXR in AM and DC chest tube Jasen Zacarias MD Jul 04, 2016 18:16
[2016-07-04] MEDS: PRAVASTATIN SOD 80 MG TAB PO SCH (21:08)
[2016-07-04] MEDS: TAMSULOSIN HCL 0.4 MG CAP PO SCH (21:08)
[2016-07-05] VITALS (10 sets, daily range): BP systolic 94–151; BP diastolic 62–79; PULSE 68–84; RESP 18–22; TEMP 98.5–98.9; O2SAT 95–98
[2016-07-05] MEDS: RESP: ALBUTEROL 2.5 MG/IPRATROPIUM 0.5 MG NEB (SCH) NEB ×4 (03:12→19:53)
--- NOTE | 2016-07-05 05:19 | RADRPT ---
EXAM DATE/TIME: 07/05/2016 04:45 [facility] COMPARISON: CHEST SINGLE AP, July 04, 2016, 8:02. INDICATIONS : Evaluate for pneumothorax. MEDICAL HISTORY : Cardiovascular disease. Chronic obstructive pulmonary disease. Carcinoma, colon. SURGICAL HISTORY : Lobectomy. Colon resection. Hiatal hernia repair. ENCOUNTER: Subsequent ACUITY: 1 week PAIN SCORE: Non-responsive. LOCATION: Bilateral chest FINDINGS: The cardiac silhouette is enlarged in transverse diameter. There is elevation of the left hemidiaphra gm. A right chest tube is in place. There is no evidence of pneumothorax. CONCLUSION: There is no evidence of pneumothorax. Russell Sandoval MD on July 05, 2016 at 5:17 Board Certified Radiologist. This report was verified electronically.
[2016-07-05] MEDS: INSULIN ASPART SUPPLEMENTAL SCALE SQ SCH ×4 (06:53→21:09)
[2016-07-05] MEDS: SODIUM CHLORIDE 0.9% FLUSH 5 ML FLUSH FLUSH SCH ×2 (08:23→21:09)
[2016-07-05] MEDS: guaiFENesin E.R. 600 MG TAB PO SCH ×2 (08:24→21:26)
[2016-07-05] MEDS: DILTIAZEM-CD 180 MG CAP ER PO SCH (08:24)
[2016-07-05] MEDS: MAGNESIUM OXIDE 400 MG TAB PO SCH (08:24)
[2016-07-05] MEDS: FUROSEMIDE 40 MG TAB PO SCH (08:25)
[2016-07-05] MEDS: predniSONE 5 MG TAB PO SCH (08:25)
[2016-07-05] MEDS: RIVAROXABAN 20 MG TAB PO SCH (08:25)
[2016-07-05] MEDS: POTASSIUM CHLORIDE 20 MEQ CONTROLLED RELEASE TAB PO SCH (08:25)
[2016-07-05] MEDS: DOCUSATE SODIUM 50 MG/SENNA 8.6 MG TAB PO SCH ×2 (08:25→21:08)
--- NOTE | 2016-07-05 10:54 | HHI.PR ---
Subjective Remarks 70 YOWM with COPD,PTX, s/p Chest tube Breathing much better Weaned to NC Denies sob Denies sob, mild chest discomfort CXR no PTX Objective Vital Signs Vital Signs Date Time Temp Pulse Resp B/P Pulse Ox O2 Delivery O2 Flow Rate FiO2 07/05/16 09:15 96 Nasal Cannula 2.00 07/05/16 08:00 76 07/05/16 08:00 95 Nasal Cannula 2.00 07/05/16 08:00 98.6 76 20 99/62 95 07/05/16 03:00 72 07/05/16 03:00 97 Nasal Cannula 2.00 07/05/16 03:00 98.9 68 18 151/72 97 07/04/16 23:00 98.8 81 20 131/70 98 07/04/16 23:00 98 Nasal Cannula 2.00 07/04/16 23:00 68 07/04/16 20:45 95 Nasal Cannula 2.00 07/04/16 19:00 90 07/04/16 19:00 95 Nasal Cannula 2.00 07/04/16 19:00 99.0 78 18 119/68 95 07/04/16 17:21 24 07/04/16 16:00 98.6 76 20 100/62 95 07/04/16 16:00 95 Nasal Cannula 2.00 07/04/16 16:00 76 07/04/16 12:00 102 07/04/16 12:00 98.7 102 20 125/76 96 07/04/16 12:00 96 Nasal Cannula 2.00 I/O 07/04/16 07/04/16 07/04/16 07/05/16 07/05/16 07/05/16 07:00 15:00 23:00 07:00 15:00 23:00 Intake Total 505 ml 1080 ml 480 ml Output Total 5 ml 340 ml 400 ml Balance 500 ml 740 ml 80 ml Intake Oral 500 ml 1080 ml 480 ml IV Total 5 ml Output Urine Total 300 ml 400 ml Chest Tube Drainage Total 5 ml 40 ml # Voids 1 2 1 # Bowel Movements 1 2 0 Result Diagram: 07/02/16 0354 Objective Remarks GENERAL: WBWN WM, NAD SKIN: Warm and dry. HEAD: Normocephalic. EYES: No scleral icterus. No injection or drainage. NECK: Supple, trachea midline. No JVD or lymphadenopathy. CARDIOVASCULAR: Regular rate and rhythm without murmurs, gallops, or rubs. RESPIRATORY: Breath sounds equal bilaterally. No accessory muscle use. Two right chest tubes, has air leak GASTROINTESTINAL: Abdomen soft, non-tender, nondistended. MUSCULOSKELETAL: No cyanosis, or edema. BACK: Nontender without obvious deformity. No CVA tenderness. A/P Assessment and Plan Right PTX, s/p chest tubes COPD HTN AF Ca lung and Colon PLAN: Supplement 02 Cont Xarelto Pred 5 mg daily Xanax prn anxiety. DC chest tube--done CXR Jasen Zacarias MD Jul 05, 2016 10:54
--- NOTE | 2016-07-05 12:41 | HHI.PR ---
Subjective Remarks Follow-up for pneumothorax Breathing is better, mild soreness on deep inspiration. Chest tube removed today. Afebrile. Objective Vitals Vital Signs Date Time Temp Pulse Resp B/P Pulse Ox O2 Delivery O2 Flow Rate FiO2 07/05/16 09:15 96 Nasal Cannula 2.00 07/05/16 08:00 76 07/05/16 08:00 95 Nasal Cannula 2.00 07/05/16 08:00 98.6 76 20 99/62 95 07/05/16 03:00 72 07/05/16 03:00 97 Nasal Cannula 2.00 07/05/16 03:00 98.9 68 18 151/72 97 07/04/16 23:00 98.8 81 20 131/70 98 07/04/16 23:00 98 Nasal Cannula 2.00 07/04/16 23:00 68 07/04/16 20:45 95 Nasal Cannula 2.00 07/04/16 19:00 90 07/04/16 19:00 95 Nasal Cannula 2.00 07/04/16 19:00 99.0 78 18 119/68 95 07/04/16 17:21 24 07/04/16 16:00 98.6 76 20 100/62 95 07/04/16 16:00 95 Nasal Cannula 2.00 07/04/16 16:00 76 I/O 07/04/16 07/04/16 07/04/16 07/05/16 07/05/16 07/05/16 07:00 15:00 23:00 07:00 15:00 23:00 Intake Total 505 ml 1080 ml 480 ml Output Total 5 ml 340 ml 400 ml Balance 500 ml 740 ml 80 ml Intake Oral 500 ml 1080 ml 480 ml IV Total 5 ml Output Urine Total 300 ml 400 ml Chest Tube Drainage Total 5 ml 40 ml # Voids 1 2 1 # Bowel Movements 1 2 0 Result Diagram: 07/02/16 0354 Objective Remarks GENERAL: Elderly male, sitting in bed, no respiratory distress . HEENT: Normocephalic, atraumatic. Pupils equally round and reactive. Mucous membranes are moist. NECK: Trachea is midline. No JVD CHEST: Right-sided chest tube in place with no output. CARDIOVASCULAR: Normal rate, irregularly irregular rhythm. Rate is in the 70s on my evaluation. No appreciable murmurs. ABDOMEN: Obese, soft, nontender, moderately distended. No guarding. MUSCULOSKELETAL: 1+ peripheral edema. Distal pulses 2+. A/P Assessment and Plan Assessment: This is a 70-year-old male with history of COPD and atrial fibrillation who was recently admitted and diagnosed with spontaneous pneumothorax, now recently status post removal of chest tubes, couse complicated by recurrent pneumothorax with tension physiology. Active problems: Recurrent right-sided pneumothorax with tension physiology acute hypoxic respiratory failure- resolving Atrial fibrillation with rapid ventricular response Severe Constipation-resolved Plan: Repeat chest x-ray today personally reviewed, pneumothorax resolved. Chest tube removed today. If successful, possible discharge tomorrow. In use oxygen support, incentive spirometry. -Continue scheduled duo nebs every 6 hours status post pigtail removal . Continue prednisone. Bowel Regimen: --senna/colace BID --lactulose TID prn on hold --miraLAX BID on hold --Dulcolax suppository daily prn -- goal daily bowel movements --SCDs and home Xarelto for DVT prophylaxis Xarelto Discharge Planning Discharge tomorrow if cleared by pulmonary. Transfer to [facility]. Jose G Melara MD Jul 05, 2016 12:41
--- NOTE | 2016-07-05 13:15 | RADRPT ---
EXAM DATE/TIME: 07/05/2016 12:15 [place] COMPARISON: CHEST SINGLE AP, July 05, 2016, 4:45. INDICATIONS : Post chest tube removal MEDICAL HISTORY : Chronic obstructive pulmonary disease. Cardiovascular disease. SURGICAL HISTORY : hiatal hernia ENCOUNTER: Initial ACUITY: 1 day PAIN SCORE: Non-responsive. LOCATION: Bilateral chest FINDINGS: Interval removal of a right-sided chest tube. The right hemithorax is clear without evidence of pneum othorax or pleural effusion. There is stable elevation of the left hemidiaphragm. Cardiac size is em ssly unremarkable given the portable technique. Osseous structures are unremarkable. CONCLUSION: Interval removal of a right-sided chest tube. No evidence of pneumothorax. Nora Jeffery MD on July 05, 2016 at 13:12 Board Certified Radiologist. This report was verified electronically.
[2016-07-05] MEDS: PRAVASTATIN SOD 80 MG TAB PO SCH (21:00)
[2016-07-05] MEDS: TAMSULOSIN HCL 0.4 MG CAP PO SCH (21:07)
[2016-07-06] VITALS (26 sets, daily range): BP systolic 98–128; BP diastolic 57–87; PULSE 65–83; RESP 16–20; TEMP 97.7–98.6; O2SAT 94–100
[2016-07-06] MEDS: RESP: ALBUTEROL 2.5 MG/IPRATROPIUM 0.5 MG NEB (SCH) NEB ×4 (03:46→19:54)
[2016-07-06] MEDS: MAGNESIUM OXIDE 400 MG TAB PO SCH (08:18)
[2016-07-06] MEDS: RIVAROXABAN 20 MG TAB PO SCH (08:18)
[2016-07-06] MEDS: FUROSEMIDE 40 MG TAB PO SCH (08:18)
[2016-07-06] MEDS: POTASSIUM CHLORIDE 20 MEQ CONTROLLED RELEASE TAB PO SCH (08:18)
[2016-07-06] MEDS: guaiFENesin E.R. 600 MG TAB PO SCH ×2 (08:18→20:53)
[2016-07-06] MEDS: DOCUSATE SODIUM 50 MG/SENNA 8.6 MG TAB PO SCH ×2 (08:18→20:53)
[2016-07-06] MEDS: SODIUM CHLORIDE 0.9% FLUSH 5 ML FLUSH FLUSH SCH ×2 (08:19→20:54)
[2016-07-06] MEDS: INSULIN ASPART SUPPLEMENTAL SCALE SQ SCH ×4 (08:25→20:56)
[2016-07-06] MEDS: predniSONE 5 MG TAB PO SCH (09:48)
[2016-07-06] MEDS: DILTIAZEM-CD 180 MG CAP ER PO SCH (09:48)
[2016-07-06] MEDS ORDERED: OXYC-392 PO (13:03)
--- NOTE | 2016-07-06 15:16 | HHI.PR ---
Subjective Remarks Follow-up for pneumothorax No chest pain, no shortness of breath. No nausea or vomiting. Chest tube removed yesterday. No leukocytosis. Objective Vitals Vital Signs Date Time Temp Pulse Resp B/P Pulse Ox O2 Delivery O2 Flow Rate FiO2 07/06/16 13:09 80 07/06/16 13:00 79 07/06/16 12:22 81 07/06/16 11:40 97.9 80 20 102/57 100 07/06/16 11:40 Nasal Cannula 2.00 21 07/06/16 11:40 83 07/06/16 10:00 80 07/06/16 09:00 80 07/06/16 08:17 99 Nasal Cannula 2.00 07/06/16 08:00 79 07/06/16 08:00 97.7 79 16 98/60 98 07/06/16 08:00 98 Nasal Cannula 2.00 07/06/16 07:00 80 07/06/16 04:00 98.6 69 18 119/72 94 07/06/16 04:00 96 Nasal Cannula 2.00 07/06/16 03:00 65 07/06/16 02:00 68 07/06/16 01:00 71 07/06/16 00:00 97 Nasal Cannula 2.00 07/06/16 00:00 65 07/05/16 23:00 76 07/05/16 21:00 81 07/05/16 20:00 97 Nasal Cannula 2.00 07/05/16 20:00 98.9 84 22 130/79 97 07/05/16 20:00 77 07/05/16 19:53 98 Nasal Cannula 1.00 07/05/16 19:00 78 07/05/16 16:00 98.8 80 20 94/63 97 07/05/16 16:00 80 07/05/16 16:00 97 Nasal Cannula 2.00 I/O 07/05/16 07/05/16 07/05/16 07/06/16 07/06/16 07/06/16 07:00 15:00 23:00 07:00 15:00 23:00 Intake Total 480 ml 840 ml 405 ml Output Total 400 ml 470 ml 275 ml Balance 80 ml 370 ml 130 ml Intake Oral 480 ml 840 ml 400 ml IV Total 5 ml Output Urine Total 400 ml 450 ml 275 ml Chest Tube Drainage Total 20 ml # Voids 1 4 2 # Bowel Movements 0 1 1 Result Diagram: 07/02/16 0354 Objective Remarks GENERAL: Elderly male, sitting in bed, no respiratory distress . HEENT: Normocephalic, atraumatic. Pupils equally round and reactive. Mucous membranes are moist. NECK: Trachea is midline. No JVD CHEST: Right-sided chest tube in place with no output. CARDIOVASCULAR: Normal rate, irregularly irregular rhythm. Rate is in the 70s on my evaluation. No appreciable murmurs. ABDOMEN: Obese, soft, nontender, moderately distended. No guarding. MUSCULOSKELETAL: 1+ peripheral edema. Distal pulses 2+. A/P Assessment and Plan Assessment: This is a 70-year-old male with history of COPD and atrial fibrillation who was recently admitted and diagnosed with spontaneous pneumothorax, now recently status post removal of chest tubes, couse complicated by recurrent pneumothorax with tension physiology. Active problems: Recurrent right-sided pneumothorax with tension physiology acute hypoxic respiratory failure- resolving Atrial fibrillation with rapid ventricular response Severe Constipation-resolved Plan: Repeat chest x-ray today personally reviewed, pneumothorax resolved. Chest tube removed 07/05/16. Discharge once cleared by pulmonary and once we have in place. -Continue scheduled duo nebs every 6 hours status post pigtail removal . Continue prednisone. Check CBC and BMP tomorrow Bowel Regimen: --senna/colace BID --lactulose TID prn on hold --miraLAX BID on hold --Dulcolax suppository daily prn -- goal daily bowel movements --SCDs and home Xarelto for DVT prophylaxis Xarelto Discharge Planning Discharge tomorrow if cleared by pulmonary. Transfer to [facility]. Jose G Melara MD Jul 06, 2016 15:16
--- NOTE | 2016-07-06 16:58 | HHI.PR ---
Subjective Remarks 70 YOWM with COPD,PTX, s/p Chest tube Breathing much better Weaned to NC Denies sob Denies sob, mild chest discomfort CXR no PTX feels weak,gets panicky Objective Vital Signs Vital Signs Date Time Temp Pulse Resp B/P Pulse Ox O2 Delivery O2 Flow Rate FiO2 07/06/16 16:19 77 07/06/16 15:25 Nasal Cannula 2.00 21 07/06/16 15:25 98.3 80 20 128/87 95 07/06/16 15:25 74 07/06/16 13:09 80 07/06/16 13:00 79 07/06/16 12:22 81 07/06/16 11:40 97.9 80 20 102/57 100 07/06/16 11:40 Nasal Cannula 2.00 21 07/06/16 11:40 83 07/06/16 10:00 80 07/06/16 09:00 80 07/06/16 08:17 99 Nasal Cannula 2.00 07/06/16 08:00 79 07/06/16 08:00 97.7 79 16 98/60 98 07/06/16 08:00 98 Nasal Cannula 2.00 07/06/16 07:00 80 07/06/16 04:00 98.6 69 18 119/72 94 07/06/16 04:00 96 Nasal Cannula 2.00 07/06/16 03:00 65 07/06/16 02:00 68 07/06/16 01:00 71 07/06/16 00:00 97 Nasal Cannula 2.00 07/06/16 00:00 65 07/05/16 23:00 76 07/05/16 21:00 81 07/05/16 20:00 97 Nasal Cannula 2.00 07/05/16 20:00 98.9 84 22 130/79 97 07/05/16 20:00 77 07/05/16 19:53 98 Nasal Cannula 1.00 07/05/16 19:00 78 I/O 07/05/16 07/05/16 07/05/16 07/06/16 07/06/16 07/06/16 07:00 15:00 23:00 07:00 15:00 23:00 Intake Total 480 ml 840 ml 405 ml Output Total 400 ml 470 ml 275 ml Balance 80 ml 370 ml 130 ml Intake Oral 480 ml 840 ml 400 ml IV Total 5 ml Output Urine Total 400 ml 450 ml 275 ml Chest Tube Drainage Total 20 ml # Voids 1 4 2 # Bowel Movements 0 1 1 Result Diagram: 07/02/16 0354 Objective Remarks GENERAL: WBWN WM, NAD SKIN: Warm and dry. HEAD: Normocephalic. EYES: No scleral icterus. No injection or drainage. NECK: Supple, trachea midline. No JVD or lymphadenopathy. CARDIOVASCULAR: Regular rate and rhythm without murmurs, gallops, or rubs. RESPIRATORY: Breath sounds equal bilaterally. No accessory muscle use. Two right chest tubes, has air leak GASTROINTESTINAL: Abdomen soft, non-tender, nondistended. MUSCULOSKELETAL: No cyanosis, or edema. BACK: Nontender without obvious deformity. No CVA tenderness. A/P Assessment and Plan Right PTX, s/p chest tubes COPD HTN AF Ca lung and Colon PLAN: Supplement 02 Cont Xarelto Pred 5 mg daily Xanax prn anxiety. Oxygen walk test DC plans for AM home vs rehab Jasen Zacarias MD Jul 06, 2016 16:58
[2016-07-06] MEDS: PRAVASTATIN SOD 80 MG TAB PO SCH (20:53)
[2016-07-06] MEDS: TAMSULOSIN HCL 0.4 MG CAP PO SCH (20:53)
[2016-07-07] VITALS (23 sets, daily range): BP systolic 96–119; BP diastolic 57–64; PULSE 58–92; RESP 16–21; TEMP 96.8–98.8; O2SAT 95–99
[2016-07-07] MEDS: RESP: ALBUTEROL 2.5 MG/IPRATROPIUM 0.5 MG NEB (SCH) NEB ×2 (04:24→08:22)
[2016-07-07 04:43] LABS: AUTOMATED NEUTROPHIL # 5.9 TH/MM3 (1.8-7.7); BASOPHIL % 0.6 % (0.0-2.0); EOSINOPHIL # 0.2 TH/MM3 (0-0.4); EOSINOPHIL % 2.9 % (0.0-4.0); HEMATOCRIT 32.9 % (39.0-51.0); LYMPH % 6.3 % (9.0-44.0); LYMPHOCYTE # 0.4 TH/MM3 (1.0-4.8); MEAN CORPUSCULAR HGB CONC 34.4 % (32.0-36.0); MONO % 7.1 % (0.0-8.0); NEUT % 83.1 % (16.0-70.0); PLATELET COUNT 124 TH/MM3 (150-450); RED BLOOD COUNT 3.54 MIL/MM3 (4.50-5.90); RED CELL DISTRIBUTION WIDTH 15.1 % (11.6-17.2); WHITE BLOOD COUNT 7.1 TH/MM3 (4.0-11.0)
[2016-07-07 04:47] LABS: BICARBONATE 32.7 MEQ/L (21.0-32.0); POTASSIUM 3.2 MEQ/L (3.5-5.1)
[2016-07-07 05:11] LABS: HEMO FLAGS AUTO DIFF
[2016-07-07] MEDS: INSULIN ASPART SUPPLEMENTAL SCALE SQ SCH ×4 (05:48→20:26)
[2016-07-07 06:10] LABS: KERATOCYTES OCC (NORMAL); OVALOCYTES 1+ (NORMAL); PLATELET ESTIMATE SMEAR LOW (NORMAL); PLATELET MORPHOLOGY NORMAL (NORMAL); SCAN/DIFF AUTO DIFF CONFIRMED
[2016-07-07] MEDS: DILTIAZEM-CD 180 MG CAP ER PO SCH (09:51)
[2016-07-07] MEDS: POTASSIUM CHLORIDE 20 MEQ CONTROLLED RELEASE TAB PO SCH (09:51)
[2016-07-07] MEDS: RIVAROXABAN 20 MG TAB PO SCH (09:51)
[2016-07-07] MEDS: guaiFENesin E.R. 600 MG TAB PO SCH ×2 (09:51→20:27)
[2016-07-07] MEDS: MAGNESIUM OXIDE 400 MG TAB PO SCH (09:51)
[2016-07-07] MEDS: FUROSEMIDE 40 MG TAB PO SCH (09:51)
[2016-07-07] MEDS: predniSONE 5 MG TAB PO SCH (09:52)
[2016-07-07] MEDS: DOCUSATE SODIUM 50 MG/SENNA 8.6 MG TAB PO SCH ×2 (09:52→20:26)
[2016-07-07] MEDS: SODIUM CHLORIDE 0.9% FLUSH 5 ML FLUSH FLUSH SCH ×2 (09:52→20:26)
[2016-07-07] MEDS ORDERED: POTASSIUM CHLORIDE 10 MEQ CONTROLLED RELEASE TAB PO ONE (12:00)
[2016-07-07] MEDS: RESP: ALBUTEROL 2.5 MG/IPRATROPIUM 0.5 MG NEB (PRN) NEB ×3 (13:29→21:44)
[2016-07-07] MEDS ORDERED: CARD180C5 PO (13:40)
--- NOTE | 2016-07-07 13:44 | HHI.PR ---
Subjective Remarks Follow-up for pneumothorax No shortness of breath, almost back to normal, denies any chest pain. On nasal cannula, anxious, wants to go to rehabilitation, requesting for [facility]. Objective Vitals Vital Signs Date Time Temp Pulse Resp B/P Pulse Ox O2 Delivery O2 Flow Rate FiO2 07/07/16 08:23 96 Nasal Cannula 2.00 07/07/16 07:00 82 07/07/16 07:00 95 Nasal Cannula 2.00 07/07/16 07:00 98.6 84 18 103/61 95 07/07/16 06:00 80 07/07/16 05:00 77 07/07/16 04:00 78 07/07/16 03:34 98 Nasal Cannula 2.00 07/07/16 03:33 69 18 105/57 98 07/07/16 03:00 75 07/07/16 02:00 73 07/07/16 01:00 75 07/07/16 00:00 75 07/06/16 23:15 77 18 109/60 96 07/06/16 23:15 96 Nasal Cannula 2.00 07/06/16 23:00 74 07/06/16 22:00 75 07/06/16 21:00 76 07/06/16 20:00 77 07/06/16 19:30 99 Nasal Cannula 2.00 07/06/16 19:30 98.4 74 18 98/61 99 07/06/16 19:00 78 07/06/16 18:09 75 07/06/16 17:16 78 07/06/16 16:19 77 07/06/16 15:25 Nasal Cannula 2.00 21 07/06/16 15:25 98.3 80 20 128/87 95 07/06/16 15:25 74 07/06/16 14:00 74 I/O 07/06/16 07/06/16 07/06/16 07/07/16 07/07/16 07/07/16 07:00 15:00 23:00 07:00 15:00 23:00 Intake Total 405 ml 440 ml 300 ml Output Total 275 ml 700 ml Balance 130 ml 440 ml -400 ml Intake Oral 400 ml 440 ml 300 ml IV Total 5 ml Output Urine Total 275 ml 700 ml # Voids 2 3 # Bowel Movements 1 2 0 Result Diagram: 07/07/16 0415 07/07/16 0415 Objective Remarks GENERAL: Elderly male, sitting in bed, no respiratory distress . HEENT: Normocephalic, atraumatic. Pupils equally round and reactive. Mucous membranes are moist. NECK: Trachea is midline. No JVD CHEST: Clear breath sounds, CARDIOVASCULAR: Regular rate and rhythm. ABDOMEN: Obese, soft, nontender, moderately distended. No guarding. MUSCULOSKELETAL: Trace peripheral edema. Distal pulses 2+. A/P Assessment and Plan Assessment: This is a 70-year-old male with history of COPD and atrial fibrillation who was recently admitted and diagnosed with spontaneous pneumothorax, now recently status post removal of chest tubes, couse complicated by recurrent pneumothorax with tension physiology. Recurrent right-sided pneumothorax with tension physiology, acute respiratory failure Chest tube removed 07/05/16. Repeat chest x-ray reviewed, no pneumothorax. Discharge to rehabilitation once placement available. Continue duo nebs, continue low-dose prednisone. BMP and CBC within normal limits. Ulnar following Atrial fibrillation-continue Xarelto and Cardizem Bowel Regimen: --senna/colace BID --SCDs and home Xarelto for DVT prophylaxis Transfer to [facility]. Discharge Planning Discharge once placement available. Jose G Melara MD Jul 07, 2016 13:43
--- NOTE | 2016-07-07 18:51 | HHI.PR ---
Subjective Remarks 70 YOWM with COPD,PTX, s/p Chest tube Breathing much better Weaned to NC Denies sob Denies sob, mild chest discomfort CXR no PTX Objective Vital Signs Vital Signs Date Time Temp Pulse Resp B/P Pulse Ox O2 Delivery O2 Flow Rate FiO2 07/07/16 17:00 98.8 66 16 97/64 96 07/07/16 16:00 79 07/07/16 15:00 98.6 80 18 108/59 99 07/07/16 15:00 99 Nasal Cannula 2.00 07/07/16 15:00 76 07/07/16 14:00 81 07/07/16 13:00 83 07/07/16 12:00 80 07/07/16 11:00 98.4 82 18 96/59 99 07/07/16 11:00 99 Nasal Cannula 2.00 07/07/16 11:00 84 07/07/16 10:00 92 07/07/16 09:00 83 07/07/16 08:23 96 Nasal Cannula 2.00 07/07/16 08:00 82 07/07/16 07:00 82 07/07/16 07:00 95 Nasal Cannula 2.00 07/07/16 07:00 98.6 84 18 103/61 95 07/07/16 06:00 80 07/07/16 05:00 77 07/07/16 04:00 78 07/07/16 03:34 98 Nasal Cannula 2.00 07/07/16 03:33 69 18 105/57 98 07/07/16 03:00 75 07/07/16 02:00 73 07/07/16 01:00 75 07/07/16 00:00 75 07/06/16 23:15 77 18 109/60 96 07/06/16 23:15 96 Nasal Cannula 2.00 07/06/16 23:00 74 07/06/16 22:00 75 07/06/16 21:00 76 07/06/16 20:00 77 07/06/16 19:30 99 Nasal Cannula 2.00 07/06/16 19:30 98.4 74 18 98/61 99 07/06/16 19:00 78 I/O 1/14/17 1/14/17 1/14/17 1/15/17 1/15/17 1/15/17 07:00 15:00 23:00 07:00 15:00 23:00 Intake Total 405 ml 440 ml 300 ml 840 ml Output Total 275 ml 700 ml 1400 ml Balance 130 ml 440 ml -400 ml -560 ml Intake Oral 400 ml 440 ml 300 ml 840 ml IV Total 5 ml Output Urine Total 275 ml 700 ml 1400 ml # Voids 2 3 # Bowel Movements 1 2 0 3 Result Diagram: 07/07/1641407/07/16414 Objective Remarks GENERAL: WBWN WM, NAD SKIN: Warm and dry. HEAD: Normocephalic. EYES: No scleral icterus. No injection or drainage. NECK: Supple, trachea midline. No JVD or lymphadenopathy. CARDIOVASCULAR: Regular rate and rhythm without murmurs, gallops, or rubs. RESPIRATORY: Breath sounds equal bilaterally. No accessory muscle use. Two right chest tubes, has air leak GASTROINTESTINAL: Abdomen soft, non-tender, nondistended. MUSCULOSKELETAL: No cyanosis, or edema. BACK: Nontender without obvious deformity. No CVA tenderness. A/P Assessment and Plan Right PTX, s/p chest tubes COPD HTN AF Ca lung and Colon PLAN: Supplement 02 Cont Xarelto Pred 5 mg daily Xanax prn anxiety. Oxygen walk test [facility] evaluating for rehab. Jasen Zacarias MD Jul 07, 2016 18:51
[2016-07-07] MEDS: TAMSULOSIN HCL 0.4 MG CAP PO SCH (20:26)
[2016-07-07] MEDS: PRAVASTATIN SOD 80 MG TAB PO SCH (20:26)
[2016-07-08] VITALS (9 sets, daily range): BP systolic 100–121; BP diastolic 56–64; PULSE 70–89; RESP 16–22; TEMP 97.5–98.4; O2SAT 94–98
[2016-07-08] MEDS: INSULIN ASPART SUPPLEMENTAL SCALE SQ SCH ×4 (05:28→20:34)
[2016-07-08] MEDS: RIVAROXABAN 20 MG TAB PO SCH (08:37)
[2016-07-08] MEDS: guaiFENesin E.R. 600 MG TAB PO SCH ×2 (08:37→20:34)
[2016-07-08] MEDS: SENNOSIDES 8.6 MG TAB PO SCH (08:37)
[2016-07-08] MEDS: MAGNESIUM OXIDE 400 MG TAB PO SCH (08:38)
[2016-07-08] MEDS: POTASSIUM CHLORIDE 20 MEQ CONTROLLED RELEASE TAB PO SCH (08:38)
[2016-07-08] MEDS: DOCUSATE SODIUM 50 MG/SENNA 8.6 MG TAB PO SCH ×2 (08:38→20:34)
[2016-07-08] MEDS: FUROSEMIDE 40 MG TAB PO SCH (08:38)
[2016-07-08] MEDS: DILTIAZEM-CD 180 MG CAP ER PO SCH (08:38)
[2016-07-08] MEDS: predniSONE 5 MG TAB PO SCH (08:38)
[2016-07-08] MEDS: SODIUM CHLORIDE 0.9% FLUSH 5 ML FLUSH FLUSH SCH ×2 (08:39→20:32)
--- NOTE | 2016-07-08 09:11 | HHI.PR ---
Subjective Remarks Follow-up for shortness of breath Shortness of breath but better, but still gets winded when walking to the bathroom and back. No chest pain. Objective Vitals Vital Signs Date Time Temp Pulse Resp B/P Pulse Ox O2 Delivery O2 Flow Rate FiO2 07/08/16 04:20 97.7 72 19 100/59 96 07/08/16 00:00 97.7 79 20 107/64 95 07/07/16 21:44 97 Nasal Cannula 2.00 07/07/16 20:30 Nasal Cannula 2.00 21 07/07/16 20:04 76 07/07/16 20:00 96.8 58 21 119/58 96 07/07/16 17:00 98.8 66 16 97/64 96 07/07/16 16:00 79 07/07/16 15:00 98.6 80 18 108/59 99 07/07/16 15:00 99 Nasal Cannula 2.00 07/07/16 15:00 76 07/07/16 14:00 81 07/07/16 13:00 83 07/07/16 12:00 80 07/07/16 11:00 98.4 82 18 96/59 99 07/07/16 11:00 99 Nasal Cannula 2.00 07/07/16 11:00 84 07/07/16 10:00 92 I/O 07/07/16 07/07/16 07/07/16 07/08/16 07/08/16 07/08/16 07:00 15:00 23:00 07:00 15:00 23:00 Intake Total 300 ml 1080 ml 120 ml Output Total 700 ml 1700 ml 500 ml Balance -400 ml -620 ml -380 ml Intake Oral 300 ml 1080 ml 120 ml Output Urine Total 700 ml 1700 ml 500 ml # Bowel Movements 0 3 0 Result Diagram: 07/07/16 0415 07/07/16 0415 Objective Remarks GENERAL: Elderly male, sitting in bed, no respiratory distress . HEENT: Normocephalic, atraumatic. Pupils equally round and reactive. Mucous membranes are moist. NECK: Trachea is midline. No JVD CHEST: Clear breath sounds, CARDIOVASCULAR: Regular rate and rhythm. ABDOMEN: Obese, soft, nontender, moderately distended. No guarding. MUSCULOSKELETAL: Trace peripheral edema. Distal pulses 2+. A/P Assessment and Plan Assessment: This is a 70-year-old male with history of COPD and atrial fibrillation who was recently admitted and diagnosed with spontaneous pneumothorax, now recently status post removal of chest tubes, course complicated by recurrent pneumothorax with tension physiology. Recurrent right-sided pneumothorax with tension physiology, acute respiratory failure Chest tube removed 07/05/16. Repeat chest x-ray reviewed, no pneumothorax. Discharge to rehabilitation once placement available. Continue duo nebs, continue low-dose prednisone. BMP and CBC within normal limits. Pulmonary following. Atrial fibrillation-continue Xarelto and Cardizem Bowel Regimen: --senna/colace BID --SCDs and home Xarelto for DVT prophylaxis Doing okay, discharged to [facility] once p insurance has approved. Discharge Planning Discharge to [facility] once [employer] approves Jose G Melara MD Jul 08, 2016 09:11
--- NOTE | 2016-07-08 09:12 | HHI.DS ---
Discharge Summary Admission Date Jun 24, 2016 at 19:28 Discharge Date: Jul 08, 2016 Admitting Diagnosis Pneumothorax (1) Pneumothorax ICD Code: J93.9 Diagnosis: Principal Procedures Chest tube placement and removal Brief History - From Admission History from patient, ER physician communication, and review of medical records. Patient reported that he has been chronically short of breath for the past several months. However he stated yesterday, he also immediately noted that his O2 saturation were going down to the 70s. He stated he just was not reported to catch his breath and told his to call 911. He denies any fever. Denies hemoptysis. Patient attributed this to his constipation. He stated he was constipated all day long Has been sitting on the toilet all day long. He reports of history of emphysema. However is not sure whether he has bullous emphysema. Patient also has history of lung cancer bilaterally. However he did complete all treatments by 2013. In the emergency room, patient was found to have large right sided tension pneumothorax. Chest tube was placed by ER physician. Repeat chest x-ray post chest tube placement showed well expanded lungs. No complications. CBC/BMP: 07/07/16 0415 07/07/16 0415 Significant Findings Laboratory Tests Test 07/07/16 04:15 Red Blood Count 3.54 MIL/MM3 (4.50-5.90) Hemoglobin 11.3 GM/DL (13.0-17.0) Hematocrit 32.9 % (39.0-51.0) Platelet Count 124 TH/MM3 (150-450) Neutrophils (%) (Auto) 83.1 % (16.0-70.0) Lymphocytes (%) (Auto) 6.3 % (9.0-44.0) Lymphocytes # (Auto) 0.4 TH/MM3 (1.0-4.8) Platelet Estimate LOW (NORMAL) Ovalocytes 1+ (NORMAL) Potassium Level 3.2 MEQ/L (3.5-5.1) Carbon Dioxide Level 32.7 MEQ/L (21.0-32.0) Random Glucose 110 MG/DL (74-106) Imaging Last Impressions Chest X-Ray 07/05/16 1200 Signed Impressions: Service Date/Time: Tuesday, July 05, 2016 12:15 - CONCLUSION: Interval removal of a right-sided chest tube. No evidence of pneumothorax. Nora Jeffery MD Tunnelled Chest Tube Removal 07/04/16 0000 Signed Impressions: Service Date/Time: June 00:00 - CONCLUSION: Uncomplicated chest tube removal. Ryan Hillman MD Chest Tube Insertion 06/29/16 0000 Signed Impressions: Service Date/Time: Wednesday, June 29, 2016 20:27 - CONCLUSION: Uncomplicated chest tube placement as above. Ryan Hillman MD Chest CT 06/29/16 0000 Signed Impressions: Service Date/Time: Wednesday, June 29, 2016 13:14 - CONCLUSION: 1. Persistent loculated right pneumothorax. Chest tube is in the right base. 2. Given the amount of pleural thickening evident, the right lung may not re-expand. 3. I do not see any blebs. Does the patient have a persistent air leak? Thomas Dorsey MD FACR Abdomen/Pelvis CT 06/29/16 0000 Signed Impressions: Service Date/Time: Wednesday, June 29, 2016 13:14 - CONCLUSION: 1. Small right pneumothorax in spite of chest tube. 2. Dilatation of the left collecting system with dilated ureter extending down to within 4 cm of the bladder. Etiology for this dilatation is not appreciated. Thomas Dorsey MD FACR Abdomen X-Ray 06/29/16 0000 Signed Impressions: Service Date/Time: Wednesday, June 29, 2016 05:08 - CONCLUSION: No dilated loops of small or large bowel. Italo Hayes MD Chest Tube Change 06/26/16 0000 Signed Impressions: Service Date/Time: Sunday, June 26, 2016 14:41 - CONCLUSION: Uncomplicated chest tube exchange as above. Ryan Hillman MD PE at Discharge GENERAL: Elderly male, sitting in bed, no respiratory distress . HEENT: Normocephalic, atraumatic. Pupils equally round and reactive. Mucous membranes are moist. NECK: Trachea is midline. No JVD CHEST: Clear breath sounds, CARDIOVASCULAR: Regular rate and rhythm. ABDOMEN: Obese, soft, nontender, moderately distended. No guarding. MUSCULOSKELETAL: Trace peripheral edema. Distal pulses 2+. Hospital Course This is a 70-year-old male with history of COPD and atrial fibrillation who was recently admitted and diagnosed with spontaneous pneumothorax, 2 chest tubes were placed by interventional radiology. Pulmonary was consulted. Patient's respiratory status improved, chest x-rays and serial examinations were done. After several days, pigtail chest tube was removed. Finally, the other chest tube was removed 07/05/16. No further pneumothorax observed. Patient was discharged to rehabilitation. He will continue low-dose prednisone, Xarelto and Cardizem. Hospital stay was uneventful. Pt Condition on Discharge: Good Discharge Disposition: Rehab Inpatient Discharge Time: > 30 minutes Discharge Instructions DIET: Follow Instructions for: Heart Healthy Diet Activities you can perform: Regular-No Restrictions Follow up Referrals: SNF/[facility]/ - 2-3 Days New Medications: Diltiazem CD 24 HR (Cardizem CD 24 HR) 180 Mg Caper 360 MG PO DAILY afib #30 CAP Oxycodone (Oxycodone) 5 Mg Tab 5 MG PO Q4H PRN pain 1-5 Days 10 TAB Continued Medications: Albuterol 18 GM Inh (Ventolin Hfa 18 GM Inh) 90 Mcg/Act Aer 1-2 PUFF INH Q4-6H PRN SHORTNESS OF BREATH #1 Ref 0 INHALER Azelastine Nasal Salters (Azelastine Nasal Salters) 0.1% Salters 1 SPRAY EACH NARE DAILY Allergies #1 Ref 0 BOTTLE Cholecalciferol (Vitamin D3) 5,000 Unit Tab 5000 UNITS PO DAILY Nutritional Supplement #1 Ref 0 BOTTLE Coenzyme Q10 (Ubidecarenone) (Coq10) 200 Mg Cap 200 MG PO DAILY Cyanocobalamin (Vitamin B-12) 5,000 Mcg Tab 5000 MCG PO DAILY Furosemide (Lasix) 40 Mg Tab 40 MG PO DAILY #30 Ref 0 TAB Ipratropium-Albuterol Neb (Duoneb) 0.5-2.5 Mg/3 Ml Neb 1 VIAL NEB BID Breathing Treatment #30 Ref 0 NEBULE Magnesium Oxide (Magnesium Oxide) 400 Mg Tab 400 MG PO DAILY Nutritional Supplement Ref 0 TAB Multiple Vitamin (Multi Vitamin) 1 Tab Tab 1 TAB PO DAILY TAB Potassium Chloride ER (Potassium Chloride ER) 20 Meq Tab 20 MEQ PO DAILY Electrolyte Replacement #30 Ref 0 TAB Prednisone (Prednisone) 5 Mg Tab 5 MG PO DAILY Ref 0 TAB Rivaroxaban (Xarelto) 20 Mg Tab 20 MG PO DAILY Blood Clot Prevention Ref 0 TAB Simvastatin (Zocor) 40 Mg Tab 40 MG PO HS Cholesterol Management #30 Ref 0 TAB Tamsulosin (Tamsulosin) 0.4 Mg Cap 0.4 MG PO HS Manage Prostate Problems #30 Ref 0 CAP Umeclidinium-Vilanterol Inh (Anoro Ellipta Inh) 62.5-25 Mcg/Act Aero 1 PUFF INH DAILY COPD #1 Ref 0 INHALER Discontinued Medications: Diltiazem CD 24 HR (Diltiazem CD 24 HR) 180 Mg Caper 180 MG PO DAILY #30 Ref 0 CAP Jose G Melara MD Jul 08, 2016 09:12 Simvastatin (Zocor) 40 Mg Tab 40 MG PO HS Cholesterol Management #30 Ref 0 TAB Tamsulosin (Tamsulosin) 0.4 Mg Cap 0.4 MG PO HS Manage Prostate Problems #30 Ref 0 CAP Umeclidinium-Vilanterol Inh (Anoro Ellipta Inh) 62.5-25 Mcg/Act Aero 1 PUFF INH DAILY COPD #1 Ref 0 INHALER Discontinued Medications: Diltiazem CD 24 HR (Diltiazem CD 24 HR) 180 Mg Caper 180 MG PO DAILY #30 Ref 0 CAP Jose G Melara MD Jul 08, 2016 09:12
--- NOTE | 2016-07-08 18:02 | HHI.PR ---
Subjective Remarks 70 YOWM with COPD,PTX, s/p Chest tube Breathing much better Weaned to NC Denies sob Denies sob, mild chest discomfort Breathing better Objective Vital Signs Vital Signs Date Time Temp Pulse Resp B/P Pulse Ox O2 Delivery O2 Flow Rate FiO2 07/08/16 18:00 96 Nasal Cannula 2.00 07/08/16 15:53 98.4 76 16 106/56 96 07/08/16 12:00 97.5 89 18 106/61 96 07/08/16 11:18 94 Nasal Cannula 2.00 07/08/16 08:00 Nasal Cannula 2.00 21 07/08/16 08:00 97.5 87 19 121/64 95 07/08/16 04:20 97.7 72 19 100/59 96 07/08/16 00:00 97.7 79 20 107/64 95 07/07/16 21:44 97 Nasal Cannula 2.00 07/07/16 20:30 Nasal Cannula 2.00 21 07/07/16 20:04 76 07/07/16 20:00 96.8 58 21 119/58 96 I/O 07/07/16 07/07/16 07/07/16 07/08/16 07/08/16 07/08/16 07:00 15:00 23:00 07:00 15:00 23:00 Intake Total 300 ml 1080 ml 120 ml 600 ml Output Total 700 ml 1700 ml 500 ml 200 ml Balance -400 ml -620 ml -380 ml 400 ml Intake Oral 300 ml 1080 ml 120 ml 600 ml Output Urine Total 700 ml 1700 ml 500 ml 200 ml # Voids 3 # Bowel Movements 0 3 0 0 Result Diagram: 07/07/16 0415 07/07/16 0415 Objective Remarks GENERAL: WBWN WM, NAD SKIN: Warm and dry. HEAD: Normocephalic. EYES: No scleral icterus. No injection or drainage. NECK: Supple, trachea midline. No JVD or lymphadenopathy. CARDIOVASCULAR: Regular rate and rhythm without murmurs, gallops, or rubs. RESPIRATORY: Breath sounds equal bilaterally. No accessory muscle use. Two right chest tubes, has air leak GASTROINTESTINAL: Abdomen soft, non-tender, nondistended. MUSCULOSKELETAL: No cyanosis, or edema. BACK: Nontender without obvious deformity. No CVA tenderness. A/P Assessment and Plan Right PTX, s/p chest tubes COPD HTN AF Ca lung and Colon PLAN: Supplement 02 Cont Xarelto Pred 5 mg daily Xanax prn anxiety. Oxygen walk test DC plans underway. Jasen Zacarias MD Jul 08, 2016 18:02
[2016-07-08] MEDS: TAMSULOSIN HCL 0.4 MG CAP PO SCH (20:33)
[2016-07-08] MEDS: PRAVASTATIN SOD 80 MG TAB PO SCH (20:34)
[2016-07-08] MEDS: RESP: ALBUTEROL 2.5 MG/IPRATROPIUM 0.5 MG NEB (PRN) NEB (20:57)
[2016-07-09] VITALS: BP 108/62; PULSE 77; RESP 20; TEMP 97.1; O2SAT 96
[2016-07-09 04:00] VITALS: BP 114/66; PULSE 76; RESP 20; TEMP 97.7; O2SAT 96
[2016-07-09] MEDS: INSULIN ASPART SUPPLEMENTAL SCALE SQ SCH ×2 (05:14→12:21)
[2016-07-09 08:00] VITALS: BP 101/56; PULSE 77; RESP 17; TEMP 98.1; O2SAT 95
[2016-07-09] MEDS: MAGNESIUM OXIDE 400 MG TAB PO SCH (08:33)
[2016-07-09] MEDS: DILTIAZEM-CD 180 MG CAP ER PO SCH (08:33)
[2016-07-09] MEDS: guaiFENesin E.R. 600 MG TAB PO SCH (08:33)
[2016-07-09] MEDS: SENNOSIDES 8.6 MG TAB PO SCH (08:33)
[2016-07-09] MEDS: POTASSIUM CHLORIDE 20 MEQ CONTROLLED RELEASE TAB PO SCH (08:34)
[2016-07-09] MEDS: predniSONE 5 MG TAB PO SCH (08:34)
[2016-07-09] MEDS: SODIUM CHLORIDE 0.9% FLUSH 5 ML FLUSH FLUSH SCH (08:34)
[2016-07-09] MEDS: DOCUSATE SODIUM 50 MG/SENNA 8.6 MG TAB PO SCH (08:34)
[2016-07-09] MEDS: FUROSEMIDE 40 MG TAB PO SCH (08:34)
[2016-07-09] MEDS: RIVAROXABAN 20 MG TAB PO SCH (08:41)
[2016-07-09 09:17] VITALS: O2SAT 94
--- NOTE | 2016-07-09 11:12 | HHI.PR ---
Subjective Remarks 70 YOWM with COPD,PTX, s/p Chest tube Breathing much better Weaned to NC Denies sob Denies sob, mild chest discomfort Breathing better Did't sleep well last night Objective Vital Signs Vital Signs Date Time Temp Pulse Resp B/P Pulse Ox O2 Delivery O2 Flow Rate FiO2 07/09/16 09:17 94 Nasal Cannula 2.00 07/09/16 08:45 95 Nasal Cannula 2.00 07/09/16 08:00 98.1 77 17 101/56 95 07/09/16 04:00 97.7 76 20 114/66 96 07/09/16 00:00 97.1 77 20 108/62 96 07/08/16 20:45 75 07/08/16 20:30 Nasal Cannula 2.00 07/08/16 20:00 98.1 70 22 115/58 98 07/08/16 18:00 96 Nasal Cannula 2.00 07/08/16 15:53 98.4 76 16 106/56 96 07/08/16 12:00 97.5 89 18 106/61 96 07/08/16 11:18 94 Nasal Cannula 2.00 I/O 07/08/16 07/08/16 07/08/16 07/09/16 07/09/16 07/09/16 06:59 14:59 22:59 06:59 14:59 22:59 Intake Total 120 ml 600 ml 320 ml 320 ml Output Total 500 ml 200 ml 300 ml 800 ml Balance -380 ml 400 ml 20 ml -480 ml Intake Oral 120 ml 600 ml 320 ml 320 ml Output Urine Total 500 ml 200 ml 300 ml 800 ml # Voids 3 2 # Bowel Movements 0 0 1 0 Result Diagram: 07/07/1641407/07/16414 Objective Remarks GENERAL: WBWN WM, NAD SKIN: Warm and dry. HEAD: Normocephalic. EYES: No scleral icterus. No injection or drainage. NECK: Supple, trachea midline. No JVD or lymphadenopathy. CARDIOVASCULAR: Regular rate and rhythm without murmurs, gallops, or rubs. RESPIRATORY: Breath sounds equal bilaterally. No accessory muscle use. Two right chest tubes, has air leak GASTROINTESTINAL: Abdomen soft, non-tender, nondistended. MUSCULOSKELETAL: No cyanosis, or edema. BACK: Nontender without obvious deformity. No CVA tenderness. A/P Assessment and Plan Right PTX, s/p chest tubes COPD HTN AF Ca lung and Colon PLAN: Supplement 02 Cont Xarelto Pred 5 mg daily Xanax prn anxiety. Change chest tube site dressing DC plans underway.for PO rehab Jasen Zacarias MD Jul 09, 2016 11:12
[2016-07-09 12:00] VITALS: BP 106/63; PULSE 75; RESP 17; TEMP 98.2; O2SAT 95
--- NOTE | 2016-07-09 13:34 | HHI.PR ---
Subjective Remarks Follow-up for pneumothorax No chest pain, no shortness of breath. On oxygen 2 L NC Objective Vitals Vital Signs Date Time Temp Pulse Resp B/P Pulse Ox O2 Delivery O2 Flow Rate FiO2 07/09/16 12:00 98.2 75 17 106/63 95 07/09/16 09:17 94 Nasal Cannula 2.00 07/09/16 08:45 95 Nasal Cannula 2.00 07/09/16 08:00 98.1 77 17 101/56 95 07/09/16 04:00 97.7 76 20 114/66 96 07/09/16 00:00 97.1 77 20 108/62 96 07/08/16 20:45 75 07/08/16 20:30 Nasal Cannula 2.00 07/08/16 20:00 98.1 70 22 115/58 98 07/08/16 18:00 96 Nasal Cannula 2.00 07/08/16 15:53 98.4 76 16 106/56 96 I/O 07/08/16 07/08/16 07/08/16 07/09/16 07/09/16 07/09/16 06:59 14:59 22:59 06:59 14:59 22:59 Intake Total 120 ml 600 ml 320 ml 320 ml Output Total 500 ml 200 ml 300 ml 800 ml Balance -380 ml 400 ml 20 ml -480 ml Intake Oral 120 ml 600 ml 320 ml 320 ml Output Urine Total 500 ml 200 ml 300 ml 800 ml # Voids 3 2 # Bowel Movements 0 0 1 0 Result Diagram: 07/07/165 07/07/16414 Objective Remarks GENERAL: Elderly male, sitting in bed, no respiratory distress . HEENT: Normocephalic, atraumatic. Pupils equally round and reactive. Mucous membranes are moist. NECK: Trachea is midline. No JVD CHEST: Clear breath sounds, CARDIOVASCULAR: Regular rate and rhythm. ABDOMEN: Obese, soft, nontender, moderately distended. No guarding. MUSCULOSKELETAL: Trace peripheral edema. Distal pulses 2+. AAOx3, no focal deficits Procedures Chest tube placement and removal A/P Problem List: (1) Pneumothorax ICD Code: J93.9 Status: Acute Assessment and Plan Assessment: This is a 70-year-old male with history of COPD and atrial fibrillation who was recently admitted and diagnosed with spontaneous pneumothorax, now recently status post removal of chest tubes, course complicated by recurrent pneumothorax with tension physiology. Recurrent right-sided pneumothorax with tension physiology, acute respiratory failure Chest tube removed 07/05/16. Repeat chest x-ray reviewed, no pneumothorax. Discharge to rehabilitation once placement available. Continue duo nebs, continue low-dose prednisone. BMP and CBC within normal limits. Patient declined by [facility], discharged to [facility] and rehabilitation today Atrial fibrillation-continue Xarelto and Cardizem Bowel Regimen: --senna/colace BID --SCDs and home Xarelto for DVT prophylaxis Doing okay, discharged to [facility] once p insurance has approved. Discharge Planning Discharge to rehabilitation Problem Qualifiers (1) Pneumothorax: Qualified Code: J93.11 - Primary spontaneous pneumothorax Jose G Melara MD Jul 09, 2016 13:34
== END 2016-07-09 14:33 | DRG 199 ==
LOC: NEPE 16:08 → NEDA 19:28 → NEDH 23:28 → N03A 06-25 16:37 → N05A 06-26 14:03 → N03A 06-28 18:01 → HCVR 06-30 12:23 → HCPC 07-06 06:15 → N07A 07-07 16:51
PROVIDERS: ADMIT Hospitalist; ATTEND Hospitalist
PROC: 0W9930Z Drainage of Right Pleural Cavity with Drainage Device, Percutaneous Approach (ICD-10-PCS; principal; 2016-06-28)
DX: J93.0 Spontaneous tension pneumothorax (principal); J96.01 Acute respiratory failure with hypoxia; J90 Pleural effusion, not elsewhere classified; E11.22 Type 2 diabetes mellitus with diabetic chronic kidney disease; D69.6 Thrombocytopenia, unspecified; I48.91 Unspecified atrial fibrillation; N13.5 Crossing vessel and stricture of ureter without hydronephrosis; J44.9 Chronic obstructive pulmonary disease, unspecified; I12.9 Hypertensive chronic kidney disease with stage 1 through stage 4 chronic kidney disease, or unspecified chronic kidney disease; K59.00 Constipation, unspecified; N18.9 Chronic kidney disease, unspecified; Z79.01 Long term (current) use of anticoagulants; Z92.21 Personal history of antineoplastic chemotherapy; Z92.3 Personal history of irradiation; Z85.118 Personal history of other malignant neoplasm of bronchus and lung; Z85.038 Personal history of other malignant neoplasm of large intestine; D64.9 Anemia, unspecified; J93.82 Other air leak; Y84.2 Radiological procedure and radiotherapy as the cause of abnormal reaction of the patient, or of later complication, without mention of misadventure at the time of the procedure; E66.9 Obesity, unspecified; F41.9 Anxiety disorder, unspecified; Z87.891 Personal history of nicotine dependence; Z90.2 Acquired absence of lung [part of]; Z90.49 Acquired absence of other specified parts of digestive tract; Z93.3 Colostomy status; Z80.3 Family history of malignant neoplasm of breast
CPT/HCPCS: 32551; 32554; 36600; 71010; 71250; 74000; 74176; 80048; 80053; 82805; 82948; 83036; 83735; 83880; 84484; 85025; 85027; 85379; 85610; 85730; 87070; 87205; 87641; 93005; 94150; 94620; 94640; 94664; 99152; 99153; C1729; C1769; J0330; J1815; J1940; J2060; J2212; J2250; J3010; J7512

== ENCOUNTER 2016-12-02 11:12 | Emergency (ER) | payer OTHER ==
[~2016-12-02] VITALS: Ht 185.4 cm; Wt 112.0 kg
[~2016-12-02 11:12] MED LIST changes: -AZEL0.05 EACH NARE; +AZEL1SPR2 EACH NARE; -B12-1CHW CHEW; +CARD180C5 PO; +CHOL50008 PO; +COQ1200C PO; -COQ1200C3 PO; +CYAN1TAB22 PO; -DILT180C56 PO; -FISH500C PO; +FURO1TAB60 PO; -FURO40TA PO; +IPRASOL NEB; -MAGN400T PO; +MAGN400T2 PO; +MULT-135 PO; +OXYC-392 PO; +POTA-163 PO; -POTA10IN2 PO; -RIVA20 PO; -SIMV10TA PO; +TAMS0.4C4 PO; -VITA100C6 PO; -VITA400C28 PO; +XARE20TA PO; +ZOCO40TA PO
[2016-12-02 11:27] VITALS: BP 113/61; PULSE 82; RESP 27; TEMP 99; O2SAT 95
[2016-12-02] MEDS ORDERED: D31000TA PO (11:51)
[2016-12-02] MEDS ORDERED: COQ-100C5 PO (11:51)
[2016-12-02] MEDS ORDERED: PRED5TAB PO (11:51)
[2016-12-02] MEDS ORDERED: MULTTAB77 PO (11:51)
[2016-12-02] MEDS ORDERED: CYAN1TAB24 PO (11:51)
--- NOTE | 2016-12-02 11:52 | PD ---
HPI Chief Complaint: Abnormal Results Time Seen by Provider: 11:45 Travel History International Travel<30 days: No Contact w/Intl Traveler<30days: No Traveled to known affect area: No History of Present Illness HPI Patient comes in at the advice of his oncologist Dr. Shoemaker office for reported abnormal lab values. Patient states he's been feeling kind of "blah" since the end of July. Patient reports a 20 pound weight loss and feeling more tired than normal. Patient denies any chest pain, nausea, vomiting, loss or change in bowel or bladder, cough, abdominal pain, or headaches. Patient states temperature at home has been 99.9 at the highest and having intermittent shortness of breath. Patient reports last chemoradiation was 2013. Has a history of colon and lung cancer. PFSH Past Medical History Hx Anticoagulant Therapy: Yes Arthritis: Yes Asthma: Yes Atrial Fibrillation: Yes Blood Disorders: Yes (LOW PLATELETS) Anxiety: Yes Depression: No Heart Rhythm Problems: Yes (A-FIB) Cancer: Yes (COLON, LEFT LUNG) Cardiovascular Problems: Yes (AFIB) High Cholesterol: Yes Chemotherapy: Yes (COMPLETED IN NOVEMBER 2013) Chest Pain: Yes Congestive Heart Failure: No COPD: Yes Coronary Artery Disease: Yes Diabetes: Yes (BORDERLINE) Patient Takes Glucophage: No Endocrine: No Gastrointestinal Disorders: Yes (COLON CANCER HX) GERD: No Genitourinary: No Hepatitis: No Hiatal Hernia: No Hypertension: Yes Immune Disorder: No Implanted Vascular Access Dvce: Yes (INFUSAPORT RT CHEST PER PT (FINISHED CHEMO IN NOVEMBER 2013)) Musculoskeletal: Yes (ARTHRITIS IN ANKLES ) Neurologic: Yes (HEADACHES) Psychiatric: No Reproductive: No Respiratory: Yes (COPD) Myocardial Infarction: No Radiation Therapy: Yes (RAD FINISHED JAN 27 2014) Seizures: No Sleep Apnea: No Thyroid Disease: No Ulcer: No Past Surgical History Abdominal Surgery: Yes (COLON RESECTION/ COLOSTOMY/ COLOS. CLOSURE) AICD: No Arteriovenous Shunt: No Cardiac Surgery: No Ear Surgery: No Endocrine Surgery: No Eye Surgery: No Genitourinary Surgery: No Gynecologic Surgery: No Insulin Pump: No Joint Replacement: No Oral Surgery: No Pacemaker: No Thoracic Surgery: Yes (HIATAL HERNIA REP.2008) Other Surgery: Yes Social History Alcohol Use: No Tobacco Use: No (QUIT 16 YRS AGO) Substance Use: No Allergies-Medications (Allergen,Severity, Reaction): Coded Allergies: Adhesives (Verified Allergy, Severe, Rash, 12/02/16) Contrast Media (Verified Allergy, Severe, Hives, 12/02/16) Reported Meds & Prescriptions Reported Meds & Active Scripts Active Cardizem CD 24 HR (Diltiazem CD 24 HR) 180 Mg Caper 360 Mg PO DAILY Reported Prednisone 5 Mg Tab 5 Mg PO EVERY OTHER DAY D3 (Cholecalciferol) 1,000 Unit Tab 5 PO DAILY Coq-10 Tr (Coenzyme Q10 (Ubidecarenone)) 100 Mg Cap 2 Cap PO DAILY B12 (Cyanocobalamin) 1,000 Mcg Tab 5,000 PO DAILY Multi-Day (Multiple Vitamins W/ Iron) 1 Tab Tab PO DAILY Xarelto (Rivaroxaban) 20 Mg Tab 20 Mg PO DAILY Ventolin Hfa 18 GM Inh (Albuterol Sulfate) 90 Mcg/Act Aer 1-2 Puff INH Q4-6H PRN Tamsulosin (Tamsulosin HCl) 0.4 Mg Cap 0.4 Mg PO HS Potassium Chloride ER (Potassium Chloride) 20 Meq Tab 20 Meq PO DAILY Magnesium Oxide 400 Mg Tab 400 Mg PO DAILY Duoneb (Ipratropium-Albuterol Neb) 0.5-2.5 Mg/3 Ml Neb 1 Vial NEB QID PRN Lasix (Furosemide) 40 Mg Tab 40 Mg PO DAILY Azelastine Nasal [place] (Azelastine HCl) 0.1% [place] 1 [place] EACH NARE DAILY Review of Systems Except as stated in HPI: all other systems reviewed are Neg Physical Exam Narrative GENERAL: Well-developed, overly nourished, in no acute distress, and non-ill appearing. SKIN: Focused skin assessment warm and dry. HEAD: Atraumatic. Normocephalic. EYES: Pupils equal and round. EOMI. No scleral icterus. No injection or drainage. ENT: No nasal bleeding or discharge. Mucous membranes pink and moist. NECK: Trachea midline. No JVD. Supple. No nuclear rigidity. CARDIOVASCULAR: Regular rate and rhythm. No murmur appreciated. RESPIRATORY: No accessory muscle use. No respiratory distress. Scant wheezing noted left upper and lower lobe. GASTROINTESTINAL: Abdomen soft, non-tender, nondistended. Hepatic and splenic margins not palpable. Normal bowel sounds 4. No pulsatile mass. MUSCULOSKELETAL: No obvious deformities. No clubbing. No cyanosis. No edema. Full range of motion. NEUROLOGICAL: Awake and alert. No obvious cranial nerve deficits. Motor grossly within normal limits. Normal speech. PSYCHIATRIC: Appropriate mood and affect; insight and judgment normal. Data Data Last Documented VS Vital Signs Date Time Temp Pulse Resp B/P Pulse Ox O2 Delivery O2 Flow Rate FiO2 12/02/16 14:26 78 15 58/ 94 Nasal Cannula 12/02/16 13:00 2 12/02/16 11:27 99.0 Orders Electrocardiogram (12/02/16 11:42) Complete Blood Count With Diff (12/02/16 11:42) Comprehensive Metabolic Panel (12/02/16 11:42) Prothrombin Time / Inr (Pt) (12/02/16 11:42) Act Partial Throm Time (Ptt) (12/02/16 11:42) Lactic Acid Sepsis Protocol (12/02/16 11:42) Magnesium (Mg) (12/02/16 11:42) Lipase (12/02/16 11:42) Urinalysis - C+S If Indicated (12/02/16 11:42) Blood Culture (12/02/16 11:42) Chest, Single Ap (12/02/16 11:42) Ecg Monitoring (12/02/16 11:42) Iv Access Insert/Monitor (12/02/16 11:42) Oximetry (12/02/16 11:42) Oxygen Administration (12/02/16 11:42) Potassium Chloride (Kcl) (12/02/16 13:30) Labs Laboratory Tests Test 12/02/16 12/02/16 12/02/16 11:59 12:00 12:35 Prothrombin Time 14.2 SEC Prothromb Time International 1.3 RATIO Ratio Activated Partial 31.3 SEC Thromboplast Time Sodium Level 135 MEQ/L Potassium Level 3.0 MEQ/L Chloride Level 97 MEQ/L Carbon Dioxide Level 29.3 MEQ/L Anion Gap 9 MEQ/L Blood Urea Nitrogen 11 MG/DL Creatinine 0.88 MG/DL Estimat Glomerular Filtration 86 ML/MIN Rate Random Glucose 109 MG/DL Calcium Level 9.4 MG/DL Magnesium Level 1.8 MG/DL Total Bilirubin 2.4 MG/DL Aspartate Amino Transf 12 U/L (AST/SGOT) Alanine Aminotransferase 14 U/L (ALT/SGPT) Alkaline Phosphatase 80 U/L Total Protein 7.3 GM/DL Albumin 3.4 GM/DL Lipase 81 U/L White Blood Count 2.4 TH/MM3 Red Blood Count 2.61 MIL/MM3 Hemoglobin 8.1 GM/DL Hematocrit 24.5 % Mean Corpuscular Volume 93.6 FL Mean Corpuscular Hemoglobin 30.8 PG Mean Corpuscular Hemoglobin 33.0 % Concent Red Cell Distribution Width 22.2 % Platelet Count 111 TH/MM3 Mean Platelet Volume 11.4 FL Neutrophils (%) (Auto) 70.2 % Lymphocytes (%) (Auto) 18.0 % Monocytes (%) (Auto) 7.8 % Eosinophils (%) (Auto) 3.6 % Basophils (%) (Auto) 0.4 % Neutrophils # (Auto) 1.7 TH/MM3 Lymphocytes # (Auto) 0.4 TH/MM3 Monocytes # (Auto) 0.2 TH/MM3 Eosinophils # (Auto) 0.1 TH/MM3 Basophils # (Auto) 0.0 TH/MM3 CBC Comment AUTO DIFF Differential Total Cells 100 Counted Neutrophils % (Manual) 50 % Band Neutrophils % 19 % Lymphocytes % 19 % Monocytes % 5 % Eosinophils % 3 % Basophils % 2 % Neutrophils # (Manual) 1.7 TH/MM3 Metamyelocytes 1 % Myelocytes 1 % Nucleated Red Blood Cells 2 /100 WBC Differential Comment FINAL DIFF MANUAL Toxic Granulation 1+ Platelet Estimate LOW Platelet Morphology Comment ENLARGED Ovalocytes 1+ Acanthocytes OCC Keratocytes OCC Lactic Acid Level 1.4 mmol/L Urine Color LIGHT-YELLOW Urine Turbidity CLEAR Urine pH 7.5 Urine Specific [place] 1.006 Urine Protein NEG mg/dL Urine Glucose (UA) NEG mg/dL Urine Ketones NEG mg/dL Urine Occult Blood NEG Urine Nitrite NEG Urine Bilirubin NEG Urine Urobilinogen LESS THAN 2.0 MG/DL Urine Leukocyte Esterase NEG Urine RBC LESS THAN 1 /hpf Urine WBC 1 /hpf Urine Squamous Epithelial <1 /hpf Cells Microscopic Urinalysis Comment CATH-CULT NOT IND MDM Medical Decision Making Medical Screen Exam Complete: Yes Emergency Medical Condition: Yes Interpretation(s) EKG reviewed by Dr. Rucker shows atrial fibrillation with ventricular rate of 80. No STEMI. Chest x-ray read by the radiologist shows: Old healed rib fractures and pleural thickening on the left. Prominence of the right alona with retraction suggesting previous radiation therapy. Stable compared to previous exam. Differential Diagnosis Pneumonia, electrolyte abnormality, anemia, metastatic disease, other Narrative Course Patient seen and examined. Initial laboratory reflexes were obtained and reviewed. Patient potassium was replaced.Discussed Dr. Shoemaker's recommendation with patient and his , who is comfortable going home and will return to the emergency department for any change in symptoms, fevers, or other concerns. Patient in no obvious distress upon re-evaluation. All pertinent laboratory/ Radiology result(s) discussed with patient/family. Discussed patient with Dr. Estes prior to discharge, who is in agreement with plan of care and disposition. Any questions/concerns in reference to patient diagnosis/ condition discussed and clarified prior to patient's discharge. Reinforced sheer importance of close follow up with patient's primary physician or primary care clinic. Instructed patient to return to ED immediately, if symptoms return/ worsen. Pt showed understanding of above instructions. Further instructions and recommendations were detailed in discharge paperwork. Pt ambulated without difficulty out of ED at discharge. Physician Communication Physician Communication [phone] Patiño on his cell phone and discussed patient with Dr. Shoemaker , who is the patient's oncologist, and reviewed all the patient's lab work with him as well as patient's complaint and reviewed patient's vital signs within. Dr. Shoemaker is uncertain as to why the patient's white blood cell count is low, but feels patient is stable for outpatient follow-up in his office where he can figure out there. Diagnosis Primary Impression: Fatigue Qualified Code: R53.83 - Fatigue, unspecified type Additional Impression: Leukopenia Qualified Code: D72.819 - Leukopenia, unspecified type Additional Instructions: Follow-up with your oncologist as scheduled. Return to the emergency department if symptoms get worse. Disposition: 01 DISCHARGE HOME Condition: Stable Venkat Carpenter Dec 02, 2016 11:52
[2016-12-02 11:56] VITALS: O2SAT 94
[2016-12-02 12:17] LABS: AUTOMATED NEUTROPHIL # 1.7 TH/MM3 (1.8-7.7); BASOPHIL % 0.4 % (0.0-2.0); EOSINOPHIL # 0.1 TH/MM3 (0-0.4); EOSINOPHIL % 3.6 % (0.0-4.0); HEMATOCRIT 24.5 % (39.0-51.0); LYMPHOCYTE # 0.4 TH/MM3 (1.0-4.8); MEAN CELL VOLUME 93.6 FL (80.0-100.0); MEAN CORPUSCULAR HEMOGLOBIN 30.8 PG (27.0-34.0); MONO % 7.8 % (0.0-8.0); NEUT % 70.2 % (16.0-70.0); PLATELET COUNT 111 TH/MM3 (150-450); RED BLOOD COUNT 2.61 MIL/MM3 (4.50-5.90); RED CELL DISTRIBUTION WIDTH 22.2 % (11.6-17.2); WHITE BLOOD COUNT 2.4 TH/MM3 (4.0-11.0)
--- NOTE | 2016-12-02 12:17 | RADRPT ---
EXAM DATE/TIME: 12/02/2016 11:58 [facility] COMPARISON: CT THORAX W/O CONTRAST, June 29, 2016, 13:14. CHEST SINGLE AP, July 05, 2016, 12:15. INDICATIONS : Shortness of breath. MEDICAL HISTORY : Carcinoma, colon. Carcinoma, lung. SURGICAL HISTORY : Lobectomy. ENCOUNTER: Initial ACUITY: 4 - 6 days PAIN SCORE: 0/10 LOCATION: Bilateral chest FINDINGS: There is blunting of the costophrenic recess on the left. There diffuse chronic appearing interstitia l changes. The heart is normal in size. There is retraction and fibrosis in the right alona suggesting previous radiation therapy. The lungs appear stable compared to previous examination. There multiple old, healed rib fractures on the left. CONCLUSION: 1. Old healed rib fractures and pleural thickening on the left. Prominence of the right alona with ret raction suggesting previous radiation therapy. Stable compared to previous exam. Aron Dorsey MD on December 02, 2016 at 12:13 Board Certified Radiologist. This report was verified electronically.
[2016-12-02 12:27] LABS: HEMO FLAGS AUTO DIFF
[2016-12-02 12:27] LABS: APTT (PATIENT) 31.3 SEC (24.3-30.1); INTERNATIONAL NORMALIZED RATIO 1.3 RATIO; PROTHROMBIN TIME - PATIENT 14.2 SEC (9.8-11.6)
[2016-12-02 12:35] LABS: ANION GAP 9 MEQ/L (5-15); AST (GOT) 12 U/L (15-37); BICARBONATE 29.3 MEQ/L (21.0-32.0); BLOOD UREA NITROGEN 11 MG/DL (7-18); CHLORIDE 97 MEQ/L (98-107); GLOMERULAR FILTRATION RATE 86 ML/MIN (>89); MAGNESIUM 1.8 MG/DL (1.5-2.5); SODIUM (NA) 135 MEQ/L (136-145)
[2016-12-02 12:36] LABS: ALT (GPT) 14 U/L (12-78)
[2016-12-02 12:39] LABS: ALKALINE PHOSPHATASE 80 U/L (45-117); TOTAL BILIRUBIN ADULT 2.4 MG/DL (0.2-1.0)
[2016-12-02 12:43] VITALS: BP 107/57; PULSE 77; RESP 22; O2SAT 96
[2016-12-02 12:53] LABS: BLOOD, URINE NEG (NEG); GLUCOSE,URINE NEG (NEG); KETONE, URINE NEG (NEG); NITRITE,URINE NEG (NEG); PH, URINE 7.5 (5.0-8.5); SQUAMOUS EPITHELIAL CELL URINE <1 /hpf (0-5); URINE COLOR LIGHT-YELLOW (YELLW/STRAW)
[2016-12-02 12:54] LABS: COMMENT (UR) CATH-CULT NOT IND; CULTURE IF INDICATED CATH CULTURE NOT IND
[2016-12-02 13:00] VITALS: BP 111/56; PULSE 76; RESP 19; O2SAT 98
[2016-12-02 13:17] LABS: BANDS 19 % (0-6); BASOPHILS 2 % (0-2); CORRECTED NUCLEATED RBC 2 /100 WBC (0-0); EOSINOPHILS 3 % (0-4); METAMYELOCYTES 1 % (0-1); MYELOCYTES 1 % (0-0); NEUTROPHIL # MANUAL DIFF 1.7 TH/MM3 (1.8-7.7); POLYS (SEG NEUTROPHILS) 50 % (16-70); WBC DIFF SAMPLE 100
[2016-12-02 13:19] LABS: OVALOCYTES 1+ (NORMAL)
[2016-12-02 13:20] LABS: ACANTHOCYTES OCC (NORMAL); KERATOCYTES OCC (NORMAL); PLATELET ESTIMATE SMEAR LOW (NORMAL); PLATELET MORPHOLOGY ENLARGED (NORMAL)
[2016-12-02 13:21] LABS: SCAN/DIFF FINAL DIFF MANUAL; TOXIC GRANULATION 1+ (NORMAL)
[2016-12-02] MEDS ORDERED: POTASSIUM CHLORIDE 20 MEQ CONTROLLED RELEASE TAB PO ONE (13:30)
[2016-12-02 14:26] VITALS: BP_SYST 58; PULSE 78; RESP 15; O2SAT 94
--- NOTE | 2016-12-02 15:14 | EKG ---
Date Performed: 12/02/2016 Time Performed: 12:03:36 PTAGE: 71 years EKG: BASELINE ARTIFACT PRESENT. Unclear underlying rhythm, either Sinus rhythm with premature atrial contractions or atrial fibrillation. MARKED LEFT AXIS DEVIATION INTRAVENTRICUL AR CONDUCTION DELAY ABNORMAL ECG PREVIOUS TRACING : 06/29/2016 14.09 DOCTOR: Kevyn Sloan Interpretating Date/Time 12/02/2016 15:13:05
== END 2016-12-02 14:35 | disposition home or self-care (01) ==
LOC: NEPC 11:12
DX: R53.83 Other fatigue (principal); D72.819 Decreased white blood cell count, unspecified; R06.02 Shortness of breath; I10 Essential (primary) hypertension; I25.10 Atherosclerotic heart disease of native coronary artery without angina pectoris; I48.91 Unspecified atrial fibrillation; J44.9 Chronic obstructive pulmonary disease, unspecified; J45.909 Unspecified asthma, uncomplicated; Z85.038 Personal history of other malignant neoplasm of large intestine; Z87.891 Personal history of nicotine dependence; Z92.3 Personal history of irradiation
CPT/HCPCS: 71010; 80053; 81001; 83605; 83690; 83735; 85007; 85027; 85610; 85730; 87040; 93005; 99285

== ENCOUNTER 2017-04-06 13:44 | Inpatient (IN) | payer OTHER, MEDICARE ==
[2017-04-06] VITALS (7 sets, daily range): BP systolic 110–155; BP diastolic 69–84; PULSE 90–115; RESP 16–29; TEMP 97.7; O2SAT 85–98
[~2017-04-06 13:44] MED LIST changes: -CHOL50008 PO; +COQ-100C5 PO; -COQ1200C PO; -CYAN1TAB22 PO; +CYAN1TAB24 PO; +D31000TA PO; -MULT-135 PO; +MULTTAB77 PO; -OXYC-392 PO; -UMEC1AER INH; -ZOCO40TA PO
[2017-04-06] MEDS ORDERED: methylPREDNISolone SOD SUCC 125 MG/2 ML VIAL IV PUSH ONE (14:30)
[2017-04-06] MEDS ORDERED: SODIUM CHLORIDE 0.9% FLUSH 10 ML FLUSH IVF PRN (14:30)
[2017-04-06] MEDS: RESP: ALBUTEROL 2.5 MG/IPRATROPIUM 0.5 MG NEB (SCH) INH ×2 (14:30→20:50)
[2017-04-06 14:47] LABS: HEMATOCRIT 29.8 % (39.0-51.0); MEAN CELL VOLUME 88.9 FL (80.0-100.0); MEAN CORPUSCULAR HEMOGLOBIN 29.1 PG (27.0-34.0); MEAN CORPUSCULAR HGB CONC 32.8 % (32.0-36.0); PLATELET COUNT 262 TH/MM3 (150-450); RED BLOOD COUNT 3.35 MIL/MM3 (4.50-5.90); RED CELL DISTRIBUTION WIDTH 29.5 % (11.6-17.2); WHITE BLOOD COUNT 3.5 TH/MM3 (4.0-11.0)
[2017-04-06 14:49] LABS: HEMO FLAGS AUTO DIFF
[2017-04-06 14:53] LABS: APTT (PATIENT) 27.1 SEC (24.3-30.1); INTERNATIONAL NORMALIZED RATIO 1.1 RATIO; PROTHROMBIN TIME - PATIENT 12.4 SEC (9.8-11.6)
[2017-04-06 14:59] LABS: ANION GAP 10 MEQ/L (5-15); AST (GOT) 13 U/L (15-37); BICARBONATE 28.1 MEQ/L (21.0-32.0); BLOOD UREA NITROGEN 16 MG/DL (7-18); CHLORIDE 99 MEQ/L (98-107); GLOMERULAR FILTRATION RATE 82 ML/MIN (>89); SODIUM (NA) 137 MEQ/L (136-145)
[2017-04-06 15:04] LABS: ALKALINE PHOSPHATASE 81 U/L (45-117); ALT (GPT) 18 U/L (12-78); TOTAL BILIRUBIN ADULT 2.7 MG/DL (0.2-1.0)
[2017-04-06 15:08] LABS: BANDS 5 % (0-6); BASOPHILS 2 % (0-2); EOSINOPHILS 1 % (0-4); METAMYELOCYTES 2 % (0-1); POLYS (SEG NEUTROPHILS) 79 % (16-70); WBC DIFF SAMPLE 100
[2017-04-06 15:09] LABS: BURR CELLS 1+ (NORMAL); PLATELET MORPHOLOGY ENLARGED (NORMAL)
[2017-04-06 15:10] LABS: SCAN/DIFF FINAL DIFF MANUAL
--- NOTE | 2017-04-06 15:45 | RADRPT ---
EXAM DATE/TIME: 04/06/2017 14:55 [facility] COMPARISON: CHEST SINGLE AP, December 02, 2016, 11:58. INDICATIONS : Short of breath. MEDICAL HISTORY : Carcinoma, colon. Carcinoma, lung. SURGICAL HISTORY : Lobectomy. ENCOUNTER: Initial ACUITY: 1 day PAIN SCORE: 0/10 LOCATION: Bilateral chest FINDINGS: The cardiac silhouette is enlarged in transverse diameter. There is prominence of the aortic knob is with calcification characteristic of atherosclerotic vascular disease. There are chronic fibrotic anthony nges bilaterally. There may be a tiny loculated pneumothorax laterally at the right base. There are n o signs of tension. CONCLUSION: 1. Chronic fibrotic changes bilaterally unchanged from the prior study. 2. Possible small loculated pneumothorax in the right costophrenic angle without tension 1. Russell Sandoval MD on April 06, 2017 at 15:42 Board Certified Radiologist. This report was verified electronically.
--- NOTE | 2017-04-06 16:26 | RADRPT ---
EXAM DATE/TIME: 04/06/2017 16:04 [facility] COMPARISON: CHEST SINGLE AP, April 06, 2017, 14:55. CT THORAX W/O CONTRAST, June 29, 2016, 13:14. INDICATIONS : Shortness of breath. RADIATION DOSE: 7.24 CTDIvol (mGy) MEDICAL HISTORY : Hypertension. Carcinoma, lung. SURGICAL HISTORY : Lobectomy. ENCOUNTER: Initial ACUITY: 1 day PAIN SCALE: 0/10 LOCATION: Bilateral chest TECHNIQUE: Volumetric scanning of the chest was performed. Using automated exposure control and adjustment of t he mA and/or kV according to patient size, radiation dose was kept as low as reasonably achievable to obtain optimal diagnostic quality images. DICOM format image data is available electronically for r eview and comparison. Follow-up recommendations for detected pulmonary nodules are based at a minimum on nodule size and pa tient risk factors according to Fleischner Society Guidelines. FINDINGS: There is a large right pneumothorax chest increased when compared to the chest radiograph taken earli er the same day. There is minimal shift of the mediastinum to the left. The pneumothorax is chronic p resent in June 2016 but has increased in size. There are postsurgical changes in the right hilum w ith atelectasis involving the right lower lobe. Interlobular changes are present in the left lung. Examination of the mediastinum demonstrates no abnormally enlarged lymph nodes by CT criteria. No axi llary or hilar abnormalities are identified. Coronary artery calcifications are present. The visualiz ed upper abdomen demonstrates no abnormality. CONCLUSION: 1. Enlarging right pneumothorax. Findings were discussed with Dr. Marin at that time of dictation Russell Sandoval MD on April 06, 2017 at 16:10 Board Certified Radiologist. This report was verified electronically.
[2017-04-06] MEDS ORDERED: LIDOCAINE HCL 1% 50 ML VIAL ONE (16:51)
[2017-04-06] MEDS ORDERED: LIDOCAINE HCL 2% 50 ML VIAL NERV BLOCK ONE (17:00)
--- NOTE | 2017-04-06 18:31 | RADRPT ---
EXAM DATE/TIME: 04/06/2017 17:57 [facility] COMPARISON: CT THORAX W/O CONTRAST, April 06, 2017, 16:04. INDICATIONS : Post chest tube placement. RADIATION DOSE: 8.32 CTDIvol (mGy) MEDICAL HISTORY : Cardiovascular disease. Carcinoma, lung. Carcinoma, colon. Afib, diabetes, rad therapy. SURGICAL HISTORY : Lobectomy. ENCOUNTER: Initial ACUITY: 1 day PAIN SCALE: 6/10 LOCATION: Bilateral chest TECHNIQUE: Volumetric scanning of the chest was performed. Using automated exposure control and adjustment of t he mA and/or kV according to patient size, radiation dose was kept as low as reasonably achievable to obtain optimal diagnostic quality images. DICOM format image data is available electronically for r eview and comparison. Follow-up recommendations for detected pulmonary nodules are based at a minimum on nodule size and pa tient risk factors according to Fleischner Society Guidelines. FINDINGS: LUNGS: The right lung has almost completely reexpanded with only a small residual anterior pneumothorax. Sma ll chest tube has been placed. Patchy airspace disease is identified throughout the right lung. Left lung is unchanged demonstrating chronic changes but no significant consolidation or evidence of pneum othorax. PLEURAE: Small right pleural effusion remains evident. Left pleural scarring is again noted. MEDIASTINUM: Stable without evidence of significant mass or lymphadenopathy. Calcified coronary arteries are again noted. Heart is moderately enlarged AXILLAE: Within normal limits. No lymphadenopathy. MUSCULOSKELETAL: Thoracic spondylosis. MISCELLANEOUS: The visualized upper abdominal organs demonstrate no acute abnormality. CONCLUSION: 1. Subtotal reexpansion of the right lung following chest tube placement. Small anterior apical pneum othorax persists. 2. Significant airspace disease throughout the right lung with areas of consolidation. 3. Small right pleural effusion 4. Moderate cardiomegaly 5. Pleural-parenchymal scarring left lung Nasim Varma MD on April 06, 2017 at 18:24 Board Certified Radiologist. This report was verified electronically.
--- NOTE | 2017-04-06 18:34 | PD ---
Physical Exam Date Seen by Provider: Apr 06, 2017 Time Seen by Provider: 17:00 Narrative I was asked by Dr. Marin to assist with a chest tube placement on Mr. Watkins. Patient has a large right sided pneumothorax. Patient's had previous pneumothoraces. Patient has history of lung cancer. Data Data Last Documented VS Vital Signs Date Time Temp Pulse Resp B/P (MAP) Pulse Ox O2 Delivery O2 Flow Rate FiO2 04/06/17 17:30 100 23 110/69 (83) 98 Nasal Cannula 6.00 04/06/17 13:47 97.7 Orders Orders Complete Blood Count With Diff (04/06/17 14:19) Comprehensive Metabolic Panel (04/06/17 14:19) B-Type Natriuretic Peptide (04/06/17 14:19) Act Partial Throm Time (Ptt) (04/06/17 14:19) Prothrombin Time / Inr (Pt) (04/06/17 14:19) Troponin I (04/06/17 14:19) Iv Access Insert/Monitor (04/06/17 14:19) Ecg Monitoring (04/06/17 14:19) Oximetry (04/06/17 14:19) Oxygen Administration (04/06/17 14:19) Chest, Single Ap (04/06/17 14:19) Sodium Chloride 0.9% Flush (Ns Flush) (04/06/17 14:30) Methylprednisolone So Succ Inj (Solumedr (04/06/17 14:30) Albuterol-Ipratropium Neb (Duoneb Neb) (04/06/17 14:30) Ct Thorax/ Chest Wo Iv Contras (04/06/17 ) Lidocaine 1% Inj (50 Ml) (Xylocaine 1% I (04/06/17 16:51) Lidocaine 2% Inj (Xylocaine 2% Inj) (04/06/17 17:00) Ct Thorax/ Chest Wo Iv Contras (04/06/17 17:29) Labs Laboratory Tests Test 04/06/17 14:27 White Blood Count 3.5 TH/MM3 Red Blood Count 3.35 MIL/MM3 Hemoglobin 9.8 GM/DL Hematocrit 29.8 % Mean Corpuscular Volume 88.9 FL Mean Corpuscular Hemoglobin 29.1 PG Mean Corpuscular Hemoglobin Concent 32.8 % Red Cell Distribution Width 29.5 % Platelet Count 262 TH/MM3 Mean Platelet Volume 11.9 FL CBC Comment AUTO DIFF Differential Total Cells Counted 100 Neutrophils % (Manual) 79 % Band Neutrophils % 5 % Lymphocytes % 11 % Eosinophils % 1 % Basophils % 2 % Neutrophils # (Manual) 3.0 TH/MM3 Metamyelocytes 2 % Differential Comment FINAL DIFF MANUAL Platelet Morphology Comment ENLARGED Yareli Cells 1+ Prothrombin Time 12.4 SEC Prothromb Time International Ratio 1.1 RATIO Activated Partial Thromboplast Time 27.1 SEC Blood Urea Nitrogen 16 MG/DL Creatinine 0.91 MG/DL Random Glucose 126 MG/DL Total Protein 8.1 GM/DL Albumin 3.9 GM/DL Calcium Level 9.8 MG/DL Alkaline Phosphatase 81 U/L Aspartate Amino Transf (AST/SGOT) 13 U/L Alanine Aminotransferase (ALT/SGPT) 18 U/L Total Bilirubin 2.7 MG/DL Sodium Level 137 MEQ/L Potassium Level 4.0 MEQ/L Chloride Level 99 MEQ/L Carbon Dioxide Level 28.1 MEQ/L Anion Gap 10 MEQ/L Estimat Glomerular Filtration Rate 82 ML/MIN Troponin I LESS THAN 0.02 NG/ML B-Type Natriuretic Peptide 100 PG/ML [facility] Medical Record Reviewed: Yes Supervised Visit with GAYATRI: No Narrative Course Assessment Dr. Georgie Gallardo to place a chest tube. Patient had a large pneumothoraces and was having respiratory distress. The patient was consented for the chest tube placement. Patient was on eliquis. I discussed with him that there are risks that he could bleed more than the average chest tube placement. He was amenable to the plan. Chest tube was placed without difficulty. Repeat CT scan showed improved expansion of the lung. He tolerated procedure well. Procedures Procedure Narrative CHEST TUBE THORACOSTOMY: The right chest was prepped with Betadine and sterilely draped. The area of the fifth intercostal interspace was infiltrated with 1% lidocaine plain. A 0.5 centimeter incision was made with a scalpel at the fifth intercostal space. Blunt dissection to the fourth intercostal interspace performed and the pleura was punctured with immediate moe of air. Finger was inserted in the space and thoracostomy tube was placed, directed posteriorly and superiorly. Tube draining well. The thoracostomy tube was secured with suture. Sterile seal dressing placed. Patient tolerated procedure well. Diagnosis Primary Impression: Pneumothorax Aidan Ramirez MD Apr 06, 2017 18:33
--- NOTE | 2017-04-06 19:01 | PD ---
HPI Chief Complaint: Respiratory Symptoms Time Seen by Provider: 14:09 Travel History International Travel<30 days: No Contact w/Intl Traveler<30days: No Traveled to known affect area: No History of Present Illness HPI This is a 71-year-old male who has a history of COPD on 2 L of oxygen at home and myelodysplasia who presents to the emergency department with increasing shortness of breath it's been going on for 2-3 days, constant, worsening, with no associated cough, fevers or chills. He has a history of a pneumothorax back in June. He denies any chest pain. He does feel increasingly weak and has dyspnea is worse with exertion. PFSH Past Medical History Hx Anticoagulant Therapy: Yes Arthritis: Yes Asthma: Yes Atrial Fibrillation: Yes Blood Disorders: Yes (LOW PLATELETS) Anxiety: Yes Depression: No Heart Rhythm Problems: Yes (A-FIB) Cancer: Yes (COLON, LEFT LUNG) Cardiovascular Problems: Yes (AFIB) High Cholesterol: Yes Chemotherapy: Yes (COMPLETED IN NOVEMBER 2013) Chest Pain: Yes Congestive Heart Failure: No COPD: Yes Coronary Artery Disease: Yes Diabetes: Yes (BORDERLINE) Patient Takes Glucophage: Yes Endocrine: No Gastrointestinal Disorders: Yes (COLON CANCER HX) GERD: No Genitourinary: No Hepatitis: No Hiatal Hernia: No Hypertension: Yes Immune Disorder: No Implanted Vascular Access Dvce: Yes (INFUSAPORT RT CHEST PER PT (FINISHED CHEMO IN NOVEMBER 2013)) Musculoskeletal: Yes (ARTHRITIS IN ANKLES ) Neurologic: Yes (HEADACHES) Psychiatric: No Reproductive: No Respiratory: Yes Myocardial Infarction: No Radiation Therapy: Yes (RAD FINISHED JAN 27 2014) Seizures: No Sleep Apnea: No Thyroid Disease: No Ulcer: No Past Surgical History Abdominal Surgery: Yes (COLON RESECTION/ COLOSTOMY/ COLOS. CLOSURE) AICD: No Arteriovenous Shunt: No Cardiac Surgery: No Ear Surgery: No Endocrine Surgery: No Eye Surgery: No Genitourinary Surgery: No Gynecologic Surgery: No Insulin Pump: No Joint Replacement: No Oral Surgery: No Pacemaker: No Thoracic Surgery: Yes (HIATAL HERNIA REP.2008) Other Surgery: Yes Social History Alcohol Use: No Tobacco Use: No (QUIT 16 YRS AGO) Substance Use: No Allergies-Medications (Allergen,Severity, Reaction): Coded Allergies: adhesive (Unverified Allergy, Severe, Rash, 02/04/17) diatrizoate meglumine (Unverified Allergy, Severe, Hives, 02/04/17) gadobenic acid (Unverified Allergy, Severe, Hives, 02/04/17) gadodiamide (Unverified Allergy, Severe, Hives, 02/04/17) gadoteridol (Unverified Allergy, Severe, Hives, 02/04/17) iodixanol (Unverified Allergy, Severe, Hives, 02/04/17) iohexol (Unverified Allergy, Severe, Hives, 02/04/17) Reported Meds & Prescriptions Reported Meds & Active Scripts Active Cardizem CD 24 HR (Diltiazem CD 24 HR) 180 Mg Caper 360 Mg PO DAILY Reported Prednisone 5 Mg Tab 5 Mg PO EVERY OTHER DAY D3 (Cholecalciferol) 1,000 Unit Tab 5 PO DAILY Coq-10 Tr (Coenzyme Q10 (Ubidecarenone)) 100 Mg Cap 2 Cap PO DAILY B12 (Cyanocobalamin) 1,000 Mcg Tab 5,000 PO DAILY Multi-Day (Multiple Vitamins W/ Iron) 1 Tab Tab PO DAILY Xarelto (Rivaroxaban) 20 Mg Tab 20 Mg PO DAILY Ventolin Hfa 18 GM Inh (Albuterol Sulfate) 90 Mcg/Act Aer 1-2 Puff INH Q4-6H PRN Tamsulosin (Tamsulosin HCl) 0.4 Mg Cap 0.4 Mg PO HS Potassium Chloride ER (Potassium Chloride) 20 Meq Tab 20 Meq PO DAILY Magnesium Oxide 400 Mg Tab 400 Mg PO DAILY Duoneb (Ipratropium-Albuterol Neb) 0.5-2.5 Mg/3 Ml Neb 1 Vial NEB QID PRN Lasix (Furosemide) 40 Mg Tab 40 Mg PO DAILY Azelastine Nasal [place] (Azelastine HCl) 0.1% [place] 1 [place] EACH NARE DAILY Review of Systems Except as stated in HPI: all other systems reviewed are Neg Physical Exam Narrative GENERAL:Well appearing, no acute distress SKIN: Oozing on the bilateral upper extremities HEAD: Atraumatic. Normocephalic. EYES: Pupils equal and round. No injection or drainage. ENT: Moist mucous membranes NECK: Trachea midline. CARDIOVASCULAR: Tachycardia No murmur appreciated. RESPIRATORY: Poor air movement in both lungs, prolonged expiratory phase, tachypnea GASTROINTESTINAL: Abdomen soft, non-tender, nondistended. MUSCULOSKELETAL: No obvious deformities. NEUROLOGICAL: Awake and alert. No obvious cranial nerve deficits. Moving all extremities. PSYCHIATRIC: Appropriate mood and affect; insight and judgment normal. Data Data Last Documented VS Vital Signs Date Time Temp Pulse Resp B/P (MAP) Pulse Ox O2 Delivery O2 Flow Rate FiO2 04/06/17 17:30 100 23 110/69 (83) 98 Nasal Cannula 6.00 04/06/17 13:47 97.7 Orders Orders Complete Blood Count With Diff (04/06/17 14:19) Comprehensive Metabolic Panel (04/06/17 14:19) B-Type Natriuretic Peptide (04/06/17 14:19) Act Partial Throm Time (Ptt) (04/06/17 14:19) Prothrombin Time / Inr (Pt) (04/06/17 14:19) Troponin I (04/06/17 14:19) Iv Access Insert/Monitor (04/06/17 14:19) Ecg Monitoring (04/06/17 14:19) Oximetry (04/06/17 14:19) Oxygen Administration (04/06/17 14:19) Chest, Single Ap (04/06/17 14:19) Sodium Chloride 0.9% Flush (Ns Flush) (04/06/17 14:30) Methylprednisolone So Succ Inj (Solumedr (04/06/17 14:30) Albuterol-Ipratropium Neb (Duoneb Neb) (04/06/17 14:30) Ct Thorax/ Chest Wo Iv Contras (04/06/17 ) Lidocaine 1% Inj (50 Ml) (Xylocaine 1% I (04/06/17 16:51) Lidocaine 2% Inj (Xylocaine 2% Inj) (04/06/17 17:00) Ct Thorax/ Chest Wo Iv Contras (04/06/17 17:29) Labs Laboratory Tests Test 04/06/17 14:27 White Blood Count 3.5 TH/MM3 Red Blood Count 3.35 MIL/MM3 Hemoglobin 9.8 GM/DL Hematocrit 29.8 % Mean Corpuscular Volume 88.9 FL Mean Corpuscular Hemoglobin 29.1 PG Mean Corpuscular Hemoglobin Concent 32.8 % Red Cell Distribution Width 29.5 % Platelet Count 262 TH/MM3 Mean Platelet Volume 11.9 FL CBC Comment AUTO DIFF Differential Total Cells Counted 100 Neutrophils % (Manual) 79 % Band Neutrophils % 5 % Lymphocytes % 11 % Eosinophils % 1 % Basophils % 2 % Neutrophils # (Manual) 3.0 TH/MM3 Metamyelocytes 2 % Differential Comment FINAL DIFF MANUAL Platelet Morphology Comment ENLARGED Yareli Cells 1+ Prothrombin Time 12.4 SEC Prothromb Time International Ratio 1.1 RATIO Activated Partial Thromboplast Time 27.1 SEC Blood Urea Nitrogen 16 MG/DL Creatinine 0.91 MG/DL Random Glucose 126 MG/DL Total Protein 8.1 GM/DL Albumin 3.9 GM/DL Calcium Level 9.8 MG/DL Alkaline Phosphatase 81 U/L Aspartate Amino Transf (AST/SGOT) 13 U/L Alanine Aminotransferase (ALT/SGPT) 18 U/L Total Bilirubin 2.7 MG/DL Sodium Level 137 MEQ/L Potassium Level 4.0 MEQ/L Chloride Level 99 MEQ/L Carbon Dioxide Level 28.1 MEQ/L Anion Gap 10 MEQ/L Estimat Glomerular Filtration Rate 82 ML/MIN Troponin I LESS THAN 0.02 NG/ML B-Type Natriuretic Peptide 100 PG/ML MDM Medical Decision Making Medical Screen Exam Complete: Yes Emergency Medical Condition: Yes Interpretation(s) Afebrile, tachycardic, tachypneic, hypoxic Leukopenia Anemia Electrolytes are reassuring Troponin is normal BNP is normal Chest x-ray: Possible small loculated pneumothorax in the right costophrenic angle without tension Chest CT: Enlarging right pneumothorax Differential Diagnosis Pneumothorax, hemothorax, pneumonia, pulmonary embolism Narrative Course This is a 71-year-old male who presents to the emergency department with increasing shortness of breath. He has a history of severe COPD. He was hypoxic on his 2 L of oxygen to 85%. He is dyspneic on exam. Labs are reassuring. X-ray demonstrates a small pneumothorax. Given the patient's degree of discomfort his CT was ordered which demonstrates a large pneumothorax. I spoke to Dr. Ramirez who assisted me in placing a pigtail catheter. Repeat CT demonstrates partial reexpansion of the lung and clinically patient has improved. He will be admitted to the ICU for close monitoring. Critical Care Narrative Aggregate critical care time was 45 minutes. Time to perform other separately billable procedures was not included in the critical care time. My time did not include minutes spent treating any other patients simultaneously or on activities that did not directly contribute to the patient's treatment. The services I provided to this patient were to treat and/or prevent clinically significant deterioration that could result in: Disability, I provided critical care services requiring my management, as noted below: Chart data review, documentation time, medication orders and management, vital sign assessments/reviewing monitor data, ordering and reviewing lab tests, ordering and interpreting/reviewing x-rays and diagnostic studies, care of the patient and discussion of the patient with the admitting physicians. Diagnosis Primary Impression: Pneumothorax Qualified Codes: J93.11 - Primary spontaneous pneumothorax Admitting Information Admitting Physician Requests: Admit Georgie Marin MD Apr 06, 2017 19:01
--- NOTE | 2017-04-06 19:56 | HHI.HP ---
[facility] Service Critical Care Medicine Primary Care Physician Stephane Barraza MD Admission Diagnosis spontaneous pneumothorax Diagnosis: (1) Pneumothorax Diagnosis: Principal (2) Total bilirubin, elevated Diagnosis: Principal (3) Myelodysplastic syndrome Diagnosis: Principal (4) BPH (benign prostatic hyperplasia) Diagnosis: Secondary (5) Respiratory distress Diagnosis: Principal (6) Afib Diagnosis: Principal (7) Depression Diagnosis: Secondary (8) COPD (chronic obstructive pulmonary disease) Diagnosis: Principal Chief Complaint: Shortness of breath Travel History International Travel<30 Days: No Contact w/Intl Traveler <30 Da: No Traveled to Known Affected Are: No History of Present Illness This is a 71-year-old male. Date of admission 04/06/2017. 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 Patient was admitted 07/09 with spontaneous pneumothorax on the right. Was seen in consultation by Dr. Zacarias and had multiple chest tubes plate at that time. She was discharged home with no recurrence. Patient presents today to [facility] with acute shortness of breath. CT thorax revealed a large right total throat without tension features. The catheter was placed by ED physician with incomplete resolution. Patient is currently on minus 20 cm H2O. This will be increased -40. Patient is currently 2 L nasal cannula and is resting comfortable at the present time. Patient denies any trauma, recent travels or inciting events for pneumothorax Review of Systems Constitutional: COMPLAINS OF: Fatigue, Weight loss, DENIES: Fever, Weight gain Endocrine: DENIES: Polydipsia, Polyuria Eyes: DENIES: Blurred vision, Double Vision Ears, nose, mouth, throat: DENIES: Tinnitus Respiratory: COMPLAINS OF: Cough, Shortness of breath, DENIES: Apneas, Sputum production Cardiovascular: COMPLAINS OF: Chest pain, Dyspnea on Exertion, DENIES: Claudication Gastrointestinal: DENIES: Abdominal pain Genitourinary: COMPLAINS OF: Urgency Musculoskeletal: DENIES: Joint pain Integumentary: DENIES: Abnormal pigmentation Hematologic/lymphatic: DENIES: Bruising Immunologic/allergic: DENIES: Eczema Neurologic: DENIES: Abnormal gait Psychiatric: COMPLAINS OF: Anxiety, DENIES: Confusion Past Family Social History Allergies: Coded Allergies: adhesive (Unverified Allergy, Severe, Rash, 02/04/17) diatrizoate meglumine (Unverified Allergy, Severe, Hives, 02/04/17) gadobenic acid (Unverified Allergy, Severe, Hives, 02/04/17) gadodiamide (Unverified Allergy, Severe, Hives, 02/04/17) gadoteridol (Unverified Allergy, Severe, Hives, 02/04/17) iodixanol (Unverified Allergy, Severe, Hives, 02/04/17) iohexol (Unverified Allergy, Severe, Hives, 02/04/17) Past Medical History Depression/anxiety Myelodysplastic syndrome BPH COPD Chronically elevated total bilirubin Skin cancer unknown types Small cell/squamous cell carcinoma along Adenocarcinoma the rectum Hypertension Chronic prednisone use Atrial fibrillation Chronic anticoagulation use Past Surgical History Left lower lobe lobectomy [id number] placed and removed Colon resection Incarcerated hernia repair Urethral stent History of pneumothorax on the right chest tube placement Reported Medications Active Cardizem CD 24 HR (Diltiazem CD 24 HR) 180 Mg Caper 360 Mg PO DAILY Reported Prednisone 5 Mg Tab 5 Mg PO EVERY OTHER DAY D3 (Cholecalciferol) 1,000 Unit Tab 5 PO DAILY Coq-10 Tr (Coenzyme Q10 (Ubidecarenone)) 100 Mg Cap 2 Cap PO DAILY B12 (Cyanocobalamin) 1,000 Mcg Tab 5,000 PO DAILY Multi-Day (Multiple Vitamins W/ Iron) 1 Tab Tab PO DAILY Xarelto (Rivaroxaban) 20 Mg Tab 20 Mg PO DAILY Ventolin Hfa 18 GM Inh (Albuterol Sulfate) 90 Mcg/Act Aer 1-2 Puff INH Q4-6H PRN Tamsulosin (Tamsulosin HCl) 0.4 Mg Cap 0.4 Mg PO HS Potassium Chloride ER (Potassium Chloride) 20 Meq Tab 20 Meq PO DAILY Magnesium Oxide 400 Mg Tab 400 Mg PO DAILY Duoneb (Ipratropium-Albuterol Neb) 0.5-2.5 Mg/3 Ml Neb 1 Vial NEB QID PRN Lasix (Furosemide) 40 Mg Tab 40 Mg PO DAILY Azelastine Nasal [place] (Azelastine HCl) 0.1% [place] 1 [place] EACH NARE DAILY Active Ordered Medications Reviewed in EMR Family History Mother with breast cancer Social History Prior tobaccoism quit. Quit. Rare alcohol use. Denies illicit drug use. Physical Exam Vital Signs Vital Signs Date Time Temp Pulse Resp B/P (MAP) Pulse Ox O2 Delivery O2 Flow Rate FiO2 04/06/17 17:30 100 23 110/69 (83) 98 Nasal Cannula 6.00 04/06/17 16:00 110 29 147/84 (105) 95 Nasal Cannula 7.00 04/06/17 14:30 96 Nasal Cannula 2.00 04/06/17 14:10 28 97 Nasal Cannula 2.00 04/06/17 14:10 97 Nasal Cannula 2.00 04/06/17 14:10 97 Nasal Cannula 2.00 04/06/17 13:47 97.7 115 26 155/79 (104) 85 Physical Exam GENERAL: 71-year-old male, resting in bed in no acute distress on nasal cannula SKIN: Warm and dry. Well perfused HEAD: Atraumatic. Normocephalic. EYES: Pupils equal and round about 3 mm bilaterally and reactive. No scleral icterus. No injection or drainage. ENT: No nasal bleeding or discharge. Mucous membranes pink and moist. NECK: Trachea midline. No JVD. CARDIOVASCULAR: Regular rate and rhythm. S1, S2. No S4 without murmur RESPIRATORY: Positive end expiratory wheeze. Diminished breath sounds on the right side. GASTROINTESTINAL: Abdomen soft, non-tender, slightly protuberant. Hypoactive bowel sounds are appreciated. MUSCULOSKELETAL: Extremities without significant peripheral edema. No obvious deformities. NEUROLOGICAL: Awake and alert. No obvious cranial nerve deficits. Motor grossly within normal limits. Five out of 5 muscle strength in the arms and legs. Normal speech. Laboratory Laboratory Tests Test 04/06/17 14:27 White Blood Count 3.5 Red Blood Count 3.35 Hemoglobin 9.8 Hematocrit 29.8 Mean Corpuscular Volume 88.9 Mean Corpuscular Hemoglobin 29.1 Mean Corpuscular Hemoglobin Concent 32.8 Red Cell Distribution Width 29.5 Platelet Count 262 Mean Platelet Volume 11.9 CBC Comment AUTO DIFF Differential Total Cells Counted 100 Neutrophils % (Manual) 79 Band Neutrophils % 5 Lymphocytes % 11 Eosinophils % 1 Basophils % 2 Neutrophils # (Manual) 3.0 Metamyelocytes 2 Differential Comment FINAL DIFF MANUAL Platelet Morphology Comment ENLARGED Mills Cells 1+ Prothrombin Time 12.4 Prothromb Time International Ratio 1.1 Activated Partial Thromboplast Time 27.1 Blood Urea Nitrogen 16 Creatinine 0.91 Random Glucose 126 Total Protein 8.1 Albumin 3.9 Calcium Level 9.8 Alkaline Phosphatase 81 Aspartate Amino Transf (AST/SGOT) 13 Alanine Aminotransferase (ALT/SGPT) 18 Total Bilirubin 2.7 Sodium Level 137 Potassium Level 4.0 Chloride Level 99 Carbon Dioxide Level 28.1 Anion Gap 10 Estimat Glomerular Filtration Rate 82 Troponin I LESS THAN 0.02 B-Type Natriuretic Peptide 100 Result Diagram: 04/06/17 1427 04/06/17 1427 Imaging Last Impressions Chest CT 04/06/17 1729 Signed Impressions: Service Date/Time: Thursday, April 06, 2017 17:57 - CONCLUSION: 1. Subtotal reexpansion of the right lung following chest tube placement. Small anterior apical pneumothorax persists. 2. Significant airspace disease throughout the right lung with areas of consolidation. 3. Small right pleural effusion 4. Moderate cardiomegaly 5. Pleural-parenchymal scarring left lung Nasim Varma MD Chest X-Ray 04/06/17 1419 Signed Impressions: Service Date/Time: Thursday, April 06, 2017 14:55 - CONCLUSION: 1. Chronic fibrotic changes bilaterally unchanged from the prior study. 2. Possible small loculated pneumothorax in the right costophrenic angle without tension 1. Russell Sandoval MD Caprini VTE Risk Assessment Caprini VTE Risk Assessment: Mod/High Risk (score >= 2) Caprini Risk Assessment Model Point Value = 1 Point Value = 2 Point Value = 3 Point Value = 5 Age 41-60 Minor surgery BMI > 25 kg/m2 Swollen legs Varicose veins or History of unexplained or recurrent spontaneous Oral contraceptives or hormone replacement Sepsis (< 1 month) Serious lung disease, including pneumonia (< 1 month) Abnormal pulmonary function Acute myocardial infarction Congestive heart failure (< 1 month) History of inflammatory bowel disease Medical patient at bed rest Age 61-74 Arthroscopic surgery Major open surgery (> 45 min) Laparoscopic surgery (> 45 min) Malignancy Confined to bed (> 72 hours) Immobilizing plaster cast Central venous access Age >= 75 History of VTE Family history of VTE Factor V Leiden Prothrombin [id number] Lupus anticoagulant Anticardiolipin antibodies Elevated serum homocysteine Heparin-induced thrombocytopenia Other congenital or acquired thrombophilia Stroke (< 1 month) Elective arthroplasty Hip, pelvis, or leg fracture Acute spinal cord injury (< 1 month) Prophylaxis Regimen Total Risk Factor Score Risk Level Prophylaxis Regimen 0-1 Low Early ambulation 2 Moderate Order ONE of the following: *Sequential Compression Device (SCD) *Heparin 5000 units SQ BID 3-4 Higher Order ONE of the following medications: *Heparin 5000 units SQ TID *Enoxaparin/Lovenox 40 mg SQ daily (WT < 150 kg, CrCl > 30 mL/min) *Enoxaparin/Lovenox 30 mg SQ daily (WT < 150 kg, CrCl > 10-29 mL/min) *Enoxaparin/Lovenox 30 mg SQ BID (WT < 150 kg, CrCl > 30 mL/min) AND/OR *Sequential Compression Device (SCD) 5 or more Highest Order ONE of the following medications: *Heparin 5000 units SQ TID (Preferred with Epidurals) *Enoxaparin/Lovenox 40 mg SQ daily (WT < 150 kg, CrCl > 30 mL/min) *Enoxaparin/Lovenox 30 mg SQ daily (WT < 150 kg, CrCl > 10-29 mL/min) *Enoxaparin/Lovenox 30 mg SQ BID (WT < 150 kg, CrCl > 30 mL/min) AND *Sequential Compression Device (SCD) Assessment and Plan Assessment and Plan Neuro/Psych: Depression disorder Acetaminophen for fever [place]/morphine for pain management Not currently on medication? For depression CV: Atrial fibrillation/chronic rate controlled Hypertension Continue diltiazem 240 mg by mouth daily for A. fib/hypertension Continue Lasix 40 mg daily with potassium chloride 20 mEq daily Holding Apixaban currently with recent chest tube placement Echocardiogram 2013 revealed EF 50-55%. LAdilated. PAP 43 mmHg Currently on normal saline at 84 cc an hour. Resp: Spontaneous right pneumothorax History of SCC as long T3 N1 M0 status post left lower lobe lobectomy COPD/2 L chronic Status post pigtail chest tube placement in ED CT -40 CM H20 Repeat chest x-ray in a.m. Nasal cannula 2 L to maintain saturations greater than or equal to 92% Incentive spirometry while awake Consultation to Dr. Zacarias for management of chest tube Albuterol/ipratropium aerosols every 4 hours with albuterol aerosols every 2 hours. Dyspnea GI: Elevated total bilirubin Low albumin Total bilirubin currently 2.7. LFTs normal Advance diet as tolerated Pantoprazole for GI prophylaxis Docusate sodium for bowel regimen : BPH Continue tamsulosin 0.4 mill grams by mouth daily No indication for [place] catheter Endo: Chronic prednisone use Continue prednisone 5 mill grams by mouth daily Sliding-scale insulin if indicated Renal: Creatinine currently within normal limits Monitor urine output Accurate I's and O's Heme: Myelodysplastic syndrome History of adenocarcinoma the rectum status post colectomy History of SCC lung status post left lower lobectomy Small cell carcinoma paratracheal node Leukopenia Normocytic anemia Apixaban use DR. Shoemaker is his oncologist No indication for transfusion of blood products at this time Hold NOAC at this time ID: Monitor for infection MSK: PT evaluate and treat FEN: Replace lites lites as clinically indicated Access - Utilize peripheral IV. Central line if indicated Prophylaxis - GI - pantoprazole - DVT - SCD/holding NOAC secondary to possible need for larger chest tube placement Level II admission. We'll admit to ICU but transferred care to hospitalist in a.m. 04/07. will be consulted to help manage his chest tube. Code Status Full code Discussed Condition With ED physician. Patient. Care plan discussed and all questions answered. Dr. Marin Problem Qualifiers (1) Pneumothorax: Qualified Codes: J93.11 - Primary spontaneous pneumothorax (2) BPH (benign prostatic hyperplasia): Qualified Codes: N40.0 - Benign prostatic hyperplasia without lower urinary tract symptoms (3) Afib: Qualified Codes: I48.2 - Chronic atrial fibrillation (4) Depression: Qualified Codes: F32.9 - Major depressive disorder, single episode, unspecified (5) COPD (chronic obstructive pulmonary disease): Qualified Codes: J44.9 - Chronic obstructive pulmonary disease, unspecified Kaveh Moreno MD Apr 06, 2017 19:56
[2017-04-06] MEDS ORDERED: MORPHINE SULFATE 4 MG/ML INJ IV PUSH PRN (20:00)
[2017-04-06] MEDS ORDERED: ACETAMINOPHEN 325 MG TAB PO PRN (20:00)
[2017-04-06] MEDS ORDERED: BISACODYL 10 MG SUPP RECTAL PRN (20:00)
[2017-04-06] MEDS ORDERED: CHLORHEXIDINE GLUCONATE 2 % 1 PACK (2 CLOTHS) TOP PRN (20:00)
[2017-04-06] MEDS ORDERED: MISCELLANEOUS NURSING INFORMATION XX SCH (20:00)
[2017-04-06] MEDS ORDERED: RESP: ALBUTEROL 2.5 MG/3 ML NEB (PRN) INH (20:00)
[2017-04-06] MEDS ORDERED: LACTULOSE SYRUP 20 GM/30 ML CUP PO PRN (20:00)
[2017-04-06] MEDS ORDERED: MAGNESIUM HYDROXIDE SUSP 30 ML CUP PO PRN (20:00)
[2017-04-06] MEDS ORDERED: SENNOSIDES 8.6 MG TAB PO PRN (20:00)
[2017-04-06] MEDS ORDERED: SODIUM CHLORIDE 0.9% FLUSH 10 ML FLUSH IV FLUSH PRN (20:00)
[2017-04-06] MEDS ORDERED: ACETAMINOPHEN/HYDROcodone 325 MG/5 MG TAB PO PRN (20:00)
[2017-04-06] MEDS ORDERED: ONDANSETRON HCL 4 MG/2 ML VIAL IV PUSH PRN (20:00)
[2017-04-06] MEDS: SODIUM CHLOR 0.9% 1000 ML INJ 1,000 ML IV SCH (20:15)
[2017-04-06] MEDS: DOCUSATE SODIUM 50 MG/SENNA 8.6 MG TAB PO SCH (23:10)
[2017-04-06] MEDS: TAMSULOSIN HCL 0.4 MG CAP PO SCH (23:10)
[2017-04-06] MEDS: SODIUM CHLORIDE 0.9% FLUSH 10 ML FLUSH IV FLUSH SCH (23:10)
[2017-04-07] VITALS (16 sets, daily range): BP systolic 102–142; BP diastolic 55–75; PULSE 74–92; RESP 18–24; TEMP 97.4–98; O2SAT 94–98
--- NOTE | 2017-04-07 00:35 | RADRPT ---
EXAM DATE/TIME: 04/07/2017 00:21 [facility] COMPARISON: CHEST SINGLE AP, April 06, 2017, 14:55. INDICATIONS : Shortness of breath. MEDICAL HISTORY : Carcinoma, colon. Carcinoma, lung. SURGICAL HISTORY : Lobectomy. ENCOUNTER: Subsequent ACUITY: 1 day PAIN SCORE: 0/10 LOCATION: Bilateral chest FINDINGS: The cardiac silhouette is enlarged in transverse diameter. There is prominence of the aortic knob is with calcification characteristic of atherosclerotic vascular disease. There is extensive pulmonary f ibrosis with post therapy changes in the right hilum. A right chest tube is in place. There is no natali dence of pneumothorax.. CONCLUSION: 1. There is no evidence of pneumothorax. Extensive pulmonary fibrosis Russell Sandoval MD on April 07, 2017 at 0:32 Board Certified Radiologist. This report was verified electronically.
[2017-04-07] MEDS: RESP: ALBUTEROL 2.5 MG/IPRATROPIUM 0.5 MG NEB (SCH) INH ×5 (01:08→16:00)
[2017-04-07] MEDS: CHLORHEXIDINE GLUCONATE 2 % 1 PACK (2 CLOTHS) TOP SCH (04:00)
[2017-04-07 04:32] LABS: APTT (PATIENT) 26.3 SEC (24.3-30.1); INTERNATIONAL NORMALIZED RATIO 1.1 RATIO; PROTHROMBIN TIME - PATIENT 12.1 SEC (9.8-11.6)
[2017-04-07 04:39] LABS: HEMATOCRIT 27.9 % (39.0-51.0); MEAN CELL VOLUME 88.4 FL (80.0-100.0); MEAN CORPUSCULAR HEMOGLOBIN 29.4 PG (27.0-34.0); MEAN CORPUSCULAR HGB CONC 33.3 % (32.0-36.0); PLATELET COUNT 256 TH/MM3 (150-450); RED BLOOD COUNT 3.15 MIL/MM3 (4.50-5.90); RED CELL DISTRIBUTION WIDTH 29.2 % (11.6-17.2); WHITE BLOOD COUNT 3.5 TH/MM3 (4.0-11.0)
[2017-04-07 04:42] LABS: HEMO FLAGS AUTO DIFF
[2017-04-07 04:52] LABS: ALKALINE PHOSPHATASE 71 U/L (45-117); ALT (GPT) 17 U/L (12-78); ANION GAP 9 MEQ/L (5-15); AST (GOT) 13 U/L (15-37); BICARBONATE 28.1 MEQ/L (21.0-32.0); BLOOD UREA NITROGEN 17 MG/DL (7-18); CHLORIDE 100 MEQ/L (98-107); GLOMERULAR FILTRATION RATE 94 ML/MIN (>89); MAGNESIUM 2.2 MG/DL (1.5-2.5); POTASSIUM 4.1 MEQ/L (3.5-5.1); SODIUM (NA) 137 MEQ/L (136-145); TOTAL BILIRUBIN ADULT 2.2 MG/DL (0.2-1.0)
[2017-04-07 05:42] LABS: BANDS 14 % (0-6); BASOPHILS 1 % (0-2); CORRECTED NUCLEATED RBC 4 /100 WBC (0-0); NEUTROPHIL # MANUAL DIFF 3.1 TH/MM3 (1.8-7.7); POLYS (SEG NEUTROPHILS) 74 % (16-70); WBC DIFF SAMPLE 100
[2017-04-07 05:43] LABS: OVALOCYTES 2+ (NORMAL); PLATELET ESTIMATE SMEAR NORMAL (NORMAL); PLATELET MORPHOLOGY NORMAL (NORMAL); SCAN/DIFF FINAL DIFF MANUAL; TEARDROP RBCS 1+ (NORMAL)
[2017-04-07] MEDS: SODIUM CHLORIDE 0.9% FLUSH 10 ML FLUSH IV FLUSH SCH ×2 (08:22→21:41)
[2017-04-07] MEDS ORDERED: AZELASTINE 0.1% NASAL SCH (09:00)
[2017-04-07] MEDS ORDERED: COENZYME Q10 PO SCH (09:00)
[2017-04-07] MEDS: DILTIAZEM-CD 180 MG CAP ER PO SCH (09:08)
[2017-04-07] MEDS: POTASSIUM CHLORIDE 20 MEQ CONTROLLED RELEASE TAB PO SCH (09:09)
[2017-04-07] MEDS: MAGNESIUM OXIDE 400 MG TAB PO SCH (09:10)
[2017-04-07] MEDS: FUROSEMIDE 40 MG TAB PO SCH (09:10)
[2017-04-07] MEDS: DOCUSATE SODIUM 50 MG/SENNA 8.6 MG TAB PO SCH ×2 (09:11→21:00)
[2017-04-07] MEDS: PANTOPRAZOLE SOD 40 MG DELAYED RELEASE TAB PO SCH (09:11)
[2017-04-07] MEDS: SODIUM CHLOR 0.9% 1000 ML INJ 1,000 ML IV SCH (12:56)
--- NOTE | 2017-04-07 18:06 | HHI.PR ---
Subjective Remarks Follow-up spontaneous right pneumothorax 04/07/17-patient seen and examined, denies any significant shortness of breath. No chest pain only mild discomfort for about chest tube site insertion. Objective Vitals Vital Signs Date Time Temp Pulse Resp B/P (MAP) Pulse Ox O2 Delivery O2 Flow Rate FiO2 04/07/17 17:42 84 04/07/17 17:33 97.4 82 18 102/55 (71) 96 04/07/17 15:00 89 24 107/57 (74) 96 Nasal Cannula 3.00 04/07/17 12:02 91 22 112/75 (87) 96 3.00 04/07/17 08:37 98 Nasal Cannula 3.00 04/07/17 07:15 87 19 115/59 (77) 97 Nasal Cannula 3.00 04/07/17 07:15 Nasal Cannula 3.00 04/07/17 05:53 89 20 142/68 (92) 97 Nasal Cannula 3.00 04/07/17 02:21 16 04/07/17 01:10 98 2.00 04/07/17 00:10 85 18 140/65 (90) 97 Nasal Cannula 3.00 04/06/17 21:29 90 16 112/ 97 Nasal Cannula 3.00 04/06/17 20:50 98 Nasal Cannula 3.00 I/O 04/06/17 04/06/17 04/06/17 04/07/17 04/07/17 04/07/17 06:59 14:59 22:59 06:59 14:59 22:59 Intake Total 480 ml Output Total 408 ml 100 ml Balance -408 ml 380 ml Intake Oral 480 ml Output Urine Total 400 ml 100 ml Chest Tube Drainage Total 8 ml # Voids 1 1 Result Diagram: 04/07/17 0410 04/07/17 0410 Imaging Last Impressions Chest X-Ray 04/07/17 0000 Signed Impressions: Service Date/Time: Friday, April 07, 2017 00:21 - CONCLUSION: 1. There is no evidence of pneumothorax. Extensive pulmonary fibrosis Russell Sandoval MD Chest CT 04/06/17 9259 Signed Impressions: Service Date/Time: Thursday, April 06, 2017 17:57 - CONCLUSION: 1. Subtotal reexpansion of the right lung following chest tube placement. Small anterior apical pneumothorax persists. 2. Significant airspace disease throughout the right lung with areas of consolidation. 3. Small right pleural effusion 4. Moderate cardiomegaly 5. Pleural-parenchymal scarring left lung Nasim Varma MD Objective Remarks GENERAL: NAD SKIN: Warm and dry. HEAD: Normocephalic. EYES: No scleral icterus. No injection or drainage. NECK: Supple, trachea midline. No JVD or lymphadenopathy. CARDIOVASCULAR: Regular rate and rhythm without murmurs, gallops, or rubs. RESPIRATORY: Breath sounds decreased R>L . No accessory muscle use. Chest tube in place right lung GASTROINTESTINAL: Abdomen soft, non-tender, nondistended. MUSCULOSKELETAL: No cyanosis, or edema. BACK: Nontender without obvious deformity. No CVA tenderness. A/P Problem List: (1) Pneumothorax ICD Code: J93.9 - Pneumothorax, unspecified Status: Acute (2) Total bilirubin, elevated ICD Code: R17 - Unspecified jaundice (3) Myelodysplastic syndrome ICD Code: D46.9 - Myelodysplastic syndrome, unspecified (4) BPH (benign prostatic hyperplasia) ICD Code: N40.0 - Benign prostatic hyperplasia without lower urinary tract symptoms (5) Respiratory distress ICD Code: R06.00 - Respiratory distress Status: Acute (6) Afib ICD Code: I48.91 - Afib Status: Acute (7) Depression ICD Code: F32.9 - Major depressive disorder, single episode, unspecified (8) COPD (chronic obstructive pulmonary disease) ICD Code: J44.9 - Chronic obstructive pulmonary disease, unspecified Assessment and Plan 71-year-old man with Depression disorder Acetaminophen for fever [place]/morphine for pain management Not currently on medication? For depression Atrial fibrillation/chronic rate controlled Hypertension Continue diltiazem 240 mg by mouth daily for A. fib/hypertension Continue Lasix 40 mg daily with potassium chloride 20 mEq daily Continue to hold Apixaban currently with recent chest tube placement Echocardiogram 2013 revealed EF 50-55%. LAdilated. Spontaneous right pneumothorax History of SCC as long T3 N1 M0 status post left lower lobe lobectomy COPD/2 L chronic Status post pigtail chest tube placement in ED DuoNeb when necessary and maintain oxygen saturation above 92% Consultation to Dr. Zacarias for management of chest tube Elevated total bilirubin Low albumin Total bilirubin currently 2.7. LFTs normal Advance diet as tolerated Pantoprazole for GI prophylaxis Docusate sodium for bowel regimen BPH Continue tamsulosin 0.4 mill grams by mouth daily Chronic prednisone use Continue prednisone 5 mill grams by mouth daily Sliding-scale insulin if indicated Myelodysplastic syndrome History of adenocarcinoma the rectum status post colectomy History of SCC lung status post left lower lobectomy Small cell carcinoma paratracheal node Leukopenia Normocytic anemia Apixaban use DR. Shoemaker is his oncologist No indication for transfusion of blood products at this time Hold NOAC at this time Obstructive sleep apnea BiPAP when necessary Prophylaxis - GI - pantoprazole - DVT - SCD/holding NOAC secondary to possible need for larger chest tube placement Problem Qualifiers (1) Pneumothorax: Qualified Codes: J93.11 - Primary spontaneous pneumothorax (2) BPH (benign prostatic hyperplasia): Qualified Codes: N40.0 - Benign prostatic hyperplasia without lower urinary tract symptoms (3) Afib: Qualified Codes: I48.2 - Chronic atrial fibrillation (4) Depression: Qualified Codes: F32.9 - Major depressive disorder, single episode, unspecified (5) COPD (chronic obstructive pulmonary disease): Qualified Codes: J44.9 - Chronic obstructive pulmonary disease, unspecified Leonid Wakefield MD Apr 07, 2017 18:06
[2017-04-07] MEDS ORDERED: TEMAZEPAM 7.5 MG CAP PO PRN (21:00)
[2017-04-07] MEDS: TAMSULOSIN HCL 0.4 MG CAP PO SCH (21:41)
[2017-04-08] VITALS (31 sets, daily range): BP systolic 104–119; BP diastolic 55–73; PULSE 68–109; RESP 15–22; TEMP 97.5–98.7; O2SAT 96–99
[2017-04-08] MEDS: CHLORHEXIDINE GLUCONATE 2 % 1 PACK (2 CLOTHS) TOP SCH (04:00)
[2017-04-08] MEDS: RESP: ALBUTEROL 2.5 MG/IPRATROPIUM 0.5 MG NEB (SCH) INH ×4 (04:13→20:36)
--- NOTE | 2017-04-08 05:55 | MB ---
cc: YUDY SANDERS DATE OF CONSULTATION 04/07/2017 REASON FOR CONSULTATION Pneumothorax. HISTORY OF PRESENT ILLNESS This is a 71-year-old white male with a prior history of atrial fibrillation, myelodysplastic syndrome and COPD, has been on O2 at 2 liters also is on a C-PAP mask at nights for sleep apnea. The patient was experiencing shortness of breath over the past two days and came to the emergency room for evaluation. His CT of the chest revealed a large right pneumothorax without extension. The patient had to have a chest tube placed and the pneumothorax partially resolved. Presently is on wall suction at -20 cm. The patient also is on O2 at 2 liters, states that his breathing is somewhat better. He had some bleeding around the chest tube site but he has been on Eliquis as an outpatient as well as Plavix due to his past history of coronary artery disease and atrial fibrillation. He has no history of hemoptysis, nausea or vomiting. PAST MEDICAL HISTORY 1. History of ASHD. 2. Atrial fibrillation. 3. History of adenocarcinoma of the rectum. 4. History of skin cancers. 5. Hypertension 6. Hyperlipidemia. 7. Previous history of pneumothorax on the right. 8. History of sleep apnea. PAST SURGICAL HISTORY 1. He has had a left lower lobectomy for squamous cell CA. 2. Hernia repair. 3. Urethral stent placement. HABITS The patient was a smoker for 20 years about a pack per day, quit in the s. Alcohol use occasional. FAMILY HISTORY Noncontributory. ALLERGIES IOHEXOL. DIATRIZOATE. ADHESIVES. SYSTEMS REVIEW The patient has lost weight. He has mild leg swelling. No headaches or blackouts, complains of some chest tightness and wheezing and shortness of breath. He has epigastric distress and reflux. He has urinary frequency and no dysuria. No flank pain and he has some joint pains. MEDICATIONS 1. Eliquis 5 mg b.i.d. 2. Tamsulosin 0.4 mg at bedtime. 3. DuoNeb nebs b.i.d. 4. Lasix 40 mg a day. 5. The patient is on a C-PAP mask nightly for sleep apnea. PHYSICAL EXAMINATION GENERAL: This elderly white male who is alert, pale and mildly dyspneic. VITAL SIGNS: Blood pressure is 128/80, pulse is 100, respirations 24, temperature 97.5. HEENT: Head is normocephalic. Pupils are reactive. Tongue moist. Throat is clear. Nasal mucosa injected. NECK: Supple. No venous distension. No thyromegaly or lymphadenopathy. CHEST: Increased AP diameter with decreased breath sounds over the right mid and lower chest with occasional crackles bilaterally. HEART: The heart sounds are irregular, S1 and S2. No definite murmur. ABDOMEN: Soft, protuberant without masses. No organomegaly or tenderness. Bowel sounds are active. EXTREMITIES: Mild varicosities. Decreased peripheral pulses. Reflexes are 1+ with no gross motor deficits. Cranial nerves grossly intact. SKIN: No lesions observed. IMPRESSION 1. Spontaneous right pneumothorax resolved. 2. Right basilar atelectasis. 3. History of left lower lobectomy for squamous cell lung CA. 4. Atrial fibrillation and ASHD. 5. COPD with emphysema. 6. Prostatic hypertrophy. PLAN 1. The patient will be maintained on O2 at 2.5 liters, nebulized DuoNeb solution added q.i.d. and continue with chest tube to wall suction at -20 cm. 2. Chest x-ray to be repeated in the a.m. 3. We will advised him to use incentive spirometer every 2 hours and chest tube to be clamped in a day or two if he is clinically stable. 4. If there are any signs of infection, he will be placed on antibiotic coverage as well. Thank you Dr. Wakefield for this consultation. MD RALF Castellanos/YASH /7:14 PM /5:38 AM
--- NOTE | 2017-04-08 06:15 | RADRPT ---
EXAM DATE/TIME: 04/08/2017 04:59 [facility] COMPARISON: CHEST SINGLE AP, April 07, 2017, 0:21. INDICATIONS : Short of breath. MEDICAL HISTORY : None. SURGICAL HISTORY : None. ENCOUNTER: Subsequent ACUITY: 1 week PAIN SCORE: 0/10 LOCATION: Bilateral chest FINDINGS: The cardiac silhouette is enlarged in transverse diameter. A right chest tube is in place. There is n o evidence of pneumothorax. There is extensive bilateral pulmonary fibrosis. Multiple old left rib fr actures are present with post therapy changes in the right hilum CONCLUSION: 1. There is no evidence of pneumothorax. Russell Sandoval MD on April 08, 2017 at 6:13 Board Certified Radiologist. This report was verified electronically.
[2017-04-08 07:19] LABS: HEMATOCRIT 30.4 % (39.0-51.0); MEAN CELL VOLUME 87.7 FL (80.0-100.0); MEAN CORPUSCULAR HEMOGLOBIN 28.9 PG (27.0-34.0); MEAN CORPUSCULAR HGB CONC 32.9 % (32.0-36.0); PLATELET COUNT 242 TH/MM3 (150-450); RED BLOOD COUNT 3.46 MIL/MM3 (4.50-5.90); RED CELL DISTRIBUTION WIDTH 28.5 % (11.6-17.2); WHITE BLOOD COUNT 5.6 TH/MM3 (4.0-11.0)
[2017-04-08 07:25] LABS: HEMO FLAGS AUTO DIFF
[2017-04-08 07:34] LABS: BICARBONATE 30.1 MEQ/L (21.0-32.0); POTASSIUM 3.7 MEQ/L (3.5-5.1)
[2017-04-08 08:05] LABS: ACANTHOCYTES 1+ (NORMAL); BANDS 20 % (0-6); KERATOCYTES 2+ (NORMAL); METAMYELOCYTES 1 % (0-1); NEUTROPHIL # MANUAL DIFF 5.1 TH/MM3 (1.8-7.7); OVALOCYTES 2+ (NORMAL); PLATELET ESTIMATE SMEAR NORMAL (NORMAL); PLATELET MORPHOLOGY NORMAL (NORMAL); POLYS (SEG NEUTROPHILS) 70 % (16-70); SCAN/DIFF FINAL DIFF MANUAL; WBC DIFF SAMPLE 100
[2017-04-08] MEDS: DILTIAZEM-CD 180 MG CAP ER PO SCH (09:09)
[2017-04-08] MEDS: DOCUSATE SODIUM 50 MG/SENNA 8.6 MG TAB PO SCH ×2 (09:10→20:53)
[2017-04-08] MEDS: FUROSEMIDE 40 MG TAB PO SCH (09:10)
[2017-04-08] MEDS: MAGNESIUM OXIDE 400 MG TAB PO SCH (09:11)
[2017-04-08] MEDS: PANTOPRAZOLE SOD 40 MG DELAYED RELEASE TAB PO SCH (09:11)
[2017-04-08] MEDS: predniSONE 5 MG TAB PO SCH (09:11)
[2017-04-08] MEDS: SODIUM CHLORIDE 0.9% FLUSH 10 ML FLUSH IV FLUSH SCH ×2 (09:12→20:53)
[2017-04-08] MEDS: POTASSIUM CHLORIDE 20 MEQ CONTROLLED RELEASE TAB PO SCH (09:12)
--- NOTE | 2017-04-08 09:23 | HHI.PR ---
Subjective Remarks Follow-up spontaneous right pneumothorax 04/07/17-patient seen and examined, denies any significant shortness of breath. No chest pain only mild discomfort for about chest tube site insertion. 04/08/17-patient seen and examined, states he has an okay night and denies any chest pain or shortness of breath Objective Vitals Vital Signs Date Time Temp Pulse Resp B/P (MAP) Pulse Ox O2 Delivery O2 Flow Rate FiO2 04/08/17 06:00 70 04/08/17 05:00 76 04/08/17 04:13 96 Nasal Cannula 3.00 04/08/17 04:00 76 04/08/17 03:30 97.5 80 22 111/67 (82) 97 04/08/17 03:00 78 04/08/17 02:00 80 04/08/17 01:00 78 04/08/17 00:00 88 04/07/17 23:00 98.0 84 20 118/75 (89) 97 04/07/17 23:00 82 04/07/17 22:00 82 04/07/17 21:00 92 04/07/17 20:30 97.7 86 20 107/67 (80) 94 04/07/17 20:00 84 04/07/17 19:00 82 04/07/17 18:00 74 04/07/17 17:42 84 04/07/17 17:33 97.4 82 18 102/55 (71) 96 04/07/17 15:00 89 24 107/57 (74) 96 Nasal Cannula 3.00 04/07/17 12:02 91 22 112/75 (87) 96 3.00 I/O 04/07/17 04/07/17 04/07/17 04/08/17 04/08/17 04/08/17 07:00 15:00 23:00 07:00 15:00 23:00 Intake Total 480 ml 240 ml Output Total 408 ml 100 ml 910 ml Balance -408 ml 380 ml -670 ml Intake Oral 480 ml 240 ml Output Urine Total 400 ml 100 ml 900 ml Chest Tube Drainage Total 8 ml 10 ml # Voids 1 1 # Bowel Movements 0 Result Diagram: 04/08/1755404/08/17554 Imaging Last Impressions Chest X-Ray 04/08/17599 Signed Impressions: Service Date/Time: Saturday, April 08, 2017 04:59 - CONCLUSION: 1. There is no evidence of pneumothorax. Russell Sandoval MD Chest CT 04/06/17 1729 Signed Impressions: Service Date/Time: Thursday, April 06, 2017 17:57 - CONCLUSION: 1. Subtotal reexpansion of the right lung following chest tube placement. Small anterior apical pneumothorax persists. 2. Significant airspace disease throughout the right lung with areas of consolidation. 3. Small right pleural effusion 4. Moderate cardiomegaly 5. Pleural-parenchymal scarring left lung Nasim Varma MD Objective Remarks GENERAL: NAD SKIN: Warm and dry. HEAD: Normocephalic. EYES: No scleral icterus. No injection or drainage. NECK: Supple, trachea midline. No JVD or lymphadenopathy. CARDIOVASCULAR: Regular rate and rhythm without murmurs, gallops, or rubs. RESPIRATORY: Breath sounds decreased R>L . No accessory muscle use. Chest tube in place right lung GASTROINTESTINAL: Abdomen soft, non-tender, nondistended. MUSCULOSKELETAL: No cyanosis, or edema. BACK: Nontender without obvious deformity. No CVA tenderness. A/P Problem List: (1) Pneumothorax ICD Code: J93.9 - Pneumothorax, unspecified Status: Acute (2) Total bilirubin, elevated ICD Code: R17 - Unspecified jaundice (3) Myelodysplastic syndrome ICD Code: D46.9 - Myelodysplastic syndrome, unspecified (4) BPH (benign prostatic hyperplasia) ICD Code: N40.0 - Benign prostatic hyperplasia without lower urinary tract symptoms (5) Respiratory distress ICD Code: R06.00 - Respiratory distress Status: Acute (6) Afib ICD Code: I48.91 - Afib Status: Acute (7) Depression ICD Code: F32.9 - Major depressive disorder, single episode, unspecified (8) COPD (chronic obstructive pulmonary disease) ICD Code: J44.9 - Chronic obstructive pulmonary disease, unspecified Assessment and Plan 71-year-old man with Depression disorder Acetaminophen for fever [place]/morphine for pain management Not currently on medication? For depression Atrial fibrillation/chronic rate controlled Hypertension Continue diltiazem 240 mg by mouth daily for A. fib/hypertension Continue Lasix 40 mg daily with potassium chloride 20 mEq daily Continue to hold Apixaban currently with recent chest tube placement. Will resume Apixaban 04/09/17 Echocardiogram 2013 revealed EF 50-55%. 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 Continue incentive spirometry Appreciate input from pulmonary medicine Elevated total bilirubin Low albumin Total bilirubin currently 2.7. LFTs normal Advance diet as tolerated Pantoprazole for GI prophylaxis BPH Continue tamsulosin 0.4 mill grams by mouth daily Chronic prednisone use Continue prednisone 5 mill grams by mouth daily Sliding-scale insulin if indicated Myelodysplastic syndrome History of adenocarcinoma the rectum status post colectomy History of SCC lung status post left lower lobectomy Small cell carcinoma paratracheal node Leukopenia Normocytic anemia Apixaban use DR. Shoemaker is his oncologist, consult when necessary No indication for transfusion of blood products at this time Hold NOAC at this time Obstructive sleep apnea BiPAP when necessary Prophylaxis - GI - pantoprazole - DVT - SCD/holding NOAC secondary to possible need for larger chest tube placement Problem Qualifiers (1) Pneumothorax: Qualified Codes: J93.11 - Primary spontaneous pneumothorax (2) BPH (benign prostatic hyperplasia): Qualified Codes: N40.0 - Benign prostatic hyperplasia without lower urinary tract symptoms (3) Afib: Qualified Codes: I48.2 - Chronic atrial fibrillation (4) Depression: Qualified Codes: F32.9 - Major depressive disorder, single episode, unspecified (5) COPD (chronic obstructive pulmonary disease): Qualified Codes: J44.9 - Chronic obstructive pulmonary disease, unspecified Leonid Wakefield MD Apr 08, 2017 09:23
--- NOTE | 2017-04-08 19:19 | HHI.PR ---
Subjective Remarks He is better. No bleeding at chest tube site. On o2 3 L. CXR shows no Pneumothorax. Objective Vital Signs Date Time Temp Pulse Resp B/P (MAP) Pulse Ox O2 Delivery O2 Flow Rate FiO2 04/08/17 18:00 109 04/08/17 17:00 102 04/08/17 16:21 99 Nasal Cannula 1.00 04/08/17 16:00 90 04/08/17 16:00 98.6 90 20 119/73 (88) 98 04/08/17 15:00 87 04/08/17 14:00 96 04/08/17 13:00 90 04/08/17 12:00 98.7 93 16 113/55 (74) 97 04/08/17 12:00 94 04/08/17 11:00 90 04/08/17 10:20 97 Nasal Cannula 3.00 04/08/17 10:00 80 04/08/17 09:00 84 04/08/17 08:00 78 04/08/17 08:00 97.6 88 15 110/68 (82) 97 04/08/17 07:00 68 04/08/17 06:00 70 04/08/17 05:00 76 04/08/17 04:13 96 Nasal Cannula 3.00 04/08/17 04:00 76 04/08/17 03:30 97.5 80 22 111/67 (82) 97 04/08/17 03:00 78 04/08/17 02:00 80 04/08/17 01:00 78 04/08/17 00:00 88 04/07/17 23:00 98.0 84 20 118/75 (89) 97 04/07/17 23:00 82 04/07/17 22:00 82 04/07/17 21:00 92 04/07/17 20:30 97.7 86 20 107/67 (80) 94 04/07/17 20:00 84 I/O 04/07/17 04/07/17 04/07/17 04/08/17 04/08/17 04/08/17 07:00 15:00 23:00 07:00 15:00 23:00 Intake Total 480 ml 240 ml 240 ml Output Total 408 ml 100 ml 910 ml 250 ml 1100 ml Balance -408 ml 380 ml -670 ml -250 ml -860 ml Intake Oral 480 ml 240 ml 240 ml Output Urine Total 400 ml 100 ml 900 ml 250 ml 1100 ml Chest Tube Drainage Total 8 ml 10 ml # Voids 1 1 1 # Bowel Movements 0 1 Result Diagram: 04/08/1755404/08/17554 Objective Remarks GENERAL: This elderly white male who is alert, pale and in no distress HEENT: Head is normocephalic. Pupils are reactive. Tongue moist. Throat is clear. Nasal mucosa injected. NECK: Supple. No venous distension. No thyromegaly or lymphadenopathy. CHEST: Increased AP diameter with decreased breath sounds over the right mid and lower chest with occasional crackles at bases. HEART: The heart sounds are irregular, S1 and S2. No definite murmur. ABDOMEN: Soft, protuberant without masses. No organomegaly or tenderness. Bowel sounds are active. EXTREMITIES: Mild varicosities. 1 + Edema. Decreased peripheral pulses. Reflexes are 1+ with no gross motor deficits. Cranial nerves grossly intact. SKIN: No lesions observed. Assessment and Plan Assessment and Plan IMPRESSION 1. Spontaneous right pneumothorax resolved. 2. Right basilar atelectasis. 3. History of left lower lobectomy for squamous cell lung CA. 4. Atrial fibrillation and ASHD. 5. COPD with emphysema. 6. Prostatic hypertrophy. Plan : 1. Will Leave chest tube to wall suction _[address] cm[address] in am and Rpt Chest X ray. 3. Continue nebs qid , duoneb. 4. IS at bedside q3h. 5. Will consider D/C Chest tube in am if CXR is stable. Jorge L Avila MD Apr 08, 2017 19:19
[2017-04-08] MEDS: TAMSULOSIN HCL 0.4 MG CAP PO SCH (20:53)
[2017-04-09] VITALS (30 sets, daily range): BP systolic 100–121; BP diastolic 56–73; PULSE 76–110; RESP 16–18; TEMP 97.7–98.8; O2SAT 93–96
[2017-04-09] MEDS: CHLORHEXIDINE GLUCONATE 2 % 1 PACK (2 CLOTHS) TOP SCH (04:00)
[2017-04-09] MEDS: RESP: ALBUTEROL 2.5 MG/IPRATROPIUM 0.5 MG NEB (SCH) INH ×4 (04:15→19:25)
--- NOTE | 2017-04-09 05:26 | RADRPT ---
EXAM DATE/TIME: 04/09/2017 04:56 [facility] COMPARISON: CHEST SINGLE AP, April 08, 2017, 4:59. INDICATIONS : Shortness of breath. MEDICAL HISTORY : Cardiovascular disease. Carcinoma, lung. Carcinoma, colon. Afib, diabetes, rad therapy SURGICAL HISTORY : Lobectomy ENCOUNTER: Subsequent ACUITY: 1 week PAIN SCORE: Non-responsive. LOCATION: Bilateral chest FINDINGS: The cardiac silhouette is normal in transverse diameter. A right chest tube is in place. There is no evidence of pneumothorax. There are chronic fibrotic changes bilaterally. There has been no significa nt change when compared to the prior exam. CONCLUSION: 1. There is no evidence of pneumothorax. Russell Sandoval MD on April 09, 2017 at 5:24 Board Certified Radiologist. This report was verified electronically.
[2017-04-09] MEDS: FUROSEMIDE 40 MG TAB PO SCH (09:00)
[2017-04-09] MEDS: DILTIAZEM-CD 180 MG CAP ER PO SCH ×2 (09:00→10:02)
[2017-04-09] MEDS: POTASSIUM CHLORIDE 20 MEQ CONTROLLED RELEASE TAB PO SCH (09:22)
[2017-04-09] MEDS: DOCUSATE SODIUM 50 MG/SENNA 8.6 MG TAB PO SCH ×2 (09:22→21:25)
[2017-04-09] MEDS: MAGNESIUM OXIDE 400 MG TAB PO SCH (09:22)
[2017-04-09] MEDS: PANTOPRAZOLE SOD 40 MG DELAYED RELEASE TAB PO SCH (09:23)
[2017-04-09] MEDS: SODIUM CHLORIDE 0.9% FLUSH 10 ML FLUSH IV FLUSH SCH ×2 (09:24→21:26)
--- NOTE | 2017-04-09 09:38 | HHI.PR ---
Subjective Remarks Follow-up spontaneous right pneumothorax 04/07/17-patient seen and examined, denies any significant shortness of breath. No chest pain only mild discomfort for about chest tube site insertion. 04/08/17-patient seen and examined, states he has an okay night and denies any chest pain or shortness of breath 04/09/17-patient seen and examined, repeat chest x-ray without any evidence of pneumothorax. Patient denies any shortness of breath or chest pain. Objective Vitals Vital Signs Date Time Temp Pulse Resp B/P (MAP) Pulse Ox O2 Delivery O2 Flow Rate FiO2 04/09/17 09:29 104/59 (74) 04/09/17 09:06 80 04/09/17 08:01 93 04/09/17 08:00 97.7 79 16 102/56 (71) 95 04/09/17 08:00 79 04/09/17 06:00 76 04/09/17 05:00 78 04/09/17 04:00 77 04/09/17 03:00 98.5 93 18 121/73 (89) 96 04/09/17 03:00 81 04/09/17 02:00 87 04/09/17 01:00 92 04/09/17 00:00 86 04/08/17 23:30 97.6 83 18 104/65 (78) 96 04/08/17 23:00 88 04/08/17 22:00 88 04/08/17 21:00 88 04/08/17 20:36 96 Nasal Cannula 1.00 04/08/17 20:30 98.5 85 20 119/68 (85) 96 04/08/17 20:00 92 04/08/17 19:00 84 04/08/17 18:00 109 04/08/17 17:00 102 04/08/17 16:21 99 Nasal Cannula 1.00 04/08/17 16:00 90 04/08/17 16:00 98.6 90 20 119/73 (88) 98 04/08/17 15:00 87 04/08/17 14:00 96 04/08/17 13:00 90 04/08/17 12:00 98.7 93 16 113/55 (74) 97 04/08/17 12:00 94 04/08/17 11:00 90 04/08/17 10:20 97 Nasal Cannula 3.00 04/08/17 10:00 80 I/O 04/08/17 04/08/17 04/08/17 04/09/17 04/09/17 04/09/17 07:00 15:00 23:00 07:00 15:00 23:00 Intake Total 240 ml 240 ml 240 ml Output Total 910 ml 250 ml 1100 ml 950 ml Balance -670 ml -250 ml -860 ml -710 ml Intake Oral 240 ml 240 ml 240 ml Output Urine Total 900 ml 250 ml 1100 ml 950 ml Chest Tube Drainage Total 10 ml # Voids 1 # Bowel Movements 0 1 0 Result Diagram: 04/08/17 0555 04/08/17 0555 Imaging Last Impressions Chest X-Ray 04/09/17 0600 Signed Impressions: Service Date/Time: Sunday, April 09, 2017 04:56 - CONCLUSION: 1. There is no evidence of pneumothorax. Russell Sandoval MD Chest CT 04/06/17 1729 Signed Impressions: Service Date/Time: Thursday, April 06, 2017 17:57 - CONCLUSION: 1. Subtotal reexpansion of the right lung following chest tube placement. Small anterior apical pneumothorax persists. 2. Significant airspace disease throughout the right lung with areas of consolidation. 3. Small right pleural effusion 4. Moderate cardiomegaly 5. Pleural-parenchymal scarring left lung Nasim Varma MD Objective Remarks GENERAL: NAD SKIN: Warm and dry. HEAD: Normocephalic. EYES: No scleral icterus. No injection or drainage. NECK: Supple, trachea midline. No JVD or lymphadenopathy. CARDIOVASCULAR: Regular rate and rhythm without murmurs, gallops, or rubs. RESPIRATORY: Breath sounds decreased R>L . No accessory muscle use. Chest tube in place right lung GASTROINTESTINAL: Abdomen soft, non-tender, nondistended. MUSCULOSKELETAL: No cyanosis, or edema. BACK: Nontender without obvious deformity. No CVA tenderness. A/P Problem List: (1) Pneumothorax ICD Code: J93.9 - Pneumothorax, unspecified Status: Acute (2) Total bilirubin, elevated ICD Code: R17 - Unspecified jaundice (3) Myelodysplastic syndrome ICD Code: D46.9 - Myelodysplastic syndrome, unspecified (4) BPH (benign prostatic hyperplasia) ICD Code: N40.0 - Benign prostatic hyperplasia without lower urinary tract symptoms (5) Respiratory distress ICD Code: R06.00 - Respiratory distress Status: Acute (6) Afib ICD Code: I48.91 - Afib Status: Acute (7) Depression ICD Code: F32.9 - Major depressive disorder, single episode, unspecified (8) COPD (chronic obstructive pulmonary disease) ICD Code: J44.9 - Chronic obstructive pulmonary disease, unspecified Assessment and Plan 71-year-old man with Depression disorder Acetaminophen for fever [place]/morphine for pain management Not currently on medication? For depression Atrial fibrillation/chronic rate controlled Hypertension Continue diltiazem 240 mg by mouth daily for A. fib/hypertension Continue Lasix 40 mg daily with potassium chloride 20 mEq daily Continue to hold Apixaban currently with recent chest tube placement. resume Apixaban 04/09/17 Echocardiogram 2013 revealed EF 50-55%. 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 Continue incentive spirometry Appreciate input from pulmonary medicine Repeat chest x-ray 04/09/17 without any evidence of pneumothorax Likely will discontinue chest x-ray today 04/09/17 Elevated total bilirubin Low albumin Total bilirubin currently 2.7. 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 Shoemaker is his oncologist, consult when necessary No indication for transfusion of blood products at this time Hold NOAC at this time Obstructive sleep apnea BiPAP when necessary Prophylaxis - GI - pantoprazole - DVT - SCD/holding NOAC secondary to possible need for larger chest tube placement Problem Qualifiers (1) Pneumothorax: Qualified Codes: J93.11 - Primary spontaneous pneumothorax (2) BPH (benign prostatic hyperplasia): Qualified Codes: N40.0 - Benign prostatic hyperplasia without lower urinary tract symptoms (3) Afib: Qualified Codes: I48.2 - Chronic atrial fibrillation (4) Depression: Qualified Codes: F32.9 - Major depressive disorder, single episode, unspecified (5) COPD (chronic obstructive pulmonary disease): Qualified Codes: J44.9 - Chronic obstructive pulmonary disease, unspecified Leonid Wakefield MD Apr 09, 2017 09:38
[2017-04-09] MEDS ORDERED: DILTIAZEM-CD 180 MG CAP ER PO ONE (12:15)
--- NOTE | 2017-04-09 13:03 | HHI.PR ---
Subjective Remarks He is better. No bleeding at chest tube site. On o2 3 L. CXR shows no Pneumothorax.Tube was clamped. Objective Vital Signs Date Time Temp Pulse Resp B/P (MAP) Pulse Ox O2 Delivery O2 Flow Rate FiO2 04/09/17 12:00 110 04/09/17 11:00 97.8 102 17 106/60 (75) 95 04/09/17 10:01 114/63 (80) 04/09/17 10:00 110 04/09/17 09:29 104/59 (74) 04/09/17 09:06 80 04/09/17 08:01 93 04/09/17 08:00 97.7 79 16 102/56 (71) 95 04/09/17 08:00 79 04/09/17 06:00 76 04/09/17 05:00 78 04/09/17 04:00 77 04/09/17 03:00 98.5 93 18 121/73 (89) 96 04/09/17 03:00 81 04/09/17 02:00 87 04/09/17 01:00 92 04/09/17 00:00 86 04/08/17 23:30 97.6 83 18 104/65 (78) 96 04/08/17 23:00 88 04/08/17 22:00 88 04/08/17 21:00 88 04/08/17 20:36 96 Nasal Cannula 1.00 04/08/17 20:30 98.5 85 20 119/68 (85) 96 04/08/17 20:00 92 04/08/17 19:00 84 04/08/17 18:00 109 04/08/17 17:00 102 04/08/17 16:21 99 Nasal Cannula 1.00 04/08/17 16:00 90 04/08/17 16:00 98.6 90 20 119/73 (88) 98 04/08/17 15:00 87 04/08/17 14:00 96 I/O 04/08/17 04/08/17 04/08/17 04/09/17 04/09/17 04/09/17 07:00 15:00 23:00 07:00 15:00 23:00 Intake Total 240 ml 240 ml 240 ml Output Total 910 ml 250 ml 1100 ml 950 ml Balance -670 ml -250 ml -860 ml -710 ml Intake Oral 240 ml 240 ml 240 ml Output Urine Total 900 ml 250 ml 1100 ml 950 ml Chest Tube Drainage Total 10 ml # Voids 1 # Bowel Movements 0 1 0 Result Diagram: 04/08/1755404/08/17554 Objective Remarks GENERAL: This elderly white male who is alert, pale and in distress HEENT: Head is normocephalic. Pupils are reactive. Tongue moist. Throat is clear. Nasal mucosa injected. NECK: Supple. No venous distension. No thyromegaly or lymphadenopathy. CHEST: Increased AP diameter with decreased breath sounds over the right mid and lower chest with occasional crackles at bases. HEART: The heart sounds are irregular, S1 and S2. No definite murmur. ABDOMEN: Soft, protuberant without masses. No organomegaly or tenderness. Bowel sounds are active. EXTREMITIES: Mild varicosities. 1 + Edema. Decreased peripheral pulses. Reflexes are 1+ with no gross motor deficits. Cranial nerves grossly intact. SKIN: No lesions observed. Assessment and Plan Assessment and Plan IMPRESSION 1. Spontaneous right pneumothorax resolved. 2. Right basilar atelectasis. 3. History of left lower lobectomy for squamous cell lung CA. 4. Atrial fibrillation and ASHD. 5. COPD with emphysema. 6. Prostatic hypertrophy. Plan : 1.D/C chest tube wall suction 2 Clamp Chest Tube 3. Continue nebs qid , duoneb. 4. IS at bedside q3h. 5. Remove Chest tube if OK with Radiology Jorge L Avila MD Apr 09, 2017 13:03
--- NOTE | 2017-04-09 17:00 | RADRPT ---
EXAM DATE/TIME: 04/09/2017 16:32 [facility] COMPARISON: CT THORAX W/O CONTRAST, April 06, 2017, 17:57. CHEST SINGLE AP, April 08, 2017, 4:59. CHEST SIN GLE AP, April 09, 2017, 4:56. INDICATIONS : Evaluate for right pneumothorax. Chest tube clamped MEDICAL HISTORY : Cardiovascular disease. Carcinoma, lung. Carcinoma, colon. Afib. diabetes, rad therapy SURGICAL HISTORY : Lobectomy ENCOUNTER: Subsequent ACUITY: 1 week PAIN SCORE: Non-responsive. LOCATION: Bilateral chest FINDINGS: Portable AP view of the chest obtained during expiration demonstrates a normal-sized cardiac silhouet te with calcification of the aorta. No pneumothorax is identified. There is a pigtail pleural cathete r overlying the inferior right hemithorax. There is chronic elevation left hemidiaphragm with multipl e old left rib fractures. CONCLUSION: No pneumothorax is visualized. Ryan Melgoza MD on April 09, 2017 at 16:57 Board Certified Radiologist. This report was verified electronically.
[2017-04-09] MEDS: TAMSULOSIN HCL 0.4 MG CAP PO SCH (21:26)
[2017-04-10] VITALS (18 sets, daily range): BP systolic 94–105; BP diastolic 54–60; PULSE 63–100; RESP 18; TEMP 98–98.8; O2SAT 93–98
[2017-04-10] MEDS: RESP: ALBUTEROL 2.5 MG/IPRATROPIUM 0.5 MG NEB (SCH) INH ×3 (03:03→15:40)
[2017-04-10] MEDS: CHLORHEXIDINE GLUCONATE 2 % 1 PACK (2 CLOTHS) TOP SCH (04:00)
--- NOTE | 2017-04-10 05:12 | RADRPT ---
EXAM DATE/TIME: 04/10/2017 04:26 [facility] COMPARISON: CHEST SINGLE AP, April 09, 2017, 16:32. INDICATIONS : Shortness of breath, possible pulmonary disease. MEDICAL HISTORY : Cardiovascular disease. Carcinoma, colon. Carcinoma, lung. A-Fib Diabetes SURGICAL HISTORY : Lobectomy. ENCOUNTER: Subsequent ACUITY: 1 week PAIN SCORE: 3/10 LOCATION: Bilateral chest FINDINGS: The cardiac silhouette is normal in transverse diameter. The chest tube has been removed. There is no evidence of pneumothorax. There are chronic fibrotic changes bilaterally. CONCLUSION: 1. There is no evidence of pneumothorax. Russell Sandvoal MD on April 10, 2017 at 5:10 Board Certified Radiologist. This report was verified electronically.
[2017-04-10] MEDS: DILTIAZEM-CD 180 MG CAP ER PO SCH (09:00)
[2017-04-10] MEDS: FUROSEMIDE 40 MG TAB PO SCH (09:00)
[2017-04-10] MEDS ORDERED: RIVAROXABAN 20 MG TAB PO SCH (09:00)
--- NOTE | 2017-04-10 09:39 | HHI.PR ---
Subjective Remarks Follow-up spontaneous right pneumothorax 04/07/17-patient seen and examined, denies any significant shortness of breath. No chest pain only mild discomfort for about chest tube site insertion. 04/08/17-patient seen and examined, states he has an okay night and denies any chest pain or shortness of breath 04/09/17-patient seen and examined, repeat chest x-ray without any evidence of pneumothorax. Patient denies any shortness of breath or chest pain. 04/10/17-patient seen and examined, chest tube was removed yesterday. This morning patients after walking oxygen saturation dropped to 88% but denies any shortness of breath. Objective Vitals Vital Signs Date Time Temp Pulse Resp B/P (MAP) Pulse Ox O2 Delivery O2 Flow Rate FiO2 04/10/17 09:04 98 04/10/17 07:30 98.6 88 18 94/55 (68) 93 04/10/17 06:00 72 04/10/17 05:00 74 04/10/17 04:00 87 04/10/17 03:00 79 04/10/17 03:00 98.8 84 18 95/60 (72) 95 04/10/17 02:00 77 04/10/17 01:02 76 04/10/17 00:00 76 04/09/17 23:00 86 04/09/17 23:00 97.9 86 18 100/60 (73) 95 04/09/17 22:00 81 04/09/17 21:00 94 04/09/17 20:00 91 04/09/17 19:26 95 04/09/17 19:00 96 04/09/17 19:00 98.8 96 18 112/64 (80) 94 04/09/17 18:00 92 04/09/17 17:00 92 04/09/17 16:00 94 04/09/17 15:30 98.0 89 18 107/65 (79) 04/09/17 15:00 94 04/09/17 14:00 106 04/09/17 13:00 108 04/09/17 12:00 110 04/09/17 11:30 102 04/09/17 11:00 97.8 102 17 106/60 (75) 95 04/09/17 10:01 114/63 (80) 04/09/17 10:00 110 I/O 04/09/17 04/09/17 04/09/17 04/10/17 04/10/17 04/10/17 06:59 14:59 22:59 06:59 14:59 22:59 Intake Total 240 ml 840 ml 400 ml Output Total 950 ml 550 ml 200 ml Balance -710 ml 290 ml 200 ml Intake Oral 240 ml 840 ml 400 ml Output Urine Total 950 ml 550 ml 200 ml Chest Tube Drainage Total 0 ml # Voids 2 # Bowel Movements 0 Result Diagram: 04/08/17 0555 04/08/17 0555 Imaging Last Impressions Chest X-Ray 04/10/17 0600 Signed Impressions: Service Date/Time: March 04:26 - CONCLUSION: 1. There is no evidence of pneumothorax. Russell Sandoval MD Chest CT 04/06/17 1729 Signed Impressions: Service Date/Time: Thursday, April 06, 2017 17:57 - CONCLUSION: 1. Subtotal reexpansion of the right lung following chest tube placement. Small anterior apical pneumothorax persists. 2. Significant airspace disease throughout the right lung with areas of consolidation. 3. Small right pleural effusion 4. Moderate cardiomegaly 5. Pleural-parenchymal scarring left lung Nasim Varma MD Objective Remarks GENERAL: NAD SKIN: Warm and dry. HEAD: Normocephalic. EYES: No scleral icterus. No injection or drainage. NECK: Supple, trachea midline. No JVD or lymphadenopathy. CARDIOVASCULAR: Regular rate and rhythm without murmurs, gallops, or rubs. RESPIRATORY: Breath sounds decreased R>L . No accessory muscle use. GASTROINTESTINAL: Abdomen soft, non-tender, nondistended. MUSCULOSKELETAL: No cyanosis, or edema. BACK: Nontender without obvious deformity. No CVA tenderness. Procedures Chest tube placement and removal A/P Problem List: (1) Pneumothorax ICD Code: J93.9 - Pneumothorax, unspecified Status: Acute (2) Total bilirubin, elevated ICD Code: R17 - Unspecified jaundice (3) Myelodysplastic syndrome ICD Code: D46.9 - Myelodysplastic syndrome, unspecified (4) BPH (benign prostatic hyperplasia) ICD Code: N40.0 - Benign prostatic hyperplasia without lower urinary tract symptoms (5) Respiratory distress ICD Code: R06.00 - Respiratory distress Status: Acute (6) Afib ICD Code: I48.91 - Afib Status: Acute (7) Depression ICD Code: F32.9 - Major depressive disorder, single episode, unspecified (8) COPD (chronic obstructive pulmonary disease) ICD Code: J44.9 - Chronic obstructive pulmonary disease, unspecified (9) Hypoxemia ICD Code: R09.02 - Hypoxemia Assessment and Plan 71-year-old man with Depression disorder Acetaminophen for fever [place]/morphine for pain management Not currently on medication? For depression Atrial fibrillation/chronic rate controlled Hypertension Continue diltiazem 240 mg by mouth daily for A. fib/hypertension Continue Lasix 40 mg daily with potassium chloride 20 mEq daily Patient state is no longer on Xarelto, will start Eliquis 5 mg by mouth twice a day today 04/10/17 Echocardiogram 2013 revealed EF 50-55%. 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 Continue incentive spirometry Appreciate input from pulmonary medicine Repeat chest x-ray 04/10/17 without any evidence of pneumothorax Hypoxemia Patient will require home oxygen on discharge as other alternative measures were tried and were ineffective as patient failed respiratory walk test today Elevated total bilirubin Low albumin Total bilirubin currently 2.7. 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 Shoemaker is his oncologist, consult when necessary No indication for transfusion of blood products at this time Hold NOAC at this time Obstructive sleep apnea BiPAP when necessary Prophylaxis - GI - pantoprazole - DVT - SCD/holding NOAC secondary to possible need for larger chest tube placement Problem Qualifiers (1) Pneumothorax: Qualified Codes: J93.11 - Primary spontaneous pneumothorax (2) BPH (benign prostatic hyperplasia): Qualified Codes: N40.0 - Benign prostatic hyperplasia without lower urinary tract symptoms (3) Afib: Qualified Codes: I48.2 - Chronic atrial fibrillation (4) Depression: Qualified Codes: F32.9 - Major depressive disorder, single episode, unspecified (5) COPD (chronic obstructive pulmonary disease): Qualified Codes: J44.9 - Chronic obstructive pulmonary disease, unspecified Leonid Wakefield MD Apr 10, 2017 09:39
[2017-04-10] MEDS ORDERED: APIX5TAB PO (09:41)
--- NOTE | 2017-04-10 09:46 | HHI.DS ---
Discharge Summary Admission Date Apr 06, 2017 at 19:23 Discharge Date: Apr 10, 2017 Admitting Diagnosis spontaneous pneumothorax (1) Pneumothorax ICD Code: J93.9 - Pneumothorax, unspecified Diagnosis: Principal Status: Acute (2) Total bilirubin, elevated ICD Code: R17 - Unspecified jaundice Diagnosis: Principal (3) Myelodysplastic syndrome ICD Code: D46.9 - Myelodysplastic syndrome, unspecified Diagnosis: Principal (4) BPH (benign prostatic hyperplasia) ICD Code: N40.0 - Benign prostatic hyperplasia without lower urinary tract symptoms Diagnosis: Secondary (5) Respiratory distress ICD Code: R06.00 - Respiratory distress Diagnosis: Principal Status: Acute (6) Afib ICD Code: I48.91 - Afib Diagnosis: Principal Status: Acute (7) Depression ICD Code: F32.9 - Major depressive disorder, single episode, unspecified Diagnosis: Secondary (8) COPD (chronic obstructive pulmonary disease) ICD Code: J44.9 - Chronic obstructive pulmonary disease, unspecified Diagnosis: Principal Procedures Chest tube placement and removal Brief History - From Admission This is a 71-year-old male. Date of admission 04/06/2017. 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 Patient was admitted 07/09 with spontaneous pneumothorax on the right. Was seen in consultation by Dr. Zacarias and had multiple chest tubes plate at that time. She was discharged home with no recurrence. Patient presents [facility] to [facility] with acute shortness of breath. CT thorax revealed a large right total throat without tension features. The catheter was placed by ED physician with incomplete resolution. Patient is currently on minus 20 cm H2O. This will be increased -40. Patient is currently 2 L nasal cannula and is resting comfortable at the present time. Patient denies any trauma, recent travels or inciting events for pneumothorax CBC/BMP: 04/08/17 0555 04/08/17 0555 Significant Findings Laboratory Tests Test 04/08/17 05:55 Red Blood Count 3.46 MIL/MM3 (4.50-5.90) Hemoglobin 10.0 GM/DL (13.0-17.0) Hematocrit 30.4 % (39.0-51.0) Red Cell Distribution Width 28.5 % (11.6-17.2) Mean Platelet Volume 12.0 FL (7.0-11.0) Band Neutrophils % 20 % (0-6) Lymphocytes % 7 % (9-44) Ovalocytes 2+ (NORMAL) Acanthocytes 1+ (NORMAL) Keratocytes 2+ (NORMAL) Blood Urea Nitrogen 29 MG/DL (7-18) PE at Discharge GENERAL: NAD SKIN: Warm and dry. HEAD: Normocephalic. EYES: No scleral icterus. No injection or drainage. NECK: Supple, trachea midline. No JVD or lymphadenopathy. CARDIOVASCULAR: Regular rate and rhythm without murmurs, gallops, or rubs. RESPIRATORY: Breath sounds decreased R>L . No accessory muscle use. GASTROINTESTINAL: Abdomen soft, non-tender, nondistended. MUSCULOSKELETAL: No cyanosis, or edema. BACK: Nontender without obvious deformity. No CVA tenderness. Hospital Course Patient admitted and diagnosed with spontaneous right pneumothorax for which a pigtail chest tube was placed to pulmonary medicine was consulted for management and daily follow-up x-rays were obtained. Subsequently improvement of pneumothorax. Chest tube was discontinued and follow-up x-ray did not reveal any evidence of pneumothorax. Patient was continued on his medication for hypertension, depression and other chronic medical conditions. Prior to discharge, a walk test was performed for which patient will be requiring home oxygen. Pt Condition on Discharge: Stable Discharge Disposition: Discharge Home Discharge Time: <= 30 minutes Discharge Instructions DIET: Follow Instructions for: Heart Healthy Diet Activities you can perform: Regular-No Restrictions Follow up Referrals: PCP Follow-up - 1 Week Pulmonology New Medications: Oxygen (O2) (Oxygen (O2)) Device LITER YOU.CANULA CONTINUOUS for Prevent Hypoxemia, #2 Oxygen Concentrator Portable Gaseous 2 L/min via Nasal Canula Continuous For 99 months Apixaban (Eliquis) 5 Mg Tab 5 MG PO BID for Prevent Blood Clot, #60 TAB Continued Medications: Albuterol 18 GM Inh (Ventolin Hfa 18 GM Inh) 90 Mcg/Act Aer 1-2 PUFF INH Q4-6H PRN for SHORTNESS OF BREATH, #1 INHALER 0 Refills Azelastine Nasal [place] (Azelastine Nasal [place]) 0.1% [place] 1 SPRAY EACH NARE DAILY for Allergies, #1 BOTTLE 0 Refills Cholecalciferol (D3) 1,000 Unit Tab 5 PO DAILY Coenzyme Q10 (Ubidecarenone) (Coq-10 Tr) 100 Mg Cap 2 CAP PO DAILY Cyanocobalamin (B12) 1,000 Mcg Tab 5000 PO DAILY Diltiazem CD 24 HR (Cardizem CD 24 HR) 180 Mg Caper 360 MG PO DAILY for afib, #30 CAP Furosemide (Lasix) 40 Mg Tab 40 MG PO DAILY, #30 TAB 0 Refills Ipratropium-Albuterol Neb (Duoneb) 0.5-2.5 Mg/3 Ml Neb 1 VIAL NEB QID PRN for SHORTNESS OF BREATH, #30 NEBULE 0 Refills Magnesium Oxide (Magnesium Oxide) 400 Mg Tab 400 MG PO DAILY for Nutritional Supplement, TAB 0 Refills Multiple Vitamins W/ Iron (Multi-Day) 1 Tab Tab PO DAILY Potassium Chloride ER (Potassium Chloride ER) 20 Meq Tab 20 MEQ PO DAILY for Electrolyte Replacement, #30 TAB 0 Refills Prednisone (Prednisone) 5 Mg Tab 5 MG PO EVERY OTHER DAY, TAB 0 Refills Tamsulosin (Tamsulosin) 0.4 Mg Cap 0.4 MG PO HS for Manage Prostate Problems, #30 CAP 0 Refills Discontinued Medications: Rivaroxaban (Xarelto) 20 Mg Tab 20 MG PO DAILY for Blood Clot Prevention, TAB 0 Refills Leonid Wakefield MD Apr 10, 2017 09:46
[2017-04-10] MEDS: DOCUSATE SODIUM 50 MG/SENNA 8.6 MG TAB PO SCH (09:56)
[2017-04-10] MEDS: PANTOPRAZOLE SOD 40 MG DELAYED RELEASE TAB PO SCH (09:56)
[2017-04-10] MEDS: POTASSIUM CHLORIDE 20 MEQ CONTROLLED RELEASE TAB PO SCH (09:56)
[2017-04-10] MEDS: predniSONE 5 MG TAB PO SCH (09:56)
[2017-04-10] MEDS: MAGNESIUM OXIDE 400 MG TAB PO SCH (09:56)
[2017-04-10] MEDS ORDERED: OXYGENDME NAS.CANULA (10:15)
[2017-04-10] MEDS ORDERED: APIXABAN 5 MG TABLET PO SCH (10:30)
--- NOTE | 2017-04-10 12:24 | HHI.PR ---
Subjective Remarks Chest tube was out and has no pneumo.. No bleeding at chest tube site. On o2 2 L. CXR shows no Pneumothorax today. Objective Vital Signs Date Time Temp Pulse Resp B/P (MAP) Pulse Ox O2 Delivery O2 Flow Rate FiO2 04/10/17 09:56 2.00 04/10/17 09:04 98 04/10/17 07:30 63 04/10/17 07:30 98.6 88 18 94/55 (68) 93 04/10/17 06:00 72 04/10/17 05:00 74 04/10/17 04:00 87 04/10/17 03:00 79 04/10/17 03:00 98.8 84 18 95/60 (72) 95 04/10/17 02:00 77 04/10/17 01:02 76 04/10/17 00:00 76 04/09/17 23:00 86 04/09/17 23:00 97.9 86 18 100/60 (73) 95 04/09/17 22:00 81 04/09/17 21:00 94 04/09/17 20:00 91 04/09/17 19:26 95 04/09/17 19:00 96 04/09/17 19:00 98.8 96 18 112/64 (80) 94 04/09/17 18:00 92 04/09/17 17:00 92 04/09/17 16:00 94 04/09/17 15:30 98.0 89 18 107/65 (79) 04/09/17 15:00 94 04/09/17 14:00 106 04/09/17 13:00 108 I/O 04/09/17 04/09/17 04/09/17 04/10/17 04/10/17 04/10/17 07:00 15:00 23:00 07:00 15:00 23:00 Intake Total 240 ml 840 ml 400 ml Output Total 950 ml 550 ml 200 ml Balance -710 ml 290 ml 200 ml Intake Oral 240 ml 840 ml 400 ml Output Urine Total 950 ml 550 ml 200 ml Chest Tube Drainage Total 0 ml # Voids 2 # Bowel Movements 0 Result Diagram: 04/08/17 0555 04/08/17 05 Objective Remarks GENERAL: This elderly white male who is alert, pale and in distress HEENT: Head is normocephalic. Pupils are reactive. Tongue moist. Throat is clear. Nasal mucosa clear NECK: Supple. No venous distension. No thyromegaly or lymphadenopathy. CHEST: Increased AP diameter with decreased breath sounds over the right mid and lower chest. HEART: The heart sounds are irregular, S1 and S2. No definite murmur. ABDOMEN: Soft, protuberant without masses. No organomegaly or tenderness. Bowel sounds are active. EXTREMITIES: Mild varicosities. 1 + Edema. Decreased peripheral pulses. Reflexes are 1+ with no gross motor deficits. SKIN: No lesions observed. Assessment and Plan Assessment and Plan IMPRESSION 1. Spontaneous right pneumothorax resolved. 2. Right basilar atelectasis. 3. History of left lower lobectomy for squamous cell lung CA. 4. Atrial fibrillation and ASHD. 5. COPD with emphysema. 6. Prostatic hypertrophy. Plan : 1. Clean and dress wound in chest daily. 2 OK to go home 3. Ventolin HFA , 2 puffs tid prn 4.O2 2 L at home prn.and HS 5.F/U with primary Jorge L Gross MD Apr 10, 2017 12:24
== END 2017-04-10 14:15 | disposition home or self-care (01) | DRG 201 ==
LOC: NEPC 13:44 → NEDA 19:23 → NEDH 23:34 → HCIN 04-07 17:21
PROVIDERS: ADMIT Hospitalist; ATTEND Hospitalist
PROC: 0W9930Z Drainage of Right Pleural Cavity with Drainage Device, Percutaneous Approach (ICD-10-PCS; principal; 2017-04-06)
DX: J93.11 Primary spontaneous pneumothorax (principal); Z99.81 Dependence on supplemental oxygen; R06.03 Acute respiratory distress; I48.2 Chronic atrial fibrillation; J44.9 Chronic obstructive pulmonary disease, unspecified; D46.9 Myelodysplastic syndrome, unspecified; N40.0 Benign prostatic hyperplasia without lower urinary tract symptoms; E78.5 Hyperlipidemia, unspecified; F32.9 Major depressive disorder, single episode, unspecified; I25.10 Atherosclerotic heart disease of native coronary artery without angina pectoris; G47.33 Obstructive sleep apnea (adult) (pediatric); Z87.891 Personal history of nicotine dependence; Z79.01 Long term (current) use of anticoagulants; F41.9 Anxiety disorder, unspecified; Z79.52 Long term (current) use of systemic steroids
CPT/HCPCS: 32551; 71010; 71250; 80048; 80053; 83735; 83880; 84100; 84484; 85007; 85027; 85610; 85730; 94150; 94620; 94640; 94664; 96374; J2270; J2930; J7030; J7512

== ENCOUNTER 2017-07-09 09:45 | Emergency (ER) | payer OTHER ==
[~2017-07-09] VITALS: Ht 185.4 cm; Wt 107.0 kg
[~2017-07-09 09:45] MED LIST changes: +APIX5TAB PO; +OXYGENDME NAS.CANULA; -XARE20TA PO
[2017-07-09 09:48] VITALS: BP 153/64; PULSE 94; RESP 26; TEMP 97.7; O2SAT 89
[2017-07-09] MEDS ORDERED: SODIUM CHLORIDE 0.9% FLUSH 10 ML FLUSH IVF PRN (11:30)
--- NOTE | 2017-07-09 11:37 | PD ---
HPI Chief Complaint: Respiratory Distress Time Seen by Provider: 11:18 Travel History International Travel<30 days: No Contact w/Intl Traveler<30days: No Traveled to known affect area: No History of Present Illness HPI 71-year-old male with history of A. fib, lung cancer, spontaneous pneumothorax, and COPD presents to the emergency room for evaluation of worsening shortness of breath over the past 3 days. States this morning, his pulse ox was the lowest it has been at 89%. States it gradually improved over time. He took Levaquin and a nebulizer treatment with moderate improvement in symptoms. Patient saw his automobile damage field appraiser yesterday, Dr. Zacarias, who put him on Levaquin and ordered an outpatient CT of the chest. He has not had the CT performed yet. Patient reports history of 100-101 fever yesterday as well as mild congestion and worsening cough. Cough was productive of bloody sputum one time. Denies any nausea, vomiting, chest pain. His oxygen saturation is typically 95% and he is on 2 L as needed at home. PFSH Past Medical History Hx Anticoagulant Therapy: Yes Arthritis: Yes Asthma: No Atrial Fibrillation: Yes Blood Disorders: Yes (LOW PLATELETS) Anxiety: Yes Depression: No Heart Rhythm Problems: Yes (A-FIB) Cancer: Yes (COLON, LEFT LUNG) Cardiovascular Problems: Yes (A-FIB) High Cholesterol: Yes Chemotherapy: Yes (COMPLETED IN NOVEMBER 2013) Chest Pain: Yes Congestive Heart Failure: No COPD: Yes Coronary Artery Disease: Yes Diabetes: Yes (BORDERLINE) Patient Takes Glucophage: No Endocrine: No Gastrointestinal Disorders: Yes (COLON CANCER HX) GERD: No Genitourinary: No Hepatitis: No Hiatal Hernia: No Hypertension: Yes Immune Disorder: No Musculoskeletal: Yes Neurologic: No Psychiatric: No Reproductive: No Respiratory: Yes (COPD ON O2 NEEDED) Myocardial Infarction: No Radiation Therapy: Yes (RAD FINISHED JAN 27 2014) Seizures: No Sleep Apnea: Yes Thyroid Disease: No Ulcer: No Past Surgical History Abdominal Surgery: Yes AICD: No Arteriovenous Shunt: No Cardiac Surgery: No Ear Surgery: No Endocrine Surgery: No Eye Surgery: No Genitourinary Surgery: No Gynecologic Surgery: No Insulin Pump: No Joint Replacement: No Oral Surgery: No Pacemaker: No Thoracic Surgery: Yes Other Surgery: Yes Social History Alcohol Use: No Tobacco Use: No (QUIT 16 YRS AGO) Substance Use: No Allergies-Medications (Allergen,Severity, Reaction): Coded Allergies: adhesive (Unverified Allergy, Severe, Rash, 07/09/17) diatrizoate meglumine (Unverified Allergy, Severe, Hives, 07/09/17) gadobenic acid (Unverified Allergy, Severe, Hives, 07/09/17) gadodiamide (Unverified Allergy, Severe, Hives, 07/09/17) gadoteridol (Unverified Allergy, Severe, Hives, 07/09/17) iodixanol (Unverified Allergy, Severe, Hives, 07/09/17) iohexol (Unverified Allergy, Severe, Hives, 07/09/17) Reported Meds & Prescriptions Reported Meds & Active Scripts Active Oxygen (O2) Device Liter YOU.CANULA CONTINUOUS Oxygen Concentrator Portable Gaseous 2 L/min via Nasal Canula Continuous For 99 months Eliquis (Apixaban) 5 Mg Tab 5 Mg PO BID Cardizem CD 24 HR (Diltiazem CD 24 HR) 180 Mg Caper 360 Mg PO DAILY Reported Prednisone 5 Mg Tab 5 Mg PO EVERY OTHER DAY D3 (Cholecalciferol) 1,000 Unit Tab 5 PO DAILY Coq-10 Tr (Coenzyme Q10 (Ubidecarenone)) 100 Mg Cap 2 Cap PO DAILY B12 (Cyanocobalamin) 1,000 Mcg Tab 5,000 PO DAILY Multi-Day (Multiple Vitamins W/ Iron) 1 Tab Tab PO DAILY Ventolin Hfa 18 GM Inh (Albuterol Sulfate) 90 Mcg/Act Aer 1-2 Puff INH Q4-6H PRN Tamsulosin (Tamsulosin HCl) 0.4 Mg Cap 0.4 Mg PO HS Potassium Chloride ER (Potassium Chloride) 20 Meq Tab 20 Meq PO DAILY Magnesium Oxide 400 Mg Tab 400 Mg PO DAILY Duoneb (Ipratropium-Albuterol Neb) 0.5-2.5 Mg/3 Ml Neb 1 Vial NEB QID PRN Lasix (Furosemide) 40 Mg Tab 40 Mg PO DAILY Azelastine Nasal [place] (Azelastine HCl) 0.1% [place] 1 [place] EACH NARE DAILY Review of Systems Except as stated in HPI: all other systems reviewed are Neg Physical Exam Narrative GENERAL: Well-nourished, well-developed male in no acute distress. Afebrile. Ambulatory. SKIN: Focused skin assessment warm/dry. HEAD: Normocephalic. EYES: No scleral icterus. No injection or drainage. NECK: Supple, trachea midline. No JVD or lymphadenopathy. CARDIOVASCULAR: Regular rate and rhythm without murmurs, gallops, or rubs. RESPIRATORY: Breath sounds equal bilaterally. Mild increased work of breathing. Lungs sounds are distant with wheezing bilaterally. No crackles, rales, or rhonchi appreciated. PSYCHIATRIC: No delusional thought processes. No hallucinations. Data Data Last Documented VS Vital Signs Date Time Temp Pulse Resp B/P (MAP) Pulse Ox O2 Delivery O2 Flow Rate FiO2 07/09/17 10:14 94 Nasal Cannula 3.00 07/09/17 09:48 97.7 94 26 153/64 (93) Orders Orders Complete Blood Count With Diff (07/09/17 11:25) Comprehensive Metabolic Panel (07/09/17 11:25) Act Partial Throm Time (Ptt) (07/09/17 11:25) Prothrombin Time / Inr (Pt) (07/09/17 11:25) Ckmb (Isoenzyme) Profile (07/09/17 11:25) Troponin I (07/09/17 11:25) Influenzae A/B Antigen (07/09/17 11:25) Blood Culture (07/09/17 11:25) Iv Access Insert/Monitor (07/09/17 11:25) Electrocardiogram (07/09/17 11:25) Ecg Monitoring (07/09/17 11:25) Oximetry (07/09/17 11:25) Oxygen Administration (07/09/17 11:25) Sodium Chloride 0.9% Flush (Ns Flush) (07/09/17 11:30) Ct Thorax/ Chest Wo Iv Contras (07/09/17 ) Lactic Acid Sepsis Protocol (07/09/17 11:25) Chest, Single Ap (07/09/17 ) CKMB (07/09/17 11:30) CKMB% (07/09/17 11:30) Methylprednisolone So Succ Inj (Solumedr (07/09/17 13:30) Ed Discharge Order (07/09/17 13:21) Labs Laboratory Tests Test 07/09/17 11:30 07/09/17 11:53 White Blood Count 2.8 TH/MM3 Red Blood Count 3.45 MIL/MM3 Hemoglobin 9.5 GM/DL Hematocrit 28.9 % Mean Corpuscular Volume 83.8 FL Mean Corpuscular Hemoglobin 27.7 PG Mean Corpuscular Hemoglobin Concent 33.0 % Red Cell Distribution Width 31.7 % Platelet Count 289 TH/MM3 Mean Platelet Volume 12.1 FL CBC Comment AUTO DIFF Differential Total Cells Counted 100 Neutrophils % (Manual) 46 % Band Neutrophils % 19 % Lymphocytes % 9 % Monocytes % 3 % Eosinophils % 2 % Basophils % 3 % Neutrophils # (Manual) 2.3 TH/MM3 Metamyelocytes 16 % Myelocytes 2 % Nucleated Red Blood Cells 4 /100 WBC Differential Comment FINAL DIFF MANUAL Toxic Granulation 1+ Toxic Vacuolation PRESENT Platelet Estimate NORMAL Platelet Morphology Comment ENLARGED Ovalocytes 1+ Acanthocytes 2+ Prothrombin Time 12.6 SEC Prothromb Time International Ratio 1.2 RATIO Activated Partial Thromboplast Time 27.1 SEC Blood Urea Nitrogen 18 MG/DL Creatinine 1.05 MG/DL Random Glucose 111 MG/DL Total Protein 7.9 GM/DL Albumin 3.5 GM/DL Calcium Level 9.2 MG/DL Alkaline Phosphatase 69 U/L Aspartate Amino Transf (AST/SGOT) 48 U/L Alanine Aminotransferase (ALT/SGPT) 19 U/L Total Bilirubin 2.4 MG/DL Sodium Level 134 MEQ/L Potassium Level 5.0 MEQ/L Chloride Level 99 MEQ/L Carbon Dioxide Level 27.2 MEQ/L Anion Gap 8 MEQ/L Estimat Glomerular Filtration Rate 70 ML/MIN Total Creatine Kinase 158 U/L Creatine Kinase MB 0.6 NG/ML Troponin I LESS THAN 0.02 NG/ML Lactic Acid Level 1.3 mmol/L MDM Medical Decision Making Medical Screen Exam Complete: Yes Emergency Medical Condition: Yes Medical Record Reviewed: Yes Differential Diagnosis COPD exacerbation, influenza, respiratory insufficiency, pneumothorax, pneumonia , lung cancer Narrative Course 71-year-old male with history of A. fib, COPD, lung cancer, spontaneous pneumothorax presents to the emergency room for evaluation of worsening shortness of breath over the past 3 days. He has had associated fever of 101 yesterday. Patient saw his automobile damage field appraiser yesterday and was placed on Levaquin. States he feels slightly better after taking medication. Patient is afebrile in the ED. Mild increased work of breathing. Lungs sounds are distant with wheezing bilaterally. He is 96% on 3 L of oxygen. IV access established and basic labs obtained. EKG shows a flutter with rate of [address] changes. Signed off by my attending physician. CBC is remarkable for WBC of 2.8 and Hgb of 9.5 which are similar to previous. CMP is essentially unremarkable. Lactic acid is 1.3. Troponin and CK-MB are unremarkable. Influenza is negative. Chest x-ray shows small left pleural effusion. CT of the chest shows extensive consolidation in the medial right lung similar to March 2017. No new infiltrate or masses identified. Small bilateral pleural effusions. There is underlying interstitial lung disease with emphysema in the apices. Patient is already on Levaquin and increased his daily prednisone from 5 mg to 10 mg over the past 2 days. He has oxygen at home. There is no evidence of failed outpatient therapy and he is overall very well appearing. My attending physician saw and assessed the patient and agrees with plan and disposition. Patient will be given 60 mg IV solumedrol prior to discharge. He' ll be discharged with instructions to follow-up with his primary care physician or automobile damage field appraiser and return immediately for any worsening symptoms. He understands and agrees to plan. Diagnosis Primary Impression: COPD exacerbation Referrals: Jasen Zacarias MD Primary Care Physician Additional Instructions: Rest and drink plenty of fluids. Continue prednisone and Levaquin as directed. Use inhalers and nebulizer machines as directed, as needed for shortness of breath. Follow-up with a primary care physician. Return to the emergency room for worsening symptoms. Disposition: 01 DISCHARGE HOME Condition: Stable Elisa Morataya Jul 09, 2017 11:37
[2017-07-09 12:00] LABS: INTERNATIONAL NORMALIZED RATIO 1.2 RATIO; PROTHROMBIN TIME - PATIENT 12.6 SEC (9.8-11.6)
--- NOTE | 2017-07-09 12:02 | RADRPT ---
EXAM DATE/TIME: 07/09/2017 11:43 [facility] COMPARISON: CHEST SINGLE AP, April 10, 2017, 4:26. INDICATIONS : Short of breath. MEDICAL HISTORY : Chronic obstructive pulmonary disease. SURGICAL HISTORY : many thoracentesises, left lower lobe surgery- lung cancer ENCOUNTER: Initial ACUITY: 3 days PAIN SCORE: 0/10 LOCATION: Bilateral chest FINDINGS: A single view of the chest demonstrates a slightly elevated left hemidiaphragm with blunting suggesti ng small pleural effusion. Mild pulmonary vascular congestion.. Osseous structures are intact. Multi ple healed left-sided rib fractures. CONCLUSION: Elevated left hemidiaphragm and small left pleural effusion. Gray Bernardo MD on July 09, 2017 at 11:59 Board Certified Radiologist. This report was verified electronically.
[2017-07-09 12:05] LABS: HEMATOCRIT 28.9 % (39.0-51.0); HEMOGLOBIN 9.5 GM/DL (13.0-17.0); MEAN CELL VOLUME 83.8 FL (80.0-100.0); MEAN CORPUSCULAR HEMOGLOBIN 27.7 PG (27.0-34.0); MEAN PLATELET VOLUME 12.1 FL (7.0-11.0); PLATELET COUNT 289 TH/MM3 (150-450); RED BLOOD COUNT 3.45 MIL/MM3 (4.50-5.90); RED CELL DISTRIBUTION WIDTH 31.7 % (11.6-17.2); WHITE BLOOD COUNT 2.8 TH/MM3 (4.0-11.0)
--- NOTE | 2017-07-09 12:22 | RADRPT ---
EXAM DATE/TIME: 07/09/2017 11:59 [facility] COMPARISON: No previous studies available for comparison. INDICATIONS : Shortness of breath RADIATION DOSE: 13.32 CTDIvol (mGy) MEDICAL HISTORY : Cardiovascular disease. Hypertension. Chronic obstructive pulmonary disease. Renal disease, Diabetes, Colon cancer, Left Lung cancer SURGICAL HISTORY : None. ENCOUNTER: Initial ACUITY: 3 days PAIN SCALE: 3/10 LOCATION: chest TECHNIQUE: Volumetric scanning of the chest was performed. Using automated exposure control and adjustment of t he mA and/or kV according to patient size, radiation dose was kept as low as reasonably achievable to obtain optimal diagnostic quality images. DICOM format image data is available electronically for r eview and comparison. Follow-up recommendations for detected pulmonary nodules are based at a minimum on nodule size and pa tient risk factors according to Fleischner Society Guidelines. FINDINGS: LUNGS: There is extensive consolidation in the medial right lung I suspect related to radiation therapy cabrera ge. It is similar to the March exam. There is emphysema in the apices right greater than left. PLEURAE: Bilateral pleural effusions right greater than left.. MEDIASTINUM: The heart and great vessels demonstrate no acute abnormality. There is no mediastinal or hilar lymph adenopathy. Dense coronary atherosclerotic disease AXILLAE: Within normal limits. No lymphadenopathy. MUSCULOSKELETAL: Within normal limits for patient age. MISCELLANEOUS: The visualized upper abdominal organs demonstrate no acute abnormality. CONCLUSION: There Is extensive consolidation in the medial right lung similar to the March 2017 exam. No new in filtrate or mass is identified. Small bilateral pleural effusions. Diffuse underlying interstitial triny ng disease with emphysema in the apices. Gray Bernardo MD on July 09, 2017 at 12:16 Board Certified Radiologist. This report was verified electronically.
[2017-07-09 12:28] LABS: ALBUMIN 3.5 GM/DL (3.4-5.0); ALKALINE PHOSPHATASE 69 U/L (45-117); ALT (GPT) 19 U/L (12-78); BICARBONATE 27.2 MEQ/L (21.0-32.0); BLOOD UREA NITROGEN 18 MG/DL (7-18); CALCIUM 9.2 MG/DL (8.5-10.1); CHLORIDE 99 MEQ/L (98-107); CREATININE 1.05 MG/DL (0.60-1.30); GLOMERULAR FILTRATION RATE 70 ML/MIN (>89); GLUCOSE,RANDOM 111 MG/DL (74-106); SODIUM (NA) 134 MEQ/L (136-145); TOTAL BILIRUBIN ADULT 2.4 MG/DL (0.2-1.0); TOTAL PROTEIN 7.9 GM/DL (6.4-8.2); TROPONIN I LESS THAN 0.02 NG/ML (0.02-0.05)
[2017-07-09 12:29] LABS: AST (GOT) 48 U/L (15-37)
[2017-07-09 13:01] LABS: BANDS 19 % (0-6); BASOPHILS 3 % (0-2); CORRECTED NUCLEATED RBC 4 /100 WBC (0-0); LYMPHOCYTES 9 % (9-44); METAMYELOCYTES 16 % (0-1); MONOCYTES 3 % (0-8); MYELOCYTES 2 % (0-0); NEUTROPHIL # MANUAL DIFF 2.3 TH/MM3 (1.8-7.7); NUCLEATED RED BLOOD CELL 4 (0-0); POLYS (SEG NEUTROPHILS) 46 % (16-70)
[2017-07-09 13:02] LABS: ACANTHOCYTES 2+ (NORMAL); OVALOCYTES 1+ (NORMAL); TOXIC VACUOLATION PRESENT (NONE SEEN)
[2017-07-09 13:04] LABS: TOXIC GRANULATION 1+ (NORMAL)
[2017-07-09] MEDS ORDERED: methylPREDNISolone SOD SUCC 125 MG/2 ML VIAL IV PUSH SCH (13:30)
[2017-07-09 13:31] VITALS: BP 102/57
--- NOTE | 2017-07-10 22:56 | EKG ---
Date Performed: 07/09/2017 Time Performed: 13:10:57 PTAGE: 71 years EKG: ATRIAL FLUTTER/TACHYCARDIA MARKED LEFT AXIS DEVIATION MODERATE INTRAVENTRICULAR CONDUCTION DELAY NONSPECIFIC ST & T-WAVE ABNORMALITY ABNORMAL ECG PREVIOUS TRACING : 12/02/2016 12.03 Since previous tracing, no significant change noted DOCTOR: Dimitri Adams Interpretating Date/Time 07/10/2017 22:55:30
== END 2017-07-09 14:02 | disposition home or self-care (01) ==
LOC: NEPE 09:45
DX: J44.1 Chronic obstructive pulmonary disease with (acute) exacerbation (principal); I48.91 Unspecified atrial fibrillation; J44.9 Chronic obstructive pulmonary disease, unspecified; Z85.118 Personal history of other malignant neoplasm of bronchus and lung; I48.92 Unspecified atrial flutter; R00.0 Tachycardia, unspecified; R94.31 Abnormal electrocardiogram [ECG] [EKG]; J90 Pleural effusion, not elsewhere classified; I10 Essential (primary) hypertension
CPT/HCPCS: 71045; 71250; 80053; 82550; 82552; 83605; 84484; 85007; 85027; 85610; 85730; 87040; 87804; 93005; 99285